=== PATIENT | male | born 1960 | race Caucasian/White ===

== ENCOUNTER → 2022-03-18 12:18 | Outpatient (CLI) | payer OTHER, SELFPAY ==
--- NOTE | ~2022-03-18 | CT_ITS ---
EXAMINATION: CT lung screening DATE: 03/18/2022 12:48 INDICATION: Personal history nicotine dependence, current smoker TECHNIQUE: Computed tomography (CT) of the chest was performed without intravenous contrast. The dose -length product (DLP) was 139.40 mGy-cm. Automated exposure control and iterative reconstruction tech nique were employed. COMPARISON: None FINDINGS: There is mild emphysema. No suspicious pulmonary nodules are identified. No suspicious pulm onary nodules are identified. There is mild dependent atelectasis. There is mild thoracic spondylosis . No pathologically enlarged thoracic lymph nodes are identified. The heart size is normal. There is calcified coronary artery atherosclerosis. The gallbladder is surgically absent. IMPRESSION: 1. Lung-RADS category 1: Negative. Continue annual screening with noncontrast low-dose chest CT in 12 months. Reviewed, dictated and finalized at location F. BOTOMY INSTRUCTOR IMPRESSION: 1. Lung-RADS category 1: Negative. Continue annual screening with noncontrast l ow-dose chest CT in 12 months.
== END ==
PROVIDERS: PCP Family Medicine; Visit Provider Family Medicine
DX: Z12.2 Encounter for screening for malignant neoplasm of respiratory organs (principal); Z87.891 Personal history of nicotine dependence
CPT/HCPCS: 71271

== ENCOUNTER → 2022-04-06 07:45 | Outpatient (CLI) | payer OTHER, SELFPAY ==
--- NOTE | ~2022-04-06 | MR_ITS ---
EXAMINATION: MR lumbar spine wo con DATE: 04/06/2022 08:20 INDICATION: Left-sided sciatica. TECHNIQUE: Magnetic resonance imaging (MRI) of the lumbar spine was performed without intravenous con trast. Sequences included sagittal T2-weighted FSE, sagittal T2-weighted FS FSE, sagittal T1-weighted FSE, and axial T2-weighted FSE. COMPARISON: None FINDINGS: Bone alignment is normal. Vertebral body heights and intervertebral disc heights are normal . The distal spinal cord signal intensity is normal. The conus medullaris is at T12-L1. The following disc levels are specifically discussed: L1-L2: The disc does not extend beyond the endplate margin. There is mild bilateral facet joint osteo arthritis. There is no neural foraminal stenosis. There is no central canal stenosis. L2-L3: The disc does not extend beyond the endplate margin. There is mild bilateral facet joint osteo arthritis. There is no neural foraminal stenosis. There is no central canal stenosis. L3-L4: There is a right foraminal protrusion. There is mild bilateral facet joint osteoarthritis. The re is mild right neural foraminal stenosis. There is no central canal stenosis. L4-L5: The disc is bulging. There is moderate bilateral facet joint osteoarthritis. There is mild alexandra ateral neural foraminal stenosis. There is mild central canal stenosis. L5-S1: The disc is bulging and has an annular fissure. There is moderate right and mild left facet merline int osteoarthritis. There is mild right neural foraminal stenosis. There is mild central canal stenos is. IMPRESSION: 1. Mild lumbar spondylosis. Reviewed, dictated and finalized at location E. GN PRINTING MACHINE SETTER IMPRESSION: 1. Mild lumbar spondylosis.
== END ==
PROVIDERS: PCP Family Medicine; Visit Provider Family Medicine
DX: M54.30 Sciatica, unspecified side (principal); M47.816 Spondylosis without myelopathy or radiculopathy, lumbar region
CPT/HCPCS: 72148

== ENCOUNTER 2023-07-21 12:50 | Outpatient (CLI) | payer OTHER, SELFPAY ==
--- NOTE | ~2023-07-21 | XR_ITS ---
XR_CERV2-3V_CR DATE: 07/21/2023 13:08 INDICATION: Cervical radiculopathy TECHNIQUE: Flexion and extension lateral views. AP view. COMPARISON: None FINDINGS: C1 and C2 are normally aligned and the odontoid process is intact. No fracture or dislocati on or locked facet or prevertebral soft tissue swelling. Moderately prominent degenerative disc disease at C6-7. The remaining cervical interspaces are well p reserved. No instability on flexion or extension is noted. IMPRESSION: Moderately prominent degenerative disc disease at C6-7 Reviewed, dictated and finalized at Location A. Reviewed, dictated and finalized at location B.
== END 2023-07-21 12:51 | disposition home or self-care (01) ==
LOC: ANHIMG 12:54
PROVIDERS: PCP Family Medicine; Visit Provider Neurological Surgery
DX: M47.812 Spondylosis without myelopathy or radiculopathy, cervical region (principal); M50.20 Other cervical disc displacement, unspecified cervical region; M54.12 Radiculopathy, cervical region; M50.323 Other cervical disc degeneration at C6-C7 level
CPT/HCPCS: 72040

== ENCOUNTER 2023-08-15 08:44 | Outpatient (CLI) | payer OTHER, SELFPAY ==
--- NOTE | 2023-08-15 08:53 | ECG_ITS ---
SEE SCANNED COPY FOR CONFIRMED REPORT MTDD
[2023-08-15 09:18] LABS: Hematocrit 47.5 % (42.0-52.0); Hemoglobin 16.3 g/dL (14.0-18.0); Mean Corpuscular HGB Conc 34.3 g/dl (32-36); Mean Corpuscular Hemoglobin 30.4 pg (26-34); Mean Corpuscular Volume 88.6 fl (80-100); Mean Platelet Volume 9.6 fl (7.4-10.4); Platelet Count Result 244 k/mm3 (150-375); Red Blood Count 5.36 M/mm3 (4.6-6.20); Red Cell Distribution Width 12.3 % (11.5-14.5); White Blood Count 8.8 K/mm3 (4.5-10.0)
[2023-08-15 09:30] LABS: Anion Gap 6 mmol/L (4-12); Blood Urea Nitrogen 9 mg/dL (9-20); Calcium 9.9 mg/dL (8.4-10.2); Carbon Dioxide 30 mmol/L (22-30); Chloride 101 mmol/L (98-107); Estimated Glomerular Filt Rate > 60; Glucose 230 mg/dL (65-110); Potassium 3.5 mmol/L (3.4-5.0); Sodium 137 mmol/L (137-145)
[2023-08-15 09:32] LABS: Prothrombin Time 13.1 Seconds (11.1-14.7)
[2023-08-15 09:33] LABS: Hemoglobin A1C 7.2 % (<5.7)
[2023-08-15 09:33] LABS: Partial Thromboplastin Time 38.7 Seconds (22.3-36.8)
[2023-08-15 09:55] LABS: Appearance Urine Clear (Clear); Bacteria Urine None Seen /hpf; Bilirubin Urine 1+ (Negative); Blood Urine Negative (Negative); Color Urine Dark Yellow (Yellow); Glucose Urine UA Trace mg/dL (Negative); Hyaline Casts Urine Present /lpf; Ketones Urine Trace mg/dL (Negative); Leukocyte Esterase Ur Negative LEU/UL (Negative); Need Manual Microscopic Reviewed; Nitrate Urine Negative (Negative); Non Pathogenic Casts >20; Protein Urine 2+ mg/dL (Negative); RBC Urine 0-2 /hpf (0-2); Squamous Epithelial Cell Urine Occasional /hpf (Few); WBC Urine 0-5 /hpf (0-3)
[2023-08-15 09:56] LABS: Add Urine Microscopic? YES
== END 2023-08-15 08:45 | disposition home or self-care (01) ==
LOC: ANHSURGERY 08:47
PROVIDERS: PCP Family Medicine; Visit Provider Neurological Surgery
DX: E11.9 Type 2 diabetes mellitus without complications (principal); I10 Essential (primary) hypertension; M54.12 Radiculopathy, cervical region; Z01.818 Encounter for other preprocedural examination
CPT/HCPCS: 36415; 80048; 81001; 83036; 85027; 85610; 85730; 86850; 86900; 86901; 93005

== ENCOUNTER 2023-08-21 09:04 | Emergency (ER) | payer OTHER, SELFPAY ==
--- NOTE | ~2023-08-21 | CT_ITS ---
EXAMINATION: CT lumbar spine wo con DATE: 08/21/2023 10:09 INDICATION: Lumbar pain. Left hip and leg pain. TECHNIQUE: Computed tomography (CT) of the lumbar spine was performed without intravenous contrast. A utomated exposure control and iterative reconstruction technique were employed. The dose-length produ ct was 400.31 mGy-cm. COMPARISON: Lumbar spine MRI 04/06/2022 FINDINGS: Bone alignment is normal. Vertebral body heights are normal. Intervertebral disc heights ar e normal. The following disc levels are specifically discussed: L1-L2: The disc does not extend beyond the endplate margin. There is mild bilateral facet joint osteo arthritis. There is no neural foraminal stenosis. There is no central canal stenosis. L2-L3: The disc is mildly bulging. There is moderate bilateral facet joint osteoarthritis. There is m ild bilateral neural foraminal stenosis. There is mild central canal stenosis. L3-L4: The disc is bulging. There is mild bilateral facet joint osteoarthritis. There is mild bilater al neural foraminal stenosis. There is mild central canal stenosis. L4-L5: The disc is bulging. There is moderate right and severe left facet joint osteoarthritis. There is mild bilateral neural foraminal stenosis. There is mild central canal stenosis. L5-S1: The disc is bulging. There is moderate bilateral facet joint osteoarthritis. There is mild alexandra ateral neural foraminal stenosis. There is mild central canal stenosis. IMPRESSION: 1. Stable mild lumbar spondylosis. Reviewed, dictated and finalized at location E.
[2023-08-21 09:18] VITALS: BP 147/87; PULSE 79; RESP 20; TEMP 36.7; O2SAT 100
[2023-08-21] MEDS: diazePAM (*CRX) 5 MG TABLET PO (10:32)
[2023-08-21] MEDS: LIDOCAINE 5% PATCH 1 PATCH TRANSDERM (10:32)
[2023-08-21] MEDS: fentaNYL CITRATE INJ (*CRX) 100 MCG/2 ML VIAL 25 MCG IV PUSH (10:33)
[2023-08-21] MEDS: KETOROLAC 30 MG/ML VIAL (*BKC) IV PUSH (10:33)
[2023-08-21 10:34] LABS: Basophils Absolute Auto 0.1 K/mm3 (0.0-0.1); Basophils Percent Auto 1.3 % (0.2-1.2); Eosinophils Absolute Auto 0.3 K/mm3 (0-0.3); Hematocrit 48.2 % (42.0-52.0); Hemoglobin 16.5 g/dL (14.0-18.0); Immature Granulocyte Absolute 0.06 K/mm3 (0.00-0.031); Immature Granulocyte Percent A 0.7 % (0-0.5); Lymphocytes Percent Auto 24.2 % (18.3-44.2); Mean Corpuscular HGB Conc 34.2 g/dl (32-36); Mean Corpuscular Hemoglobin 30.7 pg (26-34); Mean Corpuscular Volume 89.8 fl (80-100); Mean Platelet Volume 9.4 fl (7.4-10.4); Monocytes Absolute Auto 0.7 K/mm3 (0.1-0.6); Monocytes Percent Auto 7.3 % (2.6-8.5); Neutrophils Absolute Auto 5.8 K/mm3 (1.3-6.7); Neutrophils Percent Auto 63.5 % (45.5-73.1); Platelet Count Result 234 k/mm3 (150-375); Red Blood Count 5.37 M/mm3 (4.6-6.20); Red Cell Distribution Width 12.4 % (11.5-14.5); White Blood Count 9.1 K/mm3 (4.5-10.0)
--- NOTE | 2023-08-21 10:35 | ED.GENADULT ---
HPI - General Adult General Chief complaint: Extremity Problem,Nontraumatic Stated complaint: L leg pain denies injury or trauma Time Seen by Provider: 08/21/23 09:19 History of Present Illness HPI narrative: Iain Nguyen is a 62 y/o male who presents with reports of chronic low back pain, he states he is scheduled for surgery with Dr. Silva in 2 days for his cervical spine. He states that he is seeing a new pain management doc but could not get his usual steroid injection due to insurance issues and he is having increased pain to his lower lumbar. He states the increased pain started about 3 weeks ago pain to mid lumbar down left hip/ left thigh and decreased sensation from the knee down to his foot. He states the new paraesthesia started about 2 weeks ago. He denies any new injury / trauma No loss of bowel or bladder Related Data Home Medications Medication Instructions Recorded Confirmed acetaminophen 300 mg-codeine 60 mg 1 tablet PO Q8H PRN Pain 04/12/23 08/14/23 tablet amlodipine 10 mg tablet 10 mg PO DAILY 04/12/23 08/14/23 losartan 50 mg tablet 50 mg PO DAILY 04/12/23 08/14/23 omeprazole 20 mg capsule,delayed 20 mg PO DAILY 04/12/23 08/14/23 release pregabalin 100 mg capsule 100 mg PO BID 04/12/23 08/14/23 evolocumab 140 mg/mL subcutaneous 140 mg subcut MONTHLY 07/13/23 08/14/23 pen injector (Sophia Marroquin) cyanocobalamin (vitamin B-12) 1,000 mcg subcut ONCE 08/14/23 08/14/23 1,000 mcg/mL injection kit ergocalciferol (vitamin D2) 1,250 1,250 mcg PO WEEKLY 08/14/23 08/14/23 mcg (50,000 unit) capsule (Vitamin D2) semaglutide 0.25 mg or 0.5 mg (2 0.5 mg subcut WEEKLY 08/14/23 08/14/23 mg/3 mL) subcutaneous pen injector (Ozempic) Allergies Allergy/AdvReac Type Severity Reaction Status Date / Time acetaminophen [From Vicodin] AdvReac Severe Jittery Verified 08/21/23 09:05 hydrocodone [From Vicodin] AdvReac Severe Jittery Verified 04/22/24 09:05 Review of Systems Review of Systems: CONSTITUTIONAL: Denies fever, chills, or sweats. EYES: Denies visual changes, redness, or discharge. ENT: Denies rhinorrhea, congestion, sore throat, or otalgia. CARDIOVASCULAR: Denies chest pain, palpitations, or edema. RESPIRATORY: Denies cough or dyspnea. GASTROINTESTINAL: Denies abdominal pain, nausea, vomiting, or diarrhea. GENITOURINARY: Denies dysuria or hematuria. SKIN: Denies rash or itching. MUSCULOSKELETAL: mid lower back pain that moves down left leg. NEUROLOGIC: Denies headache, numbness, dizziness, or weakness. PSYCHIATRIC: Denies anxiety or depression. [facility] Family History Family History Father Diabetes mellitus Mother Cerebrovascular accident Social History Social History Smoking packs per day: 1 Smoking cigarettes per day: 20.0 Years smoked: 20 Smoking pack-years: 20.00 Smoking status: Former smoker Tobacco type: cigarettes Smoking end date: 06/30/23 Alcohol intake: never Substance use: current Substance use type: marijuana Do You Feel Safe in your Home?: Yes Lack of Transportation: No Lack of Food: Never True Current Housing: I Have Housing Concerned About Future Housing: No Difficulty Paying Gas/Electric Bills: Decline to Answer Difficulty Paying for Meds: No Currently Unemployed: No Education: High School Diploma/GED Difficulty w/ Childcare or Family Care: No Living arrangements: with family Spiritual care concerns: No Exam Narrative: GENERAL: Well-appearing, well-nourished, and in no acute distress. HEAD: Normocephalic, atraumatic. EYES: PERRLA and EOMI. ENT: Nares clear, no rhinorrhea or epistaxis. Mucous membranes moist. Oropharynx without tonsillar hypertrophy exudate or other lesions. NECK: Supple. No adenopathy or masses. No carotid bruits or JVD CHEST: Clear to auscultation. No respiratory distress. No wheezes
[2023-08-21 10:46] LABS: Anion Gap 3 mmol/L (4-12); Blood Urea Nitrogen 12 mg/dL (9-20); Calcium 9.6 mg/dL (8.4-10.2); Carbon Dioxide 32 mmol/L (22-30); Chloride 101 mmol/L (98-107); Estimated CRCL calculation 95 ml/min; Estimated Glomerular Filt Rate > 60; Glucose 214 mg/dL (65-110); Potassium 4.3 mmol/L (3.4-5.0); Sodium 136 mmol/L (137-145)
[2023-08-21 10:49] VITALS: BP 152/74; PULSE 67; RESP 17; O2SAT 98
== END 2023-08-21 12:40 | disposition home or self-care (01) ==
PROVIDERS: Emergency Provider Nurse Practitioner Family; PCP Family Medicine
DX: M54.50 Low back pain, unspecified (principal); G89.29 Other chronic pain; M47.816 Spondylosis without myelopathy or radiculopathy, lumbar region; Z87.891 Personal history of nicotine dependence
CPT/HCPCS: 36415; 72131; 80048; 85025; 96374; 96375; 99284; A9270; J1885; J3010

== ENCOUNTER 2023-08-21 15:16 | Emergency (ER) | payer OTHER, SELFPAY ==
[2023-08-21 15:21] VITALS: BP 130/72; PULSE 88; TEMP 36.1; O2SAT 98
--- NOTE | 2023-08-21 16:13 | ED.GENADULT ---
HPI - General Adult General Chief complaint: Fall Stated complaint: syncopal, toe injury, right leg pain Time Seen by Provider: 08/21/23 16:14 Focused HPI: Iain Nguyen is a 62 y/o male who presents with reports of tripping on the curb hit his left toe on the curb and fell on to his right knee. He denies hitting his head denies LOC Abrasion to his right knee/ and left great toe abrasion. He was seen earlier for his chronic back pain and states that his back pain still feels better then when he came in earlier today Denies any new numbness/tingling/ loss of bowel or bladder Discussed checking a head CT due to the fall but he states he doesn't need that as he and his witnessed that he did not hit his head GENERAL: Well-appearing, well-nourished, and in no acute distress. HEAD: Normocephalic, atraumatic. CHEST: Clear to auscultation. ?No respiratory distress. HEART: Regular rate and rhythm.? NEURO: ?Alert and oriented x3. Patient screened in triage and initial orders placed.? ?Additional care and disposition to be based upon?diagnostic testing and treatment. Related Data Home Medications Medication Instructions Recorded Confirmed acetaminophen 300 mg-codeine 60 mg 1 tablet PO Q8H PRN Pain 04/12/23 08/14/23 tablet amlodipine 10 mg tablet 10 mg PO DAILY 04/12/23 08/14/23 losartan 50 mg tablet 50 mg PO DAILY 04/12/23 08/14/23 omeprazole 20 mg capsule,delayed 20 mg PO DAILY 04/12/23 08/14/23 release pregabalin 100 mg capsule 100 mg PO BID 04/12/23 08/14/23 evolocumab 140 mg/mL subcutaneous 140 mg subcut MONTHLY 07/13/23 08/14/23 pen injector (Sophia Marroquin) cyanocobalamin (vitamin B-12) 1,000 mcg subcut ONCE 08/14/23 08/14/23 1,000 mcg/mL injection kit ergocalciferol (vitamin D2) 1,250 1,250 mcg PO WEEKLY 08/14/23 08/14/23 mcg (50,000 unit) capsule (Vitamin D2) semaglutide 0.25 mg or 0.5 mg (2 0.5 mg subcut WEEKLY 08/14/23 08/14/23 mg/3 mL) subcutaneous pen injector (Ozempic) Allergies Allergy/AdvReac Type Severity Reaction Status Date / Time acetaminophen [From Vicodin] AdvReac Severe Jittery Verified 08/21/23 09:05 hydrocodone [From Vicodin] AdvReac Severe Jittery Verified 08/21/23 09:05 PMF Family History Family History Father Diabetes mellitus Mother Cerebrovascular accident Social History Social History Smoking packs per day: 1 Smoking cigarettes per day: 20.0 Years smoked: 20 Smoking pack-years: 20.00 Smoking status: Former smoker Tobacco type: cigarettes Smoking end date: 06/30/23 Alcohol intake: never Substance use: current Substance use type: marijuana Do You Feel Safe in your Home?: Yes Lack of Transportation: No Lack of Food: Never True Current Housing: I Have Housing Concerned About Future Housing: No Difficulty Paying Gas/Electric Bills: Decline to Answer Difficulty Paying for Meds: No Currently Unemployed: No Education: High School Diploma/GED Difficulty w/ Childcare or Family Care: No Living arrangements: with family Spiritual care concerns: No Course Vital Signs Vital signs: Vital Signs Temperature 36.1 C L 08/21/23 15:21 Pulse Rate 88 08/21/23 15:21 Blood Pressure 130/72 08/21/23 15:21 Pulse Oximetry 98 08/21/23 15:21 Temperature 36.1 C L 08/21/23 15:21 Pulse Rate 88 08/21/23 15:21 Blood Pressure 130/72 08/21/23 15:21 Pulse Oximetry 98 08/21/23 15:21 Medical Decision Making Vital Signs Vital Signs: Vital Signs Temperature 36.1 C L 08/21/23 15:21 Pulse Rate 88 08/21/23 15:21 Blood Pressure 130/72 08/21/23 15:21 Pulse Oximetry 98 08/21/23 15:21 Temperature 36.1 C L 08/21/23 15:21 Pulse Rate 88 08/21/23 15:21 Blood Pressure 130/72 08/21/23 15:21 Pulse Oximetry 98 04/22/24 15:21 Discharge Plan Discharge Clinical Impression: Fal
--- NOTE | 2023-08-21 16:23 | PC.NURSE ---
Pt told MSE provider he decided he did not want to be seen. Pt triaged. Pt ambulated out in NAD.
== END 2023-08-21 17:17 | disposition left against medical advice (07) ==
LOC: ANHED 16:27
PROVIDERS: Emergency Provider Nurse Practitioner Family; PCP Family Medicine
DX: S89.91XA Unspecified injury of right lower leg, initial encounter (principal)
CPT/HCPCS: 99199

== ENCOUNTER 2023-08-23 00:54 | Day surgery (SDC) | payer OTHER, SELFPAY ==
[2023-08-14 14:15] VITALS: BMI 25.4
--- NOTE | 2023-08-14 14:26 | PC.NURSE ---
Report to the Outpatient Waiting Room, entrance under the green pavilion located off [facility], at time 6:00 on date 08/23/23. Planned Procedure Time: 7:30. Time changes happen often and if your time is changed the preop area will call you the afternoon before. - You and your visitor will be asked to self-screen and do not enter if you have any COVID symptoms. - A mask is optional within the hospital at this time. Patients may have clear liquids (water, carbonated beverages, clear teas, apple juice) until 3 hours prior to surgery (4:30) with a maximum of 20 ounces. - No food from midnight until time of surgery Take the following medications with a SIP of water the morning of surgery: AMLODIPINE, PREGABALIN, PAIN PILL IF NEEDED DO NOT STOP ANY OF YOUR OTHER PRESCRIPTION MEDICATIONS PRIOR TO SURGERY ?EXCEPT THE FOLLOWING Medications to discontinue per physician: VITAMINS/SUPPLEMENTS Date to take last dose: 08/19/23 Please no make-up, nail fijian, hairspray, perfume, deodorant, or body powder the day of surgery. No jewelry (including any body piercings) or valuables the day of surgery, leave them at home. Please take a shower or bath the night before, or the morning of, surgery with an antibacterial soap. Wear comfortable, loose fitting clothing. - Jewelry must be removed prior to entering the operating room. Rings and piercings that are not removed may be cut off. - The hospital will not accept responsibility for valuables. - Please leave all valuables, including medications, at home the day of surgery. If you are going home after surgery, a licensed dump truck driver off highway must drive you home. - NO public transportation without another adult if you receive anesthesia. - We recommend that an adult stay with you for 24 hours following discharge. - We also recommend that you do not drive, make important decision, drink alcoholic beverages, or take any drugs that were not prescribed by your health care provider for at least 24 hours after your discharge time. Follow any additional instructions given to you from your surgeon. If you or anyone in your household have experienced Covid symptoms in the past week, please notify your surgeon or the nurse liaison at the phone number below for possible testing. Telephone instructions given to PT Penny PUGH and asked if any additional questions and then verbalized understanding. Patient advised to call surgeon office or pre surgery nurse liaison [phone] if any additional questions.
[2023-08-23] VITALS (12 sets, daily range): BP systolic 137–188; BP diastolic 77–98; PULSE 73–105; RESP 12–20; TEMP 36.3–37.1; O2SAT 95–100
--- NOTE | ~2023-08-23 | XR_ITS ---
XR fluoroscopy no charge Indication: C5-6, C6-7 discectomy and fusion TECHNIQUE: Fluoroscopy used during C5-6, C6-7 discectomy and fusion performed by [Liset ramos MD] on 08/23/2023. 7 seconds of fluoroscopy with 3 fluoroscopic images captured. FINDINGS: Correlate with procedure note. IMPRESSION: Fluoroscopy used during C5-6, C6-7 discectomy and fusion. Reviewed, dictated and finalized at location B.
[2023-08-23] MEDS: LACTATED RINGERS 1,000 ML 30 ML IV CONT ×2 (06:39→10:38)
[2023-08-23 06:51] LABS: Glucose Point of Care 257 mg/dl (65-105)
[2023-08-23 06:53] LABS: Partial Thromboplastin Time 33.8 Seconds (22.3-36.8)
[2023-08-23] MEDS: INSULIN HUMAN REGULAR (*BKC) 100 UNITS/ML SUB-Q (06:54)
--- NOTE | 2023-08-23 07:16 | WPDHPUPDATE1 ---
History and Physical Update Update Date/Time: 08/23/23 07:16 History and Physical has been reviewed, including an updated exam of the patient. There are NO changes in the patient's condition. Risks, benefits, and alternatives have been discussed and questions answered. Patient agrees to proceed with procedure.
--- NOTE | 2023-08-23 07:16 | WPDANESEPPF ---
Anes - Initial Pre Proc Eval Procedure: Operation Date: 08/23/23 07:30 Proposed Procedures p Anterior Cervical Discectomy and Fusion C5-6, C6-7 - Liset Lopez MD Date/Time: 08/23/23 07:16 Surgeon: Liset Lopez MD Pre Op Diagnosis: Cerv Radiculopathy Patient Data Age: 62 Gender: M Height: 1.75 m Weight: 77.8 kg Last Vital Signs Temp 97.3 F L 08/23/23 06:14 Pulse 90 08/23/23 06:14 Resp 20 08/23/23 06:14 BP 142/77 H 08/23/23 06:14 Pulse Ox 100 08/23/23 06:14 O2 Del Method Room Air 08/23/23 06:14 Allergies Allergy/AdvReac Type Severity Reaction Status Date / Time hydrocodone [From Vicodin] AdvReac Severe Jittery Verified 08/23/23 06:08 Home Medications Medication Instructions Recorded Confirmed Type acetaminophen 300 mg-codeine 60 mg 1 tablet PO Q8H PRN Pain 04/12/23 08/23/23 History tablet amlodipine 10 mg tablet 10 mg PO DAILY 04/12/23 08/23/23 History losartan 50 mg tablet 50 mg PO DAILY 04/12/23 08/23/23 History omeprazole 20 mg capsule,delayed 20 mg PO DAILY 04/12/23 08/23/23 History release pregabalin 100 mg capsule 100 mg PO BID 04/12/23 08/23/23 History evolocumab 140 mg/mL subcutaneous 140 mg subcut MONTHLY 07/13/23 08/23/23 History pen injector (Sophia Marroquin) cyanocobalamin (vitamin B-12) 1,000 mcg subcut ONCE 08/14/23 08/23/23 History 1,000 mcg/mL injection kit ergocalciferol (vitamin D2) 1,250 1,250 mcg PO WEEKLY 08/14/23 08/23/23 History mcg (50,000 unit) capsule (Vitamin D2) semaglutide 0.25 mg or 0.5 mg (2 0.5 mg subcut WEEKLY 08/14/23 08/23/23 History mg/3 mL) subcutaneous pen injector (Stephanie) cyclobenzaprine 10 mg tablet 10 mg PO TID PRN muscle spasm #30 08/21/23 08/23/23 Rx tabs Laboratory Tests 08/23/23 08/23/23 06:36 06:43 APTT 33.8 Seconds (22.3-36.8) POC Capillary Glucose 257 H mg/dl (65-105) Patient hx anesthesia problems: none Family hx anesthesia problems: none Results Review: All pre-operative results and documents have been reviewed as part of the pre-operative evaluation. PMF Family History Family History Father Diabetes mellitus Mother Cerebrovascular accident Social History Social History Smoking packs per day: 1 Smoking cigarettes per day: 20.0 Years smoked: 20 Smoking pack-years: 20.00 Smoking status: Former smoker Tobacco type: cigarettes Smoking end date: 06/30/23 Alcohol intake: never Substance use: current Substance use type: marijuana Do You Feel Safe in your Home?: Yes Lack of Transportation: No Lack of Food: Never True Current Housing: I Have Housing Concerned About Future Housing: No Difficulty Paying Gas/Electric Bills: Decline to Answer Difficulty Paying for Meds: No Currently Unemployed: No Education: High School Diploma/GED Difficulty w/ Childcare or Family Care: No Living arrangements: with family Spiritual care concerns: No Anes - Eval Final PreProcedure Day of Procedure 08/23/23 07:16 Patient weight: normal Heart: regular rate and rhythm Lungs: clear to auscultation Airway: Mallampati scale class II and special considerations (Edentulous. ) Neurological: alert and oriented Last oral intake: >/= 8 hours ASA classification: III Emergent: no Anesthetic plan: proceed Anesthesia type and monitoring: general ETT and standard monitoring Results Review: All pre-operative results and documents have been reviewed as part of the pre-operative evaluation. Pt w FBSB 257 this am, treated w insulin sc. Pt smoked marijuana at 4 am, otherwise typically smokes 1 ppd. Discussed case w surgeon in preop area. Informed Consent: The patient's anesthetic plan and its attendant risks and benefits were discussed with the patient/family/POA. Questions were solicited and answers provided
--- NOTE | 2023-08-23 07:16 | PM.IMHP ---
H&P: HPI History of Present Illness Date/Time: 08/23/23 07:16 Chief Complaint: neck, left arm pain Narrative: From 04/19: Mr. Nguyen is a 62-year-old male with history of diabetes who returns for follow-up neck and left arm pain.? He reports a long history of axial neck pain for which he has had some physical therapy in the past.? Over the last few months, he has developed intermittent pain in the left arm radiating into the 4th and 5th fingers on the left hand.? This occurs a couple times per week but is quite bothersome for him when it occurs.? He has paresthesias in a similar distribution as well as into his middle finger.? 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 He currently takes Tylenol No. 4 for his pain.? He had 1 cervical epidural steroid injection on the left side at C7-T1 with Dr. Shay which was helpful for a couple days.? He has not had any recent physical therapy for his neck.? 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 He denies issues with dropping things.? He reports some longstanding issues with balance and tripping.? He denies any bowel or bladder changes. ? Of note, he is a long-time 2 pack per day smoker but quit a few weeks ago in case he would need any surgical intervention. He follows with driller portable Dr. Pichardo but denies history of heart attack or other cardiac issues. From 07/12: ? Since his last visit, he completed physical therapy which he found helpful for back spasms but not significantly help his neck or arm symptoms.? He had a left C6-7 transforaminal epidural steroid injection at the end of May with Dr. Braun which helped his symptoms for several weeks, but unfortunately he ended up in the emergency room with blood sugars over 500 from the steroid.? He currently is complaining of pain in the left shoulder blade that feels like someone is stabbing him with a knife.? He has paresthesias a continued to radiate down the left arm into the 4th and 5th fingers.? His symptoms have become progressively more bothersome for him and can be quite activity limiting for him.? He currently is taking naproxen.? He unfortunately did start smoking again after our last visit and is currently smoking 1 pack per day. Review of Systems Review of Systems: All systems reviewed & are unremarkable except as noted in HPI and below PMFSH Family History Family History Father Diabetes mellitus Mother Cerebrovascular accident Social History Social History Smoking packs per day: 1 Smoking cigarettes per day: 20.0 Years smoked: 20 Smoking pack-years: 20.00 Smoking status: Former smoker Tobacco type: cigarettes Smoking end date: 06/30/23 Alcohol intake: never Substance use: current Substance use type: marijuana Do You Feel Safe in your Home?: Yes Lack of Transportation: No Lack of Food: Never True Current Housing: I Have Housing Concerned About Future Housing: No Difficulty Paying Gas/Electric Bills: Decline to Answer Difficulty Paying for Meds: No Currently Unemployed: No Education: High School Diploma/GED Difficulty w/ Childcare or Family Care: No Living arrangements: with family Spiritual care concerns: No Meds Home Medications and Allergies Home Medications Medication Instructions Recorded Confirmed Type acetaminophen 300 mg-codeine 60 mg 1 tablet PO Q8H PRN Pain 04/12/23 08/23/23 History tablet amlodipine 10 mg tablet 10 mg PO DAILY 04/12/23 08/23/23 History losartan 50 mg tablet 50 mg PO DAILY 04/12/23 08/23/23 History omeprazole 20 mg capsule,delayed 20 mg PO DAILY 04/12/23 08/23/23 History release pregabalin 100 mg capsule 100 mg PO BID 04/12/23 08/23/23 History evolocumab 140 mg/mL subcutaneous 140 mg subcut MONTHLY 07/13/23 08/23/23 History pen injector (Sophia Marroquin) cyanocobalamin (vitamin B-12) 1,000 mcg subcut
[2023-08-23] MEDS: ceFAZolin 2 GM/D5W 50 ML 2 GM/50 ML BAG IVPB (07:37)
[2023-08-23] MEDS: BUPIVACAINE/EPINEPHRINE 0.5% 50 ML VIAL 20 ML INFILTRATE (08:18)
--- NOTE | 2023-08-23 10:17 | SUR.OPER ---
blood glucose 236 at 10:16 taken on left 2nd toe left big toe with scab below nailbed.
[2023-08-23 10:19] LABS: Glucose Point of Care 236 mg/dl (65-105)
--- NOTE | 2023-08-23 10:37 | P.OPB_ITS ---
Procedure Note - Brief Procedure Note - Brief Date of procedure: 08/23/23 Cerv Radiculopathy Post-op diagnosis: Same Procedure performed: ACDF C5-6, C6-7 Surgeon: Liset Lopez MD Lathe Machine Operator: Lizzette Anesthesia: GETA Findings: Successful ACDF without complication Estimated blood loss (mL): 25 Drains: No Packing: No Pathology: None sent Complications: None Condition: Stable Disposition: PACU
[2023-08-23 10:41] LABS: Glucose Point of Care 220 mg/dl (65-105)
[2023-08-23] MEDS: fentaNYL CITRATE INJ (*CRX) 100 MCG/2 ML VIAL 25 MCG IV PUSH ×4 (11:25→12:16)
--- NOTE | 2023-08-23 12:10 | W.PM.PROC2 ---
Procedure Note - Detailed Date of Procedure 08/23/23 Pre-op Diagnosis Cerv Radiculopathy Post-op Diagnosis Same Procedure Performed 1. Anterior cervical diskectomy C5-6, C6-7 2. Anterior cervical arthrodesis C5-6, C6-7 with i-Factor 3. Anterior cervical interbody placement at C5-6, C6-7 4. Use of microscope for microsurgical dissection 5. Use of C-arm for fluoroscopy Surgeon Liset Lopez MD Flaker Operator Lizzette Anesthesia General Indications Mr. Morgan is a 62-year-old male with history of neck and radicular left arm pain which was unresponsive to physical therapy and STACEY. MRI showed severe central stenosis at C5-6 and C6-7. I recommended surgery in the form of ACDF C5-6, C6-7. Risks including bleeding, pain, infection, weakness, paralysis, stroke, vocal cord damage, coma, and anesthetic risks were discussed. The patient provided written informed consent to proceed. Description of Procedure The patient was taken to the operating room and was transferred to the operating table in the supine position. General anesthesia was induced. Pressure points were appropriately padded, and compression devices were placed on the patient's calves. A shoulder roll was placed. The appropriate level was confirmed with the C-arm XR imaging. The patient was prepped and draped in usual sterile fashion. Perioperative antibiotics were given. Time out was performed. Local anesthesia was injected into the planned incision site. Incision was made with a 10-blade scalpel on the right side of the neck. The subcutaneous tissue was undermined above the platysma with the Metzenbaum scissors. The platysma was sharply opened horizontally. Bleeding was controlled with the bipolar. The avascular plane to the spine was dissected sharply. The anterior border of the spine was located and exposed with sharp and blunt dissection. A spinal needle was used to localize the C6-7 disc space; this was confirmed on fluoroscopy. The longus coli muscles were elevated bilaterally with a bovie. Once the C5, C6, and C7 vertebral bodies and adjacent intervertebral discs were adequately exposed, self-retaining retractors were placed. Saranac pins were placed in the C5 and C6 vertebral bodies and were distracted. An 11-blade scalpel was used to incise the C5-6 disc. A combination of Kerrisons, currettes, and pituitary instruments were used to remove each disc. The microscope was draped and brought into the surgical field. The removal of disc and osteophytes were completed using a high-speed drill, multiple Kerrison punches, and currettes. The posterior longitudinal ligament was opened with a nerve hook and kerrison rongeurs until the neuroforamen bilaterally were adequately decompressed. Interbody trial instruments were used to determine the appropriate size for the prosthetic vertebral interbody cage. Hemostasis was achieved in the disc space with surgiflo and cottonoid patties. A 6mm interbody was filled with i-Factor and placed at C5-6. The caspar pin was removed from C5 and replaced in C7. Wax was placed in the caspar pin site. This process was repeated at the C6-7 disc. The disc was removed as described above, and the posterior longitudinal ligament was opened until the neuroforamen bilaterally were adequately decompressed. Interbody trial instruments were used to determine the appropriate size for the prosthetic vertebral interbody cage. Hemostasis was achieved in the disc space. A 6mm interbody was filled with i-Factor and placed at C6-7. The Saranac pins were removed, and bone wax was used for hemostasis. Osteophytes over the vertebral bodies were removed with a Leksell and high-speed drill. A 32mm plate was placed over the vertebral bodies and secured with 14mm screws. Accurate hardware placement was confirmed with fluoroscopy. The surgical cavity was copiously irrigated; appropriate hemostasis was verified; and there was no evidence of dural tear/CSF leak. The platysma was closed with interrupted 3-0 Vicryl,
--- NOTE | 2023-08-23 12:50 | ADMGEN ---
This patient, Iain Nguyen, was admitted to 3 [facility] Surg Room 300-01. Patient/family oriented to hospital policies and general routines including ID bracelet, bed and alarms, visiting hours, pain management, procedures, bathroom and other care routines, personal items, smoking policy, room service/diet, and visiting hours. Information on how to activate the Rapid Response Team has been discussed. Patient/Family are encouraged to report perceived risks to care and to ask questions if they do not understand what they are told or what they should do.
[2023-08-23] MEDS: SODIUM CHLORIDE 0.9% IV 1,000 ML 100 ML IV CONT (13:01)
[2023-08-23] MEDS: ACETAMINOPHEN 500 MG TABLET 1000 MG PO ×3 (13:01→23:52)
[2023-08-23] MEDS: PROPARACAINE HCL 0.5% 15 ML OPHTH SOLN 1 DROP EACH EYE (13:07)
--- NOTE | 2023-08-23 13:50 | PCPTNOTE ---
Attempted PT evaluation, pt refused due to R eye pain. RN aware.
[2023-08-23] MEDS: DICLOFENAC SODIUM 0.1% OPHTH SOLN 2.5 ML BOTTLE 1 DROP EACH EYE ×2 (15:14→21:26)
[2023-08-23] MEDS: oxyCODONE HCL (*CRX) 5 MG TAB IR PO ×2 (15:14→18:48)
[2023-08-23] MEDS: ceFAZolin 1 GM/NS 50 ML 1 GM/50 ML BAG IVPB ×2 (15:15→23:52)
[2023-08-23] MEDS: ARTIFICIAL TEARS OPHTH SOLN 15 ML BOTTLE 1 DROP EACH EYE (16:06)
[2023-08-23] MEDS: PREGABALIN (*CRX) 50 MG CAPSULE 100 MG PO (17:32)
[2023-08-23] MEDS: DOCUSATE SODIUM 100 MG CAPSULE PO (21:26)
[2023-08-24 00:37] VITALS: BP 143/76; PULSE 78; RESP 16; TEMP 36.6; O2SAT 99
[2023-08-24 04:48] VITALS: BP 146/76; PULSE 76; RESP 18; TEMP 36.3; O2SAT 99
[2023-08-24] MEDS: ACETAMINOPHEN 500 MG TABLET 1000 MG PO (06:11)
[2023-08-24] MEDS: ceFAZolin 1 GM/NS 50 ML 1 GM/50 ML BAG IVPB (06:11)
[2023-08-24] MEDS: DICLOFENAC SODIUM 0.1% OPHTH SOLN 2.5 ML BOTTLE 1 DROP EACH EYE (06:12)
[2023-08-24 08:00] VITALS: BP 142/66; PULSE 68; RESP 18; TEMP 36.7; O2SAT 98
[2023-08-24] MEDS: oxyCODONE HCL (*CRX) 5 MG TAB IR PO (08:08)
[2023-08-24] MEDS: PANTOPRAZOLE 40 MG TABLET PO (08:09)
[2023-08-24] MEDS: LOSARTAN POTASSIUM 50 MG TABLET PO (08:09)
[2023-08-24] MEDS: PREGABALIN (*CRX) 50 MG CAPSULE 100 MG PO (08:09)
[2023-08-24] MEDS: DOCUSATE SODIUM 100 MG CAPSULE PO (08:09)
[2023-08-24] MEDS: amLODIPine BESYLATE 5 MG TABLET 10 MG PO (08:09)
--- NOTE | 2023-08-24 09:14 | WPDNEUROSGPN ---
Progress Note: A&P Assessment and Plan (1) Status post cervical arthrodesis: Code(s): Z98.1 - Arthrodesis status Status: Acute Plan -Discharge home this morning -Wound care and activity precautions discussed at bedside -Follow up in clinic in 2 weeks Subjective Date/time seen: 08/24/23 09:14 Interval history: Doing very well with limited pain in neck. He denies pain or paresthesias in arms. Swallowing without difficulty. He has ambulated in the halls multiple times. Voiding without difficulty Review of Systems Review of Systems: All systems reviewed & are unremarkable except as noted in HPI and below Exam Narrative: AOx4 Full strength in upper extremities Sensation intact to light touch Incision c/d/i Objective Data Vital Signs Vital Signs: Vital Signs - 24 hr 08/23/23 10:38 08/23/23 10:55 08/23/23 11:09 Temperature 97.3 F L Pulse Rate 73 80 78 Respiratory Rate 17 14 12 Blood Pressure 137/79 178/91 H 179/97 H Pulse Oximetry 100 100 100 Oxygen Delivery Simple Face Mask Simple Face Mask Simple Face Mask Oxygen Flow Rate 8 8 8 08/23/23 11:25 08/23/23 11:40 08/23/23 11:55 Temperature Pulse Rate 80 82 84 Respiratory Rate 15 15 15 Blood Pressure 174/98 H 174/98 H 170/86 H Pulse Oximetry 95 95 95 Oxygen Delivery Room Air Room Air Room Air Oxygen Flow Rate 08/23/23 13:00 08/23/23 12:09 08/23/23 12:39 Temperature 98 F 97.4 F L Pulse Rate 92 93 Respiratory Rate 16 16 Blood Pressure 180/80 H 188/80 H Pulse Oximetry 96 96 Oxygen Delivery Room Air Oxygen Flow Rate 08/23/23 13:39 08/23/23 17:39 08/23/23 21:26 Temperature 97.8 F 97.9 F 98.7 F Pulse Rate 92 93 105 H Respiratory Rate 16 16 18 Blood Pressure 181/83 H 178/81 H 149/77 H Pulse Oximetry 96 97 97 Oxygen Delivery Oxygen Flow Rate 08/24/23 00:37 08/24/23 04:48 08/24/23 08:00 Temperature 97.8 F 97.3 F L 98.0 F Pulse Rate 78 76 68 Respiratory Rate 16 18 18 Blood Pressure 143/76 H 146/76 H 142/66 H Pulse Oximetry 99 99 98 Oxygen Delivery Oxygen Flow Rate Intake/Output Intake/Output: Intake & Output 08/21/23 08/22/23 08/23/23 08/24/23 23:59 23:59 23:59 23:59 Intake Total 1180 650 Output Total 300 Balance 880 650 Meds/Results Medications: Active Medications Generic Name Dose Route Start Last Admin Trade Name Freq PRN Reason Stop Dose Admin Acetaminophen 1,000 mg 08/23/23 12:00 08/24/23 06:11 Acetaminophen 500 Mg Tablet PO 1,000 mg Q6H MARILYN Administration Al Hydrox/Mg Hydrox/Simethicone 20 ml 08/23/23 10:39 Mag Hydrox/Al Hydrox/Simeth 30 Ml Udc PO Q4H PRN Indigestion/Heartburn Amlodipine Besylate 10 mg 08/24/23 09:00 08/24/23 08:09 Amlodipine Besylate 5 Mg Tablet PO 10 mg DAILY MARILYN Administration Artificial Tears 1 drop 08/23/23 12:56 08/23/23 16:06 Artificial Tears Ophth Soln 15 Ml Bottle EACH EYE 1 drop Q2H PRN Administration Dry Eye(s) Bisacodyl 10 mg 08/23/23 10:39 Bisacodyl 10 Mg Suppository RECTAL DAILY PRN Constipation Cyclobenzaprine HCl 10 mg 08/23/23 10:41 Cyclobenzaprine Hcl 10 Mg Tablet PO TID PRN Muscle Spasms Diclofenac Sodium 1 drop 08/23/23 14:00 08/24/23 06:12 Diclofenac Sodium 0.1% Ophth Soln 2.5 Ml Bottle EACH EYE 08/27/23 13:59 1 drop Q8HR MARILYN Administration Docusate Sodium 100 mg 08/23/23 21:00 08/24/23 08:09 Docusate Sodium 100 Mg Capsule PO 100 mg Q12HR MARILYN Administration Cefazolin Sodium 1 gm in 50 mls @ 100 mls/hr 08/23/23 15:00 08/24/23 06:41 Ancef 1 Gm/Ns 50 Ml IVPB 08/24/23 14:59 Infused Q8H MARILYN Infusion Losartan Potassium 50 mg 08/24/23 09:00 08/24/23 08:09 Losartan Potassium 50 Mg Tablet PO 50 mg DAILY MARILYN Administration Ondansetron HCl 4 mg 08/23/23 10:39 Ondansetron Inj 4 Mg/2 Ml Vial IV PUSH Q8H PRN Nausea And Vomiting Oxycodone HCl 5 mg 08/23/23 10:41 08/24/23 08:08
--- NOTE | 2023-08-24 13:19 | WPDANESPN ---
Anes - Prog Note Post-Op Date/Time: 08/24/23 13:19 Vital Signs: Last Vital Signs Temp 36.7 C 08/24/23 08:00 Pulse 68 08/24/23 08:00 Resp 18 08/24/23 08:00 BP 142/66 H 08/24/23 08:00 Pulse Ox 98 08/24/23 08:00 O2 Del Method Room Air 08/24/23 09:00 O2 Flow Rate 8 08/23/23 11:09 Pain Score (VAS): 1 I/O: Intake & Output 08/23/23 08/24/23 08/24/23 23:59 07:59 15:59 Intake Total 480 100 790 Balance 480 100 790 Patient Feedback: Patient satisfied with anesthetic care.
== END 2023-08-24 10:24 | disposition home or self-care (01) ==
LOC: ANHSURGERY 09:57 → ANH3MEDSUR 12:32
PROVIDERS: PCP Family Medicine; Visit Provider Neurological Surgery
PROC: (CPT 63030; principal; 2023-08-23 07:30)
DX: M48.02 Spinal stenosis, cervical region (principal); M54.12 Radiculopathy, cervical region; E11.9 Type 2 diabetes mellitus without complications; Z87.891 Personal history of nicotine dependence; Z79.85 Long-term (current) use of injectable non-insulin antidiabetic drugs
CPT/HCPCS: 22551; 22552; 22853 ×2; 36415; 80048; 81001; 82948; 83036; 85027; 85610; 85730; 86850; 86900; 86901; 93005; 97161; 97165; 99199; A9270; C1713; J0690; J1100; J1815; J2250; J2405; J2704; J3010; J7030; J7120

== ENCOUNTER 2023-09-14 13:08 | Outpatient (CLI) | payer OTHER, SELFPAY ==
--- NOTE | ~2023-09-14 | XR_ITS ---
EXAMINATION: XR_[id number]_CR DATE: 09/14/2023 13:23 INDICATION: Arthrodesis status. TECHNIQUE: 4 views of cervical spine were obtained. COMPARISON: Cervical spine radiographs 07/21/2023 FINDINGS: There is 5 degrees levocurvature of the cervicothoracic spine. There are changes of anterio r fusion procedure from C5 to C7 with interbody devices and anterior plate and screws. Vertebral body heights are normal. Intervertebral disc heights are normal. There is multilevel mild facet joint ost eoarthritis. IMPRESSION: 1. Anterior fusion procedure from C5 to C7. Reviewed, dictated and finalized at location E.
== END 2023-09-14 13:09 | disposition home or self-care (01) ==
LOC: ANHIMG 13:09
PROVIDERS: PCP Family Medicine; Visit Provider Neurological Surgery
DX: Z98.1 Arthrodesis status (principal)
CPT/HCPCS: 72040

== ENCOUNTER 2023-09-21 10:42 | Outpatient (CLI) | payer OTHER, SELFPAY ==
--- NOTE | ~2023-09-21 | CT_ITS ---
EXAMINATION: CT lung screening DATE: 09/21/2023 10:58 INDICATION: Personal history of nicotine dependence TECHNIQUE: Computed tomography (CT) of the chest was performed without intravenous contrast. Automate d exposure control and iterative reconstruction technique were employed. Exam dose: 108.87 mGy-cm to flavio exam DLP. COMPARISON: 03/18/2022 CT lung screening FINDINGS: Mild emphysematous changes of the lungs. Scattered occasional discoid atelectasis and/or scarring. Normal heart size. Aortic, great vessel and coronary artery calcifications. No pericardial or pleural effusion. No hilar or mediastinal mass lesion or lymphadenopathy. Status post cholecystectomy. Status post anterior cervical spine surgical fusion. No suspicious osteolytic or osteoblastic lesions . IMPRESSION: [id number] 1: Negative. No lung nodules. Reviewed, dictated and finalized at Location A. Reviewed, dictated and finalized at location B. IMPRESSION: [id number] 1: Negative. No lung nodules.
== END 2023-09-21 10:43 ==
DX: Z12.2 Encounter for screening for malignant neoplasm of respiratory organs (principal); Z87.891 Personal history of nicotine dependence
CPT/HCPCS: 71271

== ENCOUNTER 2023-10-17 08:17 | Outpatient (CLI) | payer OTHER, SELFPAY ==
--- NOTE | ~2023-10-17 | MR_ITS ---
EXAMINATION: MR lumbar spine wo con DATE: 10/17/2023 08:44 INDICATION: Lumbago. Left-sided sciatica. TECHNIQUE: Magnetic resonance imaging (MRI) of the lumbar spine was performed without intravenous con trast. Sequences included sagittal T2-weighted FSE, sagittal T2-weighted FS FSE, sagittal T1-weighted FSE, and axial T2-weighted FSE. COMPARISON: Lumbar spine MRI 04/06/2022 FINDINGS: Bone alignment is normal. Vertebral body heights are normal. Intervertebral disc heights ar e normal. The distal spinal cord signal intensity is normal. The conus medullaris is at L1. There is a 9 mm cyst in left kidney. The following disc levels are specifically discussed: L1-L2: The disc does not extend beyond the endplate margin. There is mild bilateral facet joint osteo arthritis. There is no neural foraminal stenosis. There is no central canal stenosis. L2-L3: The disc does not extend beyond the endplate margin. There is mild bilateral facet joint osteo arthritis. There is no neural foraminal stenosis. There is no central canal stenosis. L3-L4: The disc does not extend beyond the endplate margin. There is moderate right and mild left fac et joint osteoarthritis. There is no neural foraminal stenosis. There is no central canal stenosis. L4-L5: The disc is mildly bulging. There is moderate bilateral facet joint osteoarthritis. There is m ild right neural foraminal stenosis. There is no central canal stenosis. L5-S1: The disc is bulging and has an annular fissure. There is mild bilateral facet joint osteoarthr itis. There is mild bilateral neural foraminal stenosis. There is mild central canal stenosis. IMPRESSION: 1. Mild lumbar spondylosis, stable from 04/06/2022. Reviewed, dictated and finalized at location E.
== END 2023-10-17 08:18 ==
PROVIDERS: PCP Family Medicine; Visit Provider Family Medicine
DX: M54.42 Lumbago with sciatica, left side (principal); M43.06 Spondylolysis, lumbar region
CPT/HCPCS: 72148

== ENCOUNTER 2024-01-04 07:08 | Outpatient (CLI) | payer OTHER, SELFPAY ==
--- NOTE | ~2024-01-04 | XR_ITS ---
Cervical Spine: AP, lateral, open-mouth views Clinical History: Arthrodesis status COMPARISON: 09/14/2023 Findings: Stable anterior and interbody fusion from C5 to C7. Osseous and orthopedic hardware alignme nt is unchanged. Stable mild facet joint degenerative changes.. Pre-vertebral soft tissues are unrema rkable. Impression: Stable anterior and interbody fusion from C5 to C7. Reviewed, dictated and finalized at [facility]. Impression: Stable anterior and interbody fusion from C5 to C7.
== END 2024-01-04 07:09 | disposition home or self-care (01) ==
PROVIDERS: PCP Family Medicine; Visit Provider Neurological Surgery
DX: Z98.1 Arthrodesis status (principal)
CPT/HCPCS: 72040

== ENCOUNTER 2024-01-22 13:34 | Outpatient (CLI) | payer OTHER, SELFPAY ==
--- NOTE | ~2024-01-22 | CT_ITS ---
EXAMINATION: CT cervical spine wo con DATE: 01/22/2024 14:07 INDICATION: Fracture of the neck, unspecified, initial contour. TECHNIQUE: Computed tomography (CT) of the cervical spine was performed without intravenous contrast. Automated exposure control and iterative reconstruction technique were employed. The dose-length pro duct was 300.53 mGy-cm. COMPARISON: Radiographs dated 09/14/2023 and 01/04/2024 FINDINGS: Alignment is normal. Attempted C5-C7 anterior spinal fusion with interbody fusion devices. There appe ars to be some residual lucency between the inferior aspect of C5 and the bone graft material which a ppears to incorporate with C6. There appears be a developing minimal amount of early osseous bridging at the posterior aspect of the C6-C7 disc space. There is also an associated attempted anterior plat e-screw fixation, unchanged since the more recent prior radiographs with backing out of the screws at C6 and C7. There is minimal residual purchase of the C7 screws. The inferior aspect of the plate is elevated 9 mm from the anterior margin of the C7 vertebral body. This is likely subacute as the trac ks from the background screws appear to be healed with no residual lucency. Vertebral body heights ar e normal. No acute fracture. Mild disc height loss at C7-T1 and T1-T2. There are some curvilinear dys trophic calcification both lung the anterior margin of the thickened prevertebral soft tissues at the caudal margin of the elevated plate as well as extending superficially towards the skin surface betw een the right thyroid lobe and the more lateral right common carotid artery and internal jugular vein likely along the prior surgical bed. Mild paraseptal emphysema at the bilateral apices of lungs. Sma ll calcified left apical nodule consistent with old granulomatous disease. The following disc levels are specifically discussed: C2-C3: There is mild bilateral uncovertebral joint osteoarthritis. There is mild bilateral facet join t osteoarthritis. There is no neural foraminal stenosis. There is no central canal stenosis. C3-C4: There is mild bilateral uncovertebral joint osteoarthritis. There is mild right and moderate l eft facet joint osteoarthritis. There is no neural foraminal stenosis. There is no central canal sten osis. C4-C5: There is mild bilateral uncovertebral joint osteoarthritis. There is minimal bilateral facet j oint osteoarthritis. There is no neural foraminal stenosis. There is no central canal stenosis. C5-C6: There is mild left and moderate right uncovertebral joint osteoarthritis. There is mild bilate ral facet joint osteoarthritis. There is no neural foraminal stenosis. There is no central canal sten osis. C6-C7: Small posterior endplate osteophytes. There is moderate bilateral uncovertebral joint osteoar thritis. There is mild bilateral facet joint osteoarthritis. There is moderate right and mild to mode rate left neural foraminal stenosis. There is mild central canal stenosis. C7-T1: here is no uncovertebral joint osteoarthritis. There is mild bilateral facet joint osteoarthr itis. There is no neural foraminal stenosis. There is no central canal stenosis. IMPRESSION: 1. Mild cervical spondylosis with instrumented C5-C7 anterior spinal fusion with backing out of the f ixation screws at C6 and C7 and elevation of the caudal aspect of the anterior plate. Reviewed, dictated and finalized at location A. IMPRESSION: 1. Mild cervical spondylosis with instrumented C5-C7 anterior spinal fusion wit h backing out of the fixation screws at C6 and C7 and elevation of the caudal a spect of the anterior plate.
== END 2024-01-22 13:35 | disposition home or self-care (01) ==
LOC: ANHIMG 13:35
PROVIDERS: PCP Family Medicine; Visit Provider Neurological Surgery
DX: S12.9XXA Fracture of neck, unspecified, initial encounter (principal); T84.216A Breakdown (mechanical) of internal fixation device of vertebrae, initial encounter; X58.XXXA Exposure to other specified factors, initial encounter; M47.892 Other spondylosis, cervical region; Z98.1 Arthrodesis status
CPT/HCPCS: 72125

== ENCOUNTER 2024-02-08 09:49 | Outpatient (CLI) | payer OTHER, SELFPAY ==
--- NOTE | 2024-02-08 12:45 | NEURO_ITS ---
Clinical note: The patient has complaints of paresthesias in both lower limbs greater on left than right side. The patient also complains of weakness in the legs. On a brief neurological examination no focal muscle wasting or fasciculations or weakness was noted. Please refer to a detailed electrodiagnostic evaluation. Summary of findings: 1. Right peroneal motor was absent over extensor digitorum brevis however a motor response over tibialis anterior shows mild slowing across the fibular head. No significant conduction block was noted. Left peroneal motor distal latency and amplitudes were within normal limits however conduction velocity from fibular head to ankle was mildly decreased. No slowing across the fibular head. 2. Bilateral tibial motor. Conduction velocities were mildly decreased. 3. Bilateral medial plantar sensory distal latencies were moderately prolonged the amplitudes significant decreased. Conduction velocity is also decreased. 4. Bilateral sural sensory distal latencies are prolonged on the left and normal on the right side and which is more decreased on the left and normal on the right side. 5. H reflexes were mildly prolonged on the left than right side however amplitudes were decreased on the right than left side. 6. EMG nerve study was performed with greater attention to the muscles in the thigh on the left side which did not show any denervation changes. Moderate chronic denervation changes seen in the right peroneus longus and moderate loss of recruitment was noted in the right tibialis anterior and right peroneus longus. Remainder of the examination including that of the paraspinal muscles did not show any denervation changes. Impression: 1. 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 Although a focal slowing was not demonstrated across the fibular head while recording over tibialis anterior this may still be a possibility specially habitual leg Crosser. Motor neuropathy of this nerve can also occur in patients diabetes due to an axonal lesion. A follow-up study in future may be helpful. 3. No evidence for lumbosacral radiculopathy or diabetic amyotrophy at this time Odell Lemus MD, FAAN, FAANEM Neurology / electrodiagnostic Medicine Nerve Conduction Studies Motor Nerve Results Latency Amplitude Segment Distance CV Comment Site (ms) (mV) (cm) (m/s) Right Dp Branch Fibular (TA) Motor Fib Head 3.5 2.4 Pop Fossa 5.9 1.77 Pop Fossa-Fib Head 90 38 Left Fibular (EDB) Motor Ankle 5.6 3.6 Bel Fib Head 14.1 2.4 Bel Fib Head-Ankle 310 36 Pop Fossa 15.9 3.0 Pop Fossa-Bel Fib Head 80 44 Right Fibular (EDB) Motor Ankle NR NR Bel Fib Head NR NR Bel Fib Head-Ankle 320 NR Pop Fossa NR NR Pop Fossa-Bel Fib Head 80 NR Left Tibial (AHB) Motor Ankle 5.0 6.1 Knee 17.3 4.5 Knee-Ankle 440 36 Right Tibial (AHB) Motor Ankle 4.8 4.7 Knee 16.3 2.9 Knee-Ankle 430 37 Sensory Nerve Results Latency (Peak) Amplitude (P-P) Segment Distance CV Comment Site (ms) (?V) (cm) (m/s) Left Medial Plantar (Ortho) Sensory Great Toe-Med Mall 5.9 3 Great Toe-Med Mall 100 17 Right Medial Plantar (Ortho) Sensory Great Toe-Med Mall 4.5 5 Great Toe-Med Mall 110 24 Left Sural Sensory Calf-Lat Mall 4.5 5 Calf-Lat Mall 120 27 Right Sural Sensory Calf-Lat Mall 3.8 10 Calf-Lat Mall 120 32 H-Reflex Results M-Lat H Lat H-
== END 2024-02-08 09:50 | disposition home or self-care (01) ==
LOC: ANHNEURO 09:50
PROVIDERS: PCP Family Medicine; Visit Provider Neurological Surgery
DX: M50.20 Other cervical disc displacement, unspecified cervical region (principal); G62.9 Polyneuropathy, unspecified
CPT/HCPCS: 95886; 95911

== ENCOUNTER 2024-02-16 08:44 | Outpatient (CLI) | payer OTHER, SELFPAY ==
--- NOTE | ~2024-02-16 | MR_ITS ---
MRI of the cervical spine Clinical History: Fracture Technique: Axial T2-weighted and gradient images, and sagittal T1-weighted, T2-weighted, and STIR fernando ges were acquired. Findings: Anterior fusion from C5 to C7 is present. No acute fracture or subluxation seen. No suspici ous bone marrow signal abnormality seen. At C2-C3, there is no disc bulge or herniation. No spinal canal stenosis, cord compression, or neural foraminal narrowing. At C3-C4, there is no disc bulge or herniation. No spinal canal stenosis, cord compression, or neural foraminal narrowing. At C5-C6, there is small central disc bulge. No spinal canal stenosis, cord compression, or neural fo raminal narrowing. At C5-6, there is no definite disc bulge or herniation. No spinal canal stenosis, cord compression, o r neural foraminal narrowing. At C6-C7, there is no disc bulge or herniation. No spinal canal stenosis or cord compression. There i s probable bilateral neural foraminal narrowing. No abnormal signal seen in the spinal cord. Paravertebral soft tissues are unremarkable. Impression: Anterior fusion from C5 to C7. Probable bilateral neural foraminal narrowing at C6-C7. Reviewed, dictated and finalized at location . Impression: Anterior fusion from C5 to C7. Probable bilateral neural foraminal narrowing at C6-C7.
== END 2024-02-16 08:45 | disposition home or self-care (01) ==
PROVIDERS: PCP Family Medicine; Visit Provider Neurological Surgery
DX: S12.9XXA Fracture of neck, unspecified, initial encounter (principal); T84.216A Breakdown (mechanical) of internal fixation device of vertebrae, initial encounter; X58.XXXA Exposure to other specified factors, initial encounter; Z98.1 Arthrodesis status
CPT/HCPCS: 72141

== ENCOUNTER 2024-03-26 12:20 | Outpatient (CLI) | payer OTHER, SELFPAY ==
[2024-03-26 12:44] LABS: Hematocrit 50.1 % (42.0-52.0); Hemoglobin 17.2 g/dL (14.0-18.0); Mean Corpuscular HGB Conc 34.3 g/dl (32-36); Mean Corpuscular Hemoglobin 29.9 pg (26-34); Mean Corpuscular Volume 87.1 fl (80-100); Mean Platelet Volume 9.5 fl (7.4-10.4); Platelet Count Result 204 k/mm3 (150-375); Red Blood Count 5.75 M/mm3 (4.6-6.20); Red Cell Distribution Width 12.7 % (11.5-14.5); White Blood Count 7.8 K/mm3 (4.5-10.0)
[2024-03-26 12:46] LABS: Add Urine Microscopic? NO; Appearance Urine Clear (Clear); Bilirubin Urine Negative (Negative); Blood Urine Negative (Negative); Color Urine Yellow (Yellow); Glucose Urine UA 3+ mg/dL (Negative); Ketones Urine Negative (Negative); Leukocyte Esterase Ur Negative LEU/UL (Negative); Nitrate Urine Negative (Negative); Protein Urine Negative (Negative); Specific Grav Ur 1.036 (1.001-1.035); Urobilinogen Urine 0.2 mg/dL (<2.0); pH Urine 5.5 (5.0-9.0)
[2024-03-26 12:55] LABS: Anion Gap 4 mmol/L (4-12); Blood Urea Nitrogen 9 mg/dL (9-20); Calcium 9.1 mg/dL (8.4-10.2); Carbon Dioxide 30 mmol/L (22-30); Chloride 103 mmol/L (98-107); Estimated Glomerular Filt Rate > 60; Glucose 169 mg/dL (65-110); Potassium 3.1 mmol/L (3.4-5.0); Sodium 137 mmol/L (137-145)
[2024-03-26 12:56] LABS: Hemoglobin A1C 9.5 % (<5.7)
[2024-03-26 12:59] LABS: Prothrombin Time 13.3 Seconds (11.1-14.7)
== END 2024-03-26 12:21 | disposition home or self-care (01) ==
LOC: ANHSURGERY 12:26
PROVIDERS: PCP Family Medicine; Visit Provider Neurological Surgery
DX: T84.216A Breakdown (mechanical) of internal fixation device of vertebrae, initial encounter (principal)
CPT/HCPCS: 36415; 80048; 81003; 83036; 85027; 85610; 85730; 86850; 86900; 86901

== ENCOUNTER 2024-04-03 12:49 | Inpatient (IN) | payer SELFPAY ==
[2024-03-22 13:10] VITALS: BMI 25.1
--- NOTE | 2024-03-22 13:11 | PC.NURSE ---
Report to the Outpatient Waiting Room, entrance under the green pavilion located off [facility], at time _0600_ on date _[phone]_. Planned Procedure Time: _0730_.? Time changes happen often and if your time is changed the preop area will call you the afternoon before. - You and your visitor will be asked to self-screen and do not enter if you have any COVID symptoms. Please call surgeon if you need to reschedule. - A mask is optional within the hospital at this time. Patients may have clear liquids (water, carbonated beverages, clear teas, apple juice) until 3 hours prior to surgery with a maximum of 20 ounces. - No food from midnight until time of surgery and no smoking. This includes no chewing gum, candy or mints. Take only the following medications with a SIP of water on the morning of surgery: __Amlodipine and Pregabalin No diabetic medications morning of surgery. DO NOT STOP ANY OF YOUR OTHER PRESCRIPTION MEDICATIONS PRIOR TO SURGERY EXCEPT THE FOLLOWING Medications to discontinue per physician ___Vitamins____ Date to take last strv____[phone]___ Please no make-up, nail bulgarian, hairspray, perfume, deodorant, or body powder the day of surgery.? No jewelry (including any body piercings) or valuables the day of surgery, leave them at home.? Please take a shower or bath the night before, or the morning of, surgery with an antibacterial soap.? Wear comfortable, loose fitting clothing.? - Jewelry must be removed prior to entering the operating room.? Rings and piercings that are not removed may be cut off. - The hospital will not accept responsibility for valuables.? - Please leave all valuables, including medications, at home the day of surgery. If you are going home after surgery, a licensed student truck driver must drive you home.? - NO public transportation without another adult if you receive anesthesia. - We recommend that an adult stay with you for 24 hours following discharge. - We also recommend that you do not drive, make important decision, drink alcoholic beverages, or take any drugs that were not prescribed by your health care provider for at least 24 hours after your discharge time. Follow any additional instructions given to you from your surgeon. Telephone instructions given to _Glen__and asked if any additional questions and then verbalized understanding. Patient advised to call surgeon office or pre surgery nurse liaison [phone] if any additional questions.
[2024-04-03] VITALS (17 sets, daily range): BP systolic 151–187; BP diastolic 71–96; PULSE 84–104; RESP 12–20; TEMP 36.3–37; O2SAT 94–100; BMI 24.7; BMI 26.1
--- NOTE | ~2024-04-03 | XR_ITS ---
EXAMINATION: XR fluoroscopy no charge DATE: 04/03/2024 12:31 INDICATION: Posterior arthrodesis of C5-C7 and revision of C5 C7 anterior spinal fusion. TECHNIQUE: 8 fluoroscopic images and one lateral radiograph of the cervical spine were obtained tad barnes procedure performed by Dr. Lopez. Radiologist was not present for the imaging or procedure. The a mount of fluoroscopy time used during this procedure was 0.5 minutes. Total DAP was 1.50 Gycm^2 COMPARISON: CT dated 01/22/2024 and radiographs dated 01/04/2024 FINDINGS: Images demonstrate placement of a new C5-C7 instrumented posterior spinal fusion with bilateral verti awa edenilson and lateral mass screw fixation. Again seen are C5-C6 and C6-C7 discectomies with instrumente d anterior spinal fusion with bilateral interbody fusion devices and anterior plate and screw fixatio n. On the initial fluoroscopic image of this appears unchanged from the prior radiographs with backin g out of the caudal-most screws and elevation of the plate from the underlying anterior margin of the vertebral body. The anterior plate fixation screws at C6 and C7 appear to have been advanced into th e respective vertebral bodies on subsequent imaging. Anterior-superior tube advanced into the upper t horacic trachea and beyond the caudal margin of the field of imaging. IMPRESSION: 1. Fluoroscopy utilized during placement of and instrumented C5-C7 posterior spinal fusion and likely revision of an earlier instrumented C5-C7 anterior spinal fusion. See procedure note for further det ail. Reviewed, dictated and finalized at location A. TROTYPE SERVICER IMPRESSION: 1. Fluoroscopy utilized during placement of and instrumented C5-C7 posterior sp inal fusion and likely revision of an earlier instrumented C5-C7 anterior spina l fusion. See procedure note for further detail.
[2024-04-03 06:58] LABS: Glucose Point of Care 251 mg/dl (65-105)
--- NOTE | 2024-04-03 07:09 | P.PNAN_ITS ---
Anes - Initial Pre Proc Eval Procedure: Operation Date: 04/03/24 07:30 Proposed Procedures p Posterior Cervical Arthrodesis C5-7, - Liset Lopez MD s Revision Anterior Cervical Decompression and Fusion C5-7 - Liset Lopez MD Date/Time: 04/03/24 07:09 Surgeon: Liset Lopez MD Pre Op Diagnosis: pseudoarthrosis of cervical spine Patient Data Age: 63 Gender: M Height: 1.75 m Weight: 77.3 kg Allergies Allergy/AdvReac Type Severity Reaction Status Date / Time liraglutide [From Victoza] Allergy stomach Verified 03/22/24 13:02 cramps hydrocodone [From Vicodin] AdvReac Severe Jittery Verified 03/22/24 13:02 Home Medications Medication Instructions Recorded Confirmed Type amlodipine 10 mg tablet 10 mg PO DAILY 04/12/23 03/22/24 History losartan 50 mg tablet 50 mg PO DAILY 04/12/23 03/22/24 History omeprazole 20 mg capsule,delayed 20 mg PO DAILY 04/12/23 03/22/24 History release pregabalin 100 mg capsule 100 mg PO BID 04/12/23 03/22/24 History cyanocobalamin (vitamin B-12) 1,000 mcg subcut ONCE 08/14/23 03/22/24 History 1,000 mcg/mL injection kit ergocalciferol (vitamin D2) 1,250 1,250 mcg PO WEEKLY 08/14/23 03/22/24 History mcg (50,000 unit) capsule (Vitamin D2) cyclobenzaprine 10 mg tablet 10 mg PO TID PRN muscle spasm #30 08/21/23 03/22/24 Rx tabs evolocumab 140 mg/mL subcutaneous 140 mg subcut .biweekly 09/13/23 03/22/24 History pen injector (Repatha SureClick) empagliflozin 25 mg tablet 25 mg PO DAILY 03/22/24 03/22/24 History (Jardiance) semaglutide 3 mg tablet (Rybelsus) 3 mg PO DAILY 03/22/24 03/22/24 History Laboratory Tests 04/03/24 06:56 POC Capillary Glucose 251 H mg/dl (65-105) Patient hx anesthesia problems: none Family hx anesthesia problems: none Results Review: All pre-operative results and documents have been reviewed as part of the pre- operative evaluation. [facility] Family History Family History Father Diabetes mellitus Mother Cerebrovascular accident Social History Social History Smoking packs per day: 1 Smoking cigarettes per day: 20.0 Years smoked: 30 Smoking pack-years: 30.00 Smoking status: Former smoker Tobacco type: cigarettes Smoking end date: 12/31/23 Alcohol intake: never Substance use: current Substance use type: marijuana Other substance usage details: Once or twice a week for pain. Last use: 08/23/2023 Do You Feel Safe in your Home?: Yes Lack of Transportation: No Lack of Food: Never True Current Housing: Decline to Answer Concerned About Future Housing: No Difficulty Paying Gas/Electric Bills: Decline to Answer Difficulty Paying for Meds: No Currently Unemployed: Decline to Answer Education: High School Diploma/GED Difficulty w/ Childcare or Family Care: No Living arrangements: with family Spiritual care concerns: No Anes - Eval Final PreProcedure Day of Procedure 04/03/24 07:09 Patient weight: overweight Heart: regular rate and rhythm Lungs: clear to auscultation Airway: Mallampati scale class II and special considerations (Edentulous. ) poor extension Neurological: alert and oriented Last oral intake: >/= 8 hours ASA classification: III Emergent: no Anesthetic plan: proceed Anesthesia type and monitoring: general ETT and standard monitoring Results Review: All pre-operative results and documents have been reviewed as part of the pre- operative evaluation. HTN, pt now quit smoking 3 months ago. FSBS 251 this am. Informed Consent: The patient's anesthetic plan and its attendant risks and benefits were discussed with the patient/family/POA. Questions were solicited and answers provided to the satisfaction of the patient/family/POA.
--- NOTE | 2024-04-03 07:25 | WPDHPUPDATE1 ---
History and Physical Update Update Date/Time: 04/03/24 07:25 History and Physical has been reviewed, including an updated exam of the patient. There are NO changes in the patient's condition. Risks, benefits, and alternatives have been discussed and questions answered. Patient agrees to proceed with procedure.
--- NOTE | 2024-04-03 07:26 | P.HP_ITS ---
H&P: HPI History of Present Illness Date/Time: 04/03/24 07:26 Chief Complaint: neck pain Narrative: Mr. Nguyen is a 63-year-old male with history of ACDF C5-7 in July for cervical radiculopathy who did well until a few weeks ago when he started having recurrent neck pain and paresthesias in the 4th/5th fingers. He denies any fall or other inciting event. He sometimes notices a lump in his throat when swal lowing. He states he is not smoking. He has been wearing the [place] cervical collar which he finds helpful for his pain. Unfortunately, as part of his pre-op lab workup, we discovered his A1c returned at 9.5%. His PCP is having him restart Ozempic after surgery. Review of Systems Review of Systems: All systems reviewed & are unremarkable except as noted in HPI and below PMFSH Family History Family History Father Diabetes mellitus Mother Cerebrovascular accident Social History Social History Smoking packs per day: 1 Smoking cigarettes per day: 20.0 Years smoked: 30 Smoking pack-years: 30.00 Smoking status: Former smoker Tobacco type: cigarettes Smoking end date: 12/31/23 Alcohol intake: never Substance use: current Substance use type: marijuana Other substance usage details: Once or twice a week for pain. Last use: 08/23/2023 Do You Feel Safe in your Home?: Yes Lack of Transportation: No Lack of Food: Never True Current Housing: Decline to Answer Concerned About Future Housing: No Difficulty Paying Gas/Electric Bills: Decline to Answer Difficulty Paying for Meds: No Currently Unemployed: Decline to Answer Education: High School Diploma/GED Difficulty w/ Childcare or Family Care: No Living arrangements: with family Spiritual care concerns: No Meds Home Medications and Allergies Home Medications Medication Instructions Recorded Confirmed Type amlodipine 10 mg tablet 10 mg PO DAILY 04/12/23 03/22/24 History losartan 50 mg tablet 50 mg PO DAILY 04/12/23 03/22/24 History omeprazole 20 mg capsule,delayed 20 mg PO DAILY 04/12/23 03/22/24 History release pregabalin 100 mg capsule 100 mg PO BID 04/12/23 03/22/24 History cyanocobalamin (vitamin B-12) 1,000 mcg subcut ONCE 08/14/23 03/22/24 History 1,000 mcg/mL injection kit ergocalciferol (vitamin D2) 1,250 1,250 mcg PO WEEKLY 08/14/23 03/22/24 History mcg (50,000 unit) capsule (Vitamin D2) cyclobenzaprine 10 mg tablet 10 mg PO TID PRN muscle spasm #30 08/21/23 03/22/24 Rx tabs evolocumab 140 mg/mL subcutaneous 140 mg subcut .biweekly 09/13/23 03/22/24 History pen injector (Repatha SureClick) empagliflozin 25 mg tablet 25 mg PO DAILY 03/22/24 03/22/24 History (Jardiance) semaglutide 3 mg tablet (Rybelsus) 3 mg PO DAILY 03/22/24 03/22/24 History Allergies Allergy/AdvReac Type Severity Reaction Status Date / Time liraglutide [From Victoza] Allergy stomach Verified 03/22/24 13:02 cramps hydrocodone [From Vicodin] AdvReac Severe Jittery Verified 03/22/24 13:02 Assessment and Plan Assessment and plan (1) Pseudoarthrosis of cervical spine: Code(s): S12.9XXA - Fracture of neck, unspecified, initial encounter Status: Acute (2) Hardware failure of anterior column of spine: Code(s): T84.216A - Breakdown (mechanical) of internal fixation device of vertebrae, initial encounter Status: Acute Plan Mr. Nguyen is a 63-year-old male with history of ACDF C5-7 in July who has postoperative x-rays showing that the plate has backed out. He unfortunately started smoking again shortly after surgery. He also has had some recurrent paresthesias in the left 4th/5th fingers. He now has quit smoking. We are planning for PCDF C5-7 followed by revision ACDF C5-7
[2024-04-03] MEDS: INSULIN HUMAN REGULAR (*BKC) 100 UNITS/ML SUB-Q (07:27)
[2024-04-03] MEDS: LACTATED RINGERS 1,000 ML 30 ML IV CONT ×2 (07:30→12:43)
[2024-04-03] MEDS: ceFAZolin 2 GM/D5W 50 ML 2 GM/50 ML BAG IVPB ×2 (08:15→17:14)
[2024-04-03] MEDS: BUPIVACAINE/EPINEPHRINE 0.5% 50 ML VIAL 20 ML INFILTRATE (09:12)
[2024-04-03 10:57] LABS: Glucose Point of Care 243 mg/dl (65-105)
[2024-04-03] MEDS: ceFAZolin SODIUM 1 GM VIAL 2 GM (11:52)
[2024-04-03] MEDS: LACTATED RINGERS 1,000 ML 125 ML IV CONT (12:43)
[2024-04-03] MEDS: fentaNYL CITRATE INJ (*CRX) 100 MCG/2 ML VIAL 25 MCG IV PUSH ×8 (12:52→13:34)
[2024-04-03 13:00] LABS: Glucose Point of Care 310 mg/dl (65-105)
[2024-04-03 13:00] LABS: Glucose Point of Care 314 mg/dl (65-105)
[2024-04-03] MEDS: INSULIN HUMAN REGULAR (*BKC) 100 UNITS/ML 10 UNITS SUB-Q (13:03)
--- NOTE | 2024-04-03 13:04 | PM.OP ---
Procedure Note - Brief Procedure Note - Brief Date of procedure: 04/03/24 pseudoarthrosis of cervical spine Post-op diagnosis: Same Procedure performed: 1. Posterior cervical arthrodesis C5-6, C6-7 2. Revision of anterior cervical fusion C5-6, C6-7 3. Use of c-arm Surgeon: Liset Lopez MD Anesthesia: GETA Description of procedure: First portion included posterior cervical fusion C5-7. Second portion involved revising anterior cervical plate. Estimated blood loss (mL): 100 Drains: Yes Packing: No Pathology: None sent Complications: None Condition: Stable Disposition: PACU
[2024-04-03] MEDS: HYDROmorphone HCL INJ (*CRX) 1 MG/ML SYR 0.25 MG IV PUSH ×4 (13:39→15:10)
--- NOTE | 2024-04-03 13:53 | W.PM.PROC2 ---
Procedure Note - Detailed Date of Procedure 04/03/24 Pre-op Diagnosis pseudoarthrosis of cervical spine Post-op Diagnosis Same Procedure Performed 1. C5, C6, and C7 lateral mass instrumentation 2. C5-7 posterior cervical arthrodesis 3. Revision of anterior cervical plate and screws 4. Use of fluoroscopy Surgeon Liset Lopez MD Family And Divorce Legal Assistant Emmanuel Clemons Anesthesia General Description of Procedure The patient was taken to the operating room. General anesthesia was induced, and gomez catheter was placed. Ramirez pins were placed, and the patient was turned prone onto the OR table. The shoulders were taped down to better expose the neck. Hair on the base of the skull was clipped. The incision was planned with the assistance of fluoroscopy. Perioperative antibiotics were given. The surgical site was prepped and draped in usual sterile fashion. Time out was performed. Local anesthetic was injected into the planned incision. A midline posterior cervical incision was made with a 10-blade scalpel. The soft tissue was dissected to the spinous processes with the bovie. The laminae were exposed with the bovie as well. A self-retaining retractor was placed, and the C-arm was used to verify the correct level. Software Technical Lead holes were created in the C5, C6, and C7 lateral masses on the right side. The hand drill was drilled to a depth of 12mm. The holes were palpated and then deepened to 14mm. The 3.0 tap was passed to a depth of 14mm as well. The holes were again palpated to confirm lack of breech of the bone. 14mm screws were placed at each level. The bone was decorticated with the drill. A 40mm edenilson was placed on the right side and secured with set screws. This process was repeated on the left side. Software Technical Lead holes were created in the C5, C6, and C7 lateral masses on the left side. The hand drill was drilled to a depth of 12mm. The holes were palpated and then deepened to 14mm. The 3.0 tap was passed to a depth of 14mm as well. The holes were again palpated to confirm lack of breech of the bone. At C5 on the left, a 12mm screw was placed. 14mm screws were placed at C6 and C7. The bone was decorticated with the drill. A 50mm edenilson was placed on the left side and secured with set screws. The laminae and facets were decorticated, and Magnetos allograft was placed around the screws. Hemostasis was achieved with the bipolar. A hemovac drain was placed in the epidural space and tunneled inferiorly. The surgical site was copiously irrigated. The muscles were approximated with 0 vicryl. The fascia was closed with 0 vicryl as well. The deep dermis was closed with 2-0 vicryl, and the superficial dermis was closed with 3-0 vicryl. The skin was closed with running 3-0 nylon. Sterile dressings were placed. ? ? The patient was then returned to the supine position on the stretcher. The Ramirez was removed, and the patient was transferred back to the OR table in the supine position. A gel donut was placed under the head, and a shoulder roll was placed under the shoulders. The shoulders were taped down. Pressure points were appropriately padded, and compression devices were placed on the patient's calves. The appropriate level was confirmed with the C-arm XR imaging. The patient was prepped and draped in usual sterile fashion. Local anesthesia was injected into the previously-used incision site. Incision was made with a 10-blade scalpel. The subcutaneous tissue was undermined above the platysma with the Metzenbaum scissors. The platysma was sharply opened horizontally. Bleeding was controlled with the bipolar. The avascular plane to the spine was dissected sharply. I-Factor was noted along the tract to the spine under the platysma. Great care was taken in working through scar tissue and elevating the soft tissue from the anterior plate. The plate was visualized and exposed with the bovie. The superior portion of the plate was not fully exposed to limit the amount of scar tissue that had to be elevated. The locking mechanism in the plate was released, and the screws bilaterally in C6 and C7 were removed. I gradually removed soft tissue that was filling the space between the plate and the anterior border of the spine, using the bovie, currettes, and a micropituitary. Eventually, we were able to sink the plate back along the border of the spine. 16mm rescue screws were placed bilaterally at C7. One 16mm rescue screw and one 14mm rescue screw were placed at C6. We took many xrays to be able to visualize the hardware which was difficult due to the location at C7 in particular. After multiple xrays with fluoroscopy as well as with a flat plate, we concluded that the positioning of the anterior plate was significantly improved. The screws were locked into place. Palpation around the plate revealed minimal space between the plate and the anterior border of the spine. The surgical cavity was copiously irrigated; appropriate hemostasis was verified; and there was no evidence of dural tear/CSF leak. The platysma was closed with interrupted 3-0 Vicryl, followed by interrupted 3-0 Vicryl for the dermis, and 4-0 running subcuticular monocryl for the skin. Dermabond was placed. The patient was extubated, transferred to the bed, and taken to the PACU without incident. Billing codes: 96000, 19994, 00505, 17231 Estimated Blood Loss 100 Urine Output 800 Drains Yes Packing No Pathology None sent Complications None Condition Stable Disposition PACU [facility] Billing Surgery - Charge Forward: Surgery Billing
[2024-04-03 13:59] LABS: Glucose Point of Care 310 mg/dl (65-105)
--- NOTE | 2024-04-03 15:37 | ADMGEN ---
This patient, Iain Nguyen, was admitted to Medical Room 343-01. Patient/family oriented to hospital policies and general routines including ID bracelet, bed and alarms, visiting hours, pain management, procedures, bathroom and other care routines, personal items, smoking policy, room service/diet, and visiting hours. Information on how to activate the Rapid Response Team has been discussed. Patient/Family are encouraged to report perceived risks to care and to ask questions if they do not understand what they are told or what they should do.
[2024-04-03 16:47] LABS: Glucose Point of Care 261 mg/dl (65-105)
[2024-04-03] MEDS: ACETAMINOPHEN 500 MG TABLET 1000 MG PO ×2 (17:04→20:50)
[2024-04-03] MEDS: oxyCODONE HCL (*CRX) 5 MG TAB IR PO (17:04)
[2024-04-03] MEDS: INSULIN ASPART (*BKC) 100 UNITS/ML SUB-Q (17:05)
[2024-04-03] MEDS: SODIUM CHLORIDE 0.9% IV 1,000 ML 100 ML IV CONT (17:06)
[2024-04-03] MEDS: PREGABALIN (*CRX) 50 MG CAPSULE 100 MG PO (17:14)
[2024-04-03 19:53] LABS: Glucose Point of Care 282 mg/dl (65-105)
[2024-04-03] MEDS: DOCUSATE SODIUM 100 MG CAPSULE PO (20:50)
[2024-04-03] MEDS: CYCLOBENZAPRINE HCL 10 MG TABLET PO (20:50)
[2024-04-03] MEDS: INSULIN ASPART (*BKC) 100 UNITS/ML 6 UNITS SUB-Q (20:51)
[2024-04-04] MEDS: ceFAZolin 2 GM/D5W 50 ML 2 GM/50 ML BAG IVPB ×2 (01:48→08:53)
--- NOTE | 2024-04-04 03:33 | P.CONIM_ITS ---
Assessment and Plan Assessment and plan (1) Pseudoarthrosis of cervical spine: Code(s): S12.9XXA - Fracture of neck, unspecified, initial encounter Status: Acute Assessment and Plan: Posterior hardware placement and anterior revision of failed hardware on 04/02/[address] Lopez (2) Hardware failure of anterior column of spine: Code(s): T84.216A - Breakdown (mechanical) of internal fixation device of vertebrae, initial encounter Status: Acute Assessment and Plan: See above (3) Type 2 diabetes mellitus with hyperglycemia: Code(s): E11.65 - Type 2 diabetes mellitus with hyperglycemia Status: Acute Assessment and Plan: -Hemoglobin A1c 9.5 on pre-op labs -Hospitalist consulted for help managing sugars -ACHS fingerstick glucose with high dose SSI -Continue Jardiance and Rybelsus as well -Consider scheduled mealtime and/or Lantus if additional control is needed (4) HTN (hypertension): Code(s): I10 - Essential (primary) hypertension Status: Acute Assessment and Plan: -Blood pressures reviewed, mildly elevated -Continue home medications -Adequate pain control HPI Date of Consult Consult date: 04/04/24 Requesting Physician: Liset Lopez MD Primary Care Provider: MARYA VENEGAS, Consult Narrative Reason for consult: hyperglycemia Narrative: Iain Nguyen is a 63 year old male admitted for revision of cervical hardware due to failed hardware on prior surgery. On preop labs, patient noted to have elevated A1c of 9.5. Patient currently on Jardiance and Rybelsus. Blood sugar noted to be quite elevated after surgery so he received a few doses of insulin in recovery room prior to admission to the floor. Dr. Lopez with Neurosurgery restarted home medications and placed patient on high dose sliding scale with diabetic diet. Hospitalist service was asked to consult to help get blood sugar under better control. Patient also has a history of hypertension on losartan and amlodipine. Patient reports he anticipates going home today and following with primary care provider to restart Ozempic for his diabetes. Review of Systems Review of Systems: All systems reviewed & are unremarkable except as noted in HPI and below PMFSH Past Medical History Medical History HTN (hypertension) Type 2 diabetes mellitus with hyperglycemia Family History Family History Father Diabetes mellitus Mother Cerebrovascular accident Social History Social History Smoking packs per day: 1 Smoking cigarettes per day: 20.0 Years smoked: 30 Smoking pack-years: 30.00 Smoking status: Former smoker Alcohol intake: never Substance use: current Substance use type: marijuana Other substance usage details: Once or twice a week for pain. Last use: 08/23/2023 Do You Feel Safe in your Home?: Yes Lack of Transportation: No Lack of Food: Never True Current Housing: Decline to Answer Concerned About Future Housing: No Difficulty Paying Gas/Electric Bills: Decline to Answer Difficulty Paying for Meds: No Currently Unemployed: Decline to Answer Education: High School Diploma/GED Difficulty w/ Childcare or Family Care: No Living arrangements: with family Spiritual care concerns: No Meds Home Medications and Allergies Home Medications Medication Instructions Recorded Confirmed Type amlodipine 10 mg tablet 10 mg PO DAILY 04/12/23 03/22/24 History losartan 50 mg tablet 50 mg PO DAILY 04/12/23 03/22/24 History omeprazole 20 mg capsule,delayed 20 mg PO DAILY 04/12/23 03/22/24 History release pregabalin 100 mg capsule 100 mg PO BID 04/12/23 03/22/24 History cyanocobalamin (vitamin B-12) 1,000 mcg subcut ONCE 08/14/23 03/22/24 History 1,000 mcg/mL injection kit ergocalciferol (vitamin D2) 1,250 1,250 mcg PO WEEKLY 08/14/23 03/22/24 History mcg (50,000 unit) capsule (Vitamin D2) cyclobenzaprine 10 mg tablet 10 mg PO TID PRN muscle spasm #30 08/21/23 03/22/24 Rx tabs evolocumab 140 mg/mL subcutaneous 140 mg subcut .biweekly 09/13/23 03/22/24 History pen injector (Sophia Marroquin) empagliflozin 25 mg tablet 25 mg PO DAILY 03/22/24 03/22/24 History (Jardiance) semaglutide 3 mg tablet (Rybelsus) 3 mg PO DAILY 03/22/24 03/22/24 History Allergies Allergy/AdvReac Type Severity Reaction Status Date / Time liraglutide [From Victoza] Allergy stomach Verified 03/22/24 13:02 cramps hydrocodone [From Vicodin] AdvReac Severe Jittery Verified 03/22/24 13:02 semaglutide [From Wegovy] AdvReac Stomach Verified 04/03/24 07:44 Cramps Vital Signs Vital Signs - 24 hr 04/03/24 06:36 04/03/24 12:43 04/03/24 13:00 Temperature 36.6 C 36.4 C L Pulse Rate 84 88 94 Respiratory Rate 16 20 12 Blood Pressure 160/87 H 161/80 H 176/88 H Pulse Oximetry 99 100 100 Oxygen Delivery Room Air Simple Face Mask Simple Face Mask Oxygen Flow Rate 8 8 04/03/24 13:15 04/03/24 13:24 04/03/24 13:30 Temperature Pulse Rate 94 98 Respiratory Rate 14 14 Blood Pressure 176/88 H 187/91 H Pulse Oximetry 100 94 99 Oxygen Delivery Room Air Nasal Cannula Nasal Cannula Oxygen Flow Rate 2 2 04/03/24 13:45 04/03/24 14:00 04/03/24 14:15 Temperature Pulse Rate 104 H 96 99 Respiratory Rate 14 15 12 Blood Pressure 177/87 H 165/75 H 162/71 H Pulse Oximetry 99 99 99 Oxygen Delivery Nasal Cannula Nasal Cannula Nasal Cannula Oxygen Flow Rate 2 2 2 04/03/24 14:30 04/03/24 14:45 04/03/24 15:00 Temperature 36.6 C Pulse Rate 97 104 H 101 H Respiratory Rate 13 12 16 Blood Pressure 151/88 H 153/78 H 158/77 H Pulse Oximetry 98 99 98 Oxygen Delivery Nasal Cannula Nasal Cannula Nasal Cannula Oxygen Flow Rate 2 2 2 04/03/24 15:30 04/03/24 15:45 04/03/24 17:25 Temperature 36.3 C L 36.6 C Pulse Rate 101 H 99 Respiratory Rate 16 16 Blood Pressure 178/88 H 176/85 H Pulse Oximetry 99 98 Oxygen Delivery Room Air Oxygen Flow Rate 04/03/24 17:15 04/03/24 22:00 04/03/24 22:16 Temperature 36.6 C 37.0 C 36.6 C Pulse Rate 100 94 91 Respiratory Rate 16 20 20 Blood Pressure 180/82 H 177/96 H 168/92 H Pulse Oximetry 99 96 98 Oxygen Delivery Oxygen Flow Rate 04/03/24 20:00 Temperature Pulse Rate Respiratory Rate Blood Pressure Pulse Oximetry Oxygen Delivery Room Air Oxygen Flow Rate Exam Narrative: GENERAL: Well-appearing, well-nourished, and in no acute distress. HEAD: Normocephalic, atraumatic. ENT:? Mucous membranes moist. Wound vac on posterior neck, no significant bleeding from surgical sites CHEST: Clear to auscultation.? No respiratory distress. HEART: Regular rate and rhythm. ? Normal peripheral pulses. ABDOMEN: Soft, nontender, nondistended. EXTREMITIES: Normal range of motion. No peripheral edema. SKIN: Warm dry normal color NEURO: Alert and oriented x3. PSYCH: Normal mood and affect Results Labs Labs: Ordered for AM labs Pulse Oximetry SpO2 results: 96-99% on room air Attestation: I personally reviewed and interpreted this pulse oximetry as follows: Interpretation: No need for supplemental oxygenation at this time Imaging Radiologist's impression: EXAMINATION: XR fluoroscopy no charge DATE: 04/03/2024 12:31 INDICATION: Posterior arthrodesis of C5-C7 and revision of C5 C7 anterior spinal fusion. TECHNIQUE: 8 fluoroscopic images and one lateral radiograph of the cervical spine were obtained during procedure performed by Dr. Lopez. Radiologist was not present for the imaging or procedure. The amount of fluoroscopy time used during this procedure was 0.5 minutes. Total DAP was 1.50 Gycm^2 COMPARISON: CT dated 01/22/2024 and radiographs dated 01/04/2024 FINDINGS: Images demonstrate placement of a new C5-C7 instrumented posterior spinal fusion with bilateral vertical edenilson and lateral mass screw fixation. Again seen are C5- C6 and C6-C7 discectomies with instrumented anterior spinal fusion with bilateral interbody fusion devices and anterior plate and screw fixation. On the initial fluoroscopic image of this appears unchanged from the prior radiographs with backing out of the caudal-most screws and elevation of the plate from the underlying anterior margin of the vertebral body. The anterior plate fixation screws at C6 and C7 appear to have been advanced into the respective vertebral bodies on subsequent imaging. Anterior-superior tube advanced into the upper thoracic trachea and beyond the caudal margin of the field of imaging. IMPRESSION: 1. Fluoroscopy utilized during placement of and instrumented C5-C7 posterior spinal fusion and likely revision of an earlier instrumented C5-C7 anterior spinal fusion. See procedure note for further detail. Reviewed, dictated and finalized at location A. [employer] Quality VTE Prophylaxis VTE prophylaxis: mechanical ordered If No VTE Prophylaxis Answer both mechanical and pharmacologic: Reason no pharmacologic proph: medical contraindication (Spinal surgery on 04/02/24--leave to Neurosurgery to decide if/when to use pharm proph) Hospitalist MIPS Advance Care Plan I have confirmed that the patient's Advanced Care Plan is present, code status is documented, or surrogate decision maker is listed in patient medical record.: Yes Medication Reconciliation I have utilized all available resources to obtain, update and review the patients current medications (includes all prescriptions, OTC, herbals, cannabis, and nutritional supplements).: Yes
[2024-04-04] MEDS: SODIUM CHLORIDE 0.9% IV 1,000 ML 30 ML IV CONT (04:12)
[2024-04-04] MEDS: ACETAMINOPHEN 500 MG TABLET 1000 MG PO ×2 (04:14→10:04)
[2024-04-04] MEDS: oxyCODONE HCL (*CRX) 5 MG TAB IR PO (05:26)
[2024-04-04 06:00] VITALS: BP 153/84; PULSE 102; RESP 18; TEMP 36.9; O2SAT 99
[2024-04-04 07:03] LABS: Basophils Absolute Auto 0.1 K/mm3 (0.0-0.1); Basophils Percent Auto 0.6 % (0.2-1.2); Eosinophils Absolute Auto 0.1 K/mm3 (0-0.3); Eosinophils Percent Auto 0.5 % (0-4.4); Hematocrit 47.3 % (42.0-52.0); Immature Granulocyte Absolute 0.05 K/mm3 (0.00-0.031); Immature Granulocyte Percent A 0.4 % (0-0.5); Lymphocytes Absolute Auto 1.97 K/mm3 (0.9-3.2); Lymphocytes Percent Auto 14.9 % (18.3-44.2); Mean Corpuscular HGB Conc 33.8 g/dl (32-36); Mean Corpuscular Hemoglobin 29.2 pg (26-34); Mean Corpuscular Volume 86.3 fl (80-100); Mean Platelet Volume 9.6 fl (7.4-10.4); Monocytes Absolute Auto 1.1 K/mm3 (0.1-0.6); Monocytes Percent Auto 8.5 % (2.6-8.5); Neutrophils Percent Auto 75.1 % (45.5-73.1); Platelet Count Result 241 k/mm3 (150-375); Red Blood Count 5.48 M/mm3 (4.6-6.20); Red Cell Distribution Width 12.9 % (11.5-14.5); White Blood Count 13.3 K/mm3 (4.5-10.0)
[2024-04-04 07:10] LABS: Alanine Aminotransferase 20 U/L (6-50); Albumin Level 3.9 g/dL (3.5-5.1); Alkaline Phosphatase 107 U/L (38-126); Anion Gap 4 mmol/L (4-12); Aspartate Amino Transferase 30 U/L (17-59); Bilirubin,Total 0.7 mg/dL (0.2-1.3); Blood Urea Nitrogen 6 mg/dL (9-20); Calcium 8.7 mg/dL (8.4-10.2); Carbon Dioxide 29 mmol/L (22-30); Chloride 101 mmol/L (98-107); Estimated CRCL calculation 128 ml/min; Estimated Glomerular Filt Rate > 60; Glucose 199 mg/dL (65-110); Magnesium 1.8 mg/dL (1.6-2.3); Potassium 3.2 mmol/L (3.4-5.0); Sodium 134 mmol/L (137-145)
[2024-04-04] MEDS: oxyCODONE HCL (*CRX) 5 MG TAB IR 10 MG PO ×2 (08:51→12:59)
[2024-04-04 08:52] LABS: Glucose Point of Care 221 mg/dl (65-105)
[2024-04-04] MEDS: amLODIPine BESYLATE 10 MG TABLET PO (08:52)
[2024-04-04] MEDS: EMPAGLIFLOZIN 25 MG TABLET PO (08:52)
[2024-04-04] MEDS: PANTOPRAZOLE 40 MG TABLET PO (08:52)
[2024-04-04] MEDS: PREGABALIN (*CRX) 50 MG CAPSULE 100 MG PO (08:52)
[2024-04-04] MEDS: LOSARTAN POTASSIUM 50 MG TABLET PO (08:52)
[2024-04-04] MEDS: POTASSIUM CHLORIDE 20 MEQ ER TABLET 40 MEQ PO (08:53)
[2024-04-04] MEDS: DOCUSATE SODIUM 100 MG CAPSULE PO (08:53)
[2024-04-04] MEDS: INSULIN ASPART (*BKC) 100 UNITS/ML SUB-Q (10:04)
--- NOTE | 2024-04-04 11:12 | P.PNIM_ITS ---
Progress Note: A&P Assessment and Plan (1) Status post cervical arthrodesis: Code(s): Z98.1 - Arthrodesis status Status: Acute Assessment and Plan: * Posterior hardware placement and anterior revision of failed hardware on 04/03/[address] Lopez (2) Hardware failure of anterior column of spine: Code(s): T84.216A - Breakdown (mechanical) of internal fixation device of vertebrae, initial encounter Status: Acute Assessment and Plan: * See above (3) Type 2 diabetes mellitus with hyperglycemia: Code(s): E11.65 - Type 2 diabetes mellitus with hyperglycemia Status: Acute Assessment and Plan: * Hemoglobin A1c 9.5 on pre-op labs * Hospitalist consulted for help managing sugars * ACHS fingerstick glucose with high dose SSI * Continue Jardiance and Rybelsus as well * Consider scheduled mealtime and/or Lantus if additional control is needed (4) HTN (hypertension): Code(s): I10 - Essential (primary) hypertension Status: Acute Assessment and Plan: * Blood pressure 150/80 * Continue home medications. * Adequate pain control Subjective Date/time seen: 04/04/24 11:12 Interval history: Patient reports pain in his neck is a 7 , constant, and aching. Patient reports improved feeling in his left 4th and 5th digit of hand. Patient denies shortness of breath, headache, dizziness, nausea, or vomiting. Patient reports doing well with physical therapy. Review of Systems Review of Systems: All systems reviewed & are unremarkable except as noted in HPI and below Exam Const: General: no acute distress and uncomfortable Resp: Effort & Inspection: normal respiratory effort Auscultation: clear to auscultation bilaterally Cardio: Rate: regular rate Rhythm: regular rhythm GI: GI Palp: Yes Soft to palpation Auscultation: normal bowel sounds Skin: Other: Dressing to back of neck C/D/I. Glue to front of neck with no drainage. Neuro: Speech: normal speech Extrem: General: no pedal edema Psych: Mental Status: mental status grossly normal Affect: normal affect Objective Data Vital Signs Vital Signs: Vital Signs - 24 hr 04/03/24 12:43 04/03/24 13:00 04/03/24 13:15 Temperature 97.5 F L Pulse Rate 88 94 94 Respiratory Rate 20 12 14 Blood Pressure 161/80 H 176/88 H 176/88 H Pulse Oximetry 100 100 100 Oxygen Delivery Simple Face Mask Simple Face Mask Room Air Oxygen Flow Rate 8 8 04/03/24 13:24 04/03/24 13:30 04/03/24 13:45 Temperature Pulse Rate 98 104 H Respiratory Rate 14 14 Blood Pressure 187/91 H 177/87 H Pulse Oximetry 94 99 99 Oxygen Delivery Nasal Cannula Nasal Cannula Nasal Cannula Oxygen Flow Rate 2 2 2 04/03/24 14:00 04/03/24 14:15 04/03/24 14:30 Temperature Pulse Rate 96 99 97 Respiratory Rate 15 12 13 Blood Pressure 165/75 H 162/71 H 151/88 H Pulse Oximetry 99 99 98 Oxygen Delivery Nasal Cannula Nasal Cannula Nasal Cannula Oxygen Flow Rate 2 2 2 04/03/24 14:45 04/03/24 15:00 04/03/24 15:30 Temperature 97.9 F 97.4 F L Pulse Rate 104 H 101 H 101 H Respiratory Rate 12 16 16 Blood Pressure 153/78 H 158/77 H 178/88 H Pulse Oximetry 99 98 99 Oxygen Delivery Nasal Cannula Nasal Cannula Oxygen Flow Rate 2 2 04/03/24 15:45 04/03/24 17:25 04/03/24 17:15 Temperature 97.9 F 97.8 F Pulse Rate 99 100 Respiratory Rate 16 16 Blood Pressure 176/85 H 180/82 H Pulse Oximetry 98 99 Oxygen Delivery Room Air Oxygen Flow Rate 04/03/24 22:00 04/03/24 22:16 04/03/24 20:00 Temperature 98.6 F 98 F Pulse Rate 94 91 Respiratory Rate 20 20 Blood Pressure 177/96 H 168/92 H Pulse Oximetry 96 98 Oxygen Delivery Room Air Oxygen Flow Rate 04/04/24 06:00 04/04/24 08:00 04/04/24 08:59 Temperature 98.4 F Pulse Rate 102 H Respiratory Rate 18 Blood Pressure 153/84 H Pulse Oximetry 99 Oxygen Delivery Room Air Room Air Oxygen Flow Rate Intake/Output Intake/Output: Intake & Output 04/01/24 04/02/24 04/03/24 04/04/24 23:59 23:59 23:59 23:59 Intake Total 774 2570 Output Total 2465 Balance -6721 2570 Meds/Results Medications: Active Medications Generic Name Dose Route Start Last Admin Trade Name Freq PRN Reason Stop Dose Admin Acetaminophen 1,000 mg 04/03/24 16:00 04/04/24 10:04 Acetaminophen 500 Mg Tablet PO 1,000 mg Q6H MARILYN Administration Al Hydrox/Mg Hydrox/Simethicone 20 ml 04/03/24 12:49 Mag Hydrox/Al Hydrox/Simeth 30 Ml Udc PO Q4H PRN Indigestion/Heartburn Amlodipine Besylate 10 mg 04/04/24 09:00 04/04/24 08:52 Amlodipine Besylate 10 Mg Tablet PO 10 mg DAILY MARILYN Administration Bisacodyl 10 mg 04/03/24 12:49 Bisacodyl 10 Mg Suppository RECTAL DAILY PRN Constipation Cyclobenzaprine HCl 10 mg 04/03/24 12:49 04/03/24 20:50 Cyclobenzaprine Hcl 10 Mg Tablet PO 10 mg TID PRN Administration Muscle Spasms Dextrose 12.5 gm 04/03/24 12:59 Dextrose 50% 25 Gm/50 Ml Syringe IV PUSH PRN PRN Hypoglycemia Protocol Docusate Sodium 100 mg 04/03/24 21:00 04/04/24 08:53 Docusate Sodium 100 Mg Capsule PO 100 mg Q12HR MARILYN Administration Empagliflozin 25 mg 04/04/24 09:00 04/04/24 08:52 Empagliflozin 25 Mg Tablet PO 25 mg DAILY MARILYN Administration Glucagon 1 mg 04/03/24 12:59 Glucagon For Inj 1 Mg Vial IM PRN PRN Hypoglycemia Protocol Glucose 15 gm 04/03/24 12:59 Glucose Oral Gel 15 Gm Of Glucse In 37.5 Gm Tube PO PRN PRN Hypoglycemia Protocol Sodium Chloride 1,000 mls @ 100 mls/hr 04/03/24 12:50 04/04/24 04:12 Normal Saline Iv IV CONT 30 mls/hr .Q10H MARILYN Administration Dextrose 1,000 mls @ 100 mls/hr 04/03/24 12:59 Dextrose 5% 1,000 Ml IVPB PRN PRN Hypoglycemia Protocol Cefazolin Sodium 2 gm in 50 mls @ 100 mls/hr 04/03/24 17:00 04/04/24 08:53 Ancef 2 Gm/D5w 50 Ml IVPB 100 mls/hr Q8H MARILYN Administration Insulin Aspart 4 - 8 units 04/03/24 17:00 04/04/24 10:04 Insulin Aspart (*Bkc) 100 Units/Ml SUB-Q 4 units TIDWM MARILYN Administration Protocol Losartan Potassium 50 mg 04/04/24 09:00 04/04/24 08:52 Losartan Potassium 50 Mg Tablet PO 50 mg DAILY MARILYN Administration Miscellaneous Information 1 each 04/04/24 00:01 04/04/24 08:55 Med Rec Order Clarification XX 05/04/24 00:00 Not Given [facility] Morphine Sulfate 2 mg 04/03/24 12:49 Morphine Sulfate (*Crx) 2 Mg/Ml Inj IV PUSH Q2H PRN Breakthrough Pain Non-Formulary Medication 3 mg 04/04/24 09:00 Semaglutide [Rybelsus] PO 05/04/24 08:59 DAILY MARILYN Ondansetron HCl 4 mg 04/03/24 12:49 Ondansetron Inj 4 Mg/2 Ml Vial IV PUSH Q8H PRN Nausea And Vomiting Oxycodone HCl 10 mg 04/03/24 12:49 04/04/24 08:51 Oxycodone Hcl (*Crx) 5 Mg Tab Ir PO 10 mg Q4H PRN Administration Pain Rated 7-10 Oxycodone HCl 5 mg 04/03/24 12:49 04/04/24 05:26 Oxycodone Hcl (*Crx) 5 Mg Tab Ir PO 5 mg Q4H PRN Administration Pain Rated 4-6 Pantoprazole Sodium 40 mg 04/04/24 09:00 04/04/24 08:52 Pantoprazole 40 Mg Tablet PO 40 mg QAM MARILYN Administration Pregabalin 100 mg 04/03/24 17:00 04/04/24 08:52 Pregabalin (*Crx) 50 Mg Capsule PO 100 mg BID MARILYN Administration Senna/Docusate Sodium 1 tab 04/03/24 12:49 Senna/Docusate Sodium Tablet PO HS PRN Constipation Radiology Results: ITS Impressions Fluoroscopy 04/03/24 13:07 IMPRESSION: 1. Fluoroscopy utilized during placement of and instrumented C5-C7 posterior spinal fusion and likely revision of an earlier instrumented C5-C7 anterior spinal fusion. See procedure note for further detail. Labs Labs: Laboratory Results - last 24 hr 04/03/24 04/03/24 04/03/24 12:56 12:58 13:57 WBC RBC Hgb Hct MCV MCH MCHC RDW Plt Count MPV Immature Gran % (Auto) Neut % (Auto) Lymph % (Auto) [place] % (Auto) Eos % (Auto) Baso % (Auto) Lymph # (Auto) [place] # (Auto) Eos # (Auto) Baso # (Auto) Abs Immat Gran (auto) Absolute Neuts (auto) Absolute Nucleated RBC Nucleated RBC % Sodium Potassium Chloride Carbon Dioxide Anion Gap BUN Creatinine Estim Creat Clear Calc Estimated GFR Glucose POC Capillary Glucose 314 H 310 H 310 H Calcium Magnesium Total Bilirubin AST ALT Alkaline Phosphatase Total Protein Albumin 04/03/24 04/03/24 04/04/24 16:07 19:49 06:25 WBC 13.3 H RBC 5.48 Hgb 16.0 Hct 47.3 MCV 86.3 MCH 29.2 MCHC 33.8 RDW 12.9 Plt Count 241 MPV 9.6 Immature Gran % (Auto) 0.4 Neut % (Auto) 75.1 H Lymph % (Auto) 14.9 L [place] % (Auto) 8.5 Eos % (Auto) 0.5 Baso % (Auto) 0.6 Lymph # (Auto) 1.97 [place] # (Auto) 1.1 H Eos # (Auto) 0.1 Baso # (Auto) 0.1 Abs Immat Gran (auto) 0.05 H Absolute Neuts (auto) 10.0 H Absolute Nucleated RBC 0.000 Nucleated RBC % 0.0 Sodium 134 L Potassium 3.2 L Chloride 101 Carbon Dioxide 29 Anion Gap 4 BUN 6 L Creatinine 0.50 L Estim Creat Clear Calc 128 Estimated GFR > 60 Glucose 199 H POC Capillary Glucose 261 H 282 H Calcium 8.7 Magnesium 1.8 Total Bilirubin 0.7 AST 30 ALT 20 Alkaline Phosphatase 107 Total Protein 7.0 Albumin 3.9 04/04/24 08:23 WBC RBC Hgb Hct MCV MCH MCHC RDW Plt Count MPV Immature Gran % (Auto) Neut % (Auto) Lymph % (Auto) [place] % (Auto) Eos % (Auto) Baso % (Auto) Lymph # (Auto) [place] # (Auto) Eos # (Auto) Baso # (Auto) Abs Immat Gran (auto) Absolute Neuts (auto) Absolute Nucleated RBC Nucleated RBC % Sodium Potassium Chloride Carbon Dioxide Anion Gap BUN Creatinine Estim Creat Clear Calc Estimated GFR Glucose POC Capillary Glucose 221 H Calcium Magnesium Total Bilirubin AST ALT Alkaline Phosphatase Total Protein Albumin
[2024-04-04 11:34] LABS: Glucose Point of Care 158 mg/dl (65-105)
[2024-04-04 11:49] VITALS: BP 150/80; PULSE 101; RESP 16; TEMP 36.6; O2SAT 97
[2024-04-04] MEDS: CYCLOBENZAPRINE HCL 10 MG TABLET PO (13:02)
--- NOTE | 2024-04-04 13:14 | WPDNEUROSGPN ---
Progress Note: A&P Assessment and Plan (1) Pseudoarthrosis of cervical spine: Code(s): S12.9XXA - Fracture of neck, unspecified, initial encounter Status: Acute (2) Status post cervical arthrodesis: Code(s): Z98.1 - Arthrodesis status Status: Acute Plan -Remove hemovac drain -Discharge home today -He should wear the cervical collar at all times for the next 6 weeks -We again discussed the extreme importance of not smoking and of obtaining good blood sugar control -Follow up with me in clinic in 2 weeks for suture removal Subjective Date/time seen: 04/04/24 13:14 Interval history: Doing well today with tolerable pain. He has ambulated in halls and done stairs. He is swallowing without difficulty. The numbness in his left hand is going away. He has no other concerns today. Review of Systems Review of Systems: All systems reviewed & are unremarkable except as noted in HPI and below Exam Narrative: AOx4 full strength in upper extremities Sensation intact to light touch Anterior cervical incision c/d/i Dressing over posterior incision dry Objective Data Vital Signs Vital Signs: Vital Signs - 24 hr 04/03/24 13:15 04/03/24 13:24 04/03/24 13:30 Temperature Pulse Rate 94 98 Respiratory Rate 14 14 Blood Pressure 176/88 H 187/91 H Pulse Oximetry 100 94 99 Oxygen Delivery Room Air Nasal Cannula Nasal Cannula Oxygen Flow Rate 2 2 04/03/24 13:45 04/03/24 14:00 04/03/24 14:15 Temperature Pulse Rate 104 H 96 99 Respiratory Rate 14 15 12 Blood Pressure 177/87 H 165/75 H 162/71 H Pulse Oximetry 99 99 99 Oxygen Delivery Nasal Cannula Nasal Cannula Nasal Cannula Oxygen Flow Rate 2 2 2 04/03/24 14:30 04/03/24 14:45 04/03/24 15:00 Temperature 97.9 F Pulse Rate 97 104 H 101 H Respiratory Rate 13 12 16 Blood Pressure 151/88 H 153/78 H 158/77 H Pulse Oximetry 98 99 98 Oxygen Delivery Nasal Cannula Nasal Cannula Nasal Cannula Oxygen Flow Rate 2 2 2 04/03/24 15:30 04/03/24 15:45 04/03/24 17:25 Temperature 97.4 F L 97.9 F Pulse Rate 101 H 99 Respiratory Rate 16 16 Blood Pressure 178/88 H 176/85 H Pulse Oximetry 99 98 Oxygen Delivery Room Air Oxygen Flow Rate 04/03/24 17:15 04/03/24 22:00 04/03/24 22:16 Temperature 97.8 F 98.6 F 98 F Pulse Rate 100 94 91 Respiratory Rate 16 20 20 Blood Pressure 180/82 H 177/96 H 168/92 H Pulse Oximetry 99 96 98 Oxygen Delivery Oxygen Flow Rate 04/03/24 20:00 04/04/24 06:00 04/04/24 08:00 Temperature 98.4 F Pulse Rate 102 H Respiratory Rate 18 Blood Pressure 153/84 H Pulse Oximetry 99 Oxygen Delivery Room Air Room Air Oxygen Flow Rate 04/04/24 08:59 04/04/24 11:49 Temperature 97.8 F Pulse Rate 101 H Respiratory Rate 16 Blood Pressure 150/80 H Pulse Oximetry 97 Oxygen Delivery Room Air Oxygen Flow Rate Intake/Output Intake/Output: Intake & Output 04/01/24 04/02/24 04/03/24 04/04/24 23:59 23:59 23:59 23:59 Intake Total 774 2620 Output Total 2465 Balance -1691 2620 Meds/Results Medications: Active Medications Generic Name Dose Route Start Last Admin Trade Name Freq PRN Reason Stop Dose Admin Acetaminophen 1,000 mg 04/03/24 16:00 04/04/24 10:04 Acetaminophen 500 Mg Tablet PO 1,000 mg Q6H MARILYN Administration Al Hydrox/Mg Hydrox/Simethicone 20 ml 04/03/24 12:49 Mag Hydrox/Al Hydrox/Simeth 30 Ml Udc PO Q4H PRN Indigestion/Heartburn Amlodipine Besylate 10 mg 04/04/24 09:00 04/04/24 08:52 Amlodipine Besylate 10 Mg Tablet PO 10 mg DAILY MARILYN Administration Bisacodyl 10 mg 04/03/24 12:49 Bisacodyl 10 Mg Suppository RECTAL DAILY PRN Constipation Cyclobenzaprine HCl 10 mg 04/03/24 12:49 04/04/24 13:02 Cyclobenzaprine Hcl 10 Mg Tablet PO 10 mg TID PRN Administration Muscle Spasms Dextrose 12.5 gm 04/03/24 12:59 Dextrose 50% 25 Gm/50 Ml Syringe IV PUSH PRN PRN Hypoglycemia Protocol Docusate Sodium 100 mg 04/03/24 21:00 04/04/24 08:53 Docusate Sodium 100 Mg Capsule PO 100 mg Q12HR MARILYN Administration Empagliflozin 25 mg 04/04/24 09:00 04/04/24 08:52 Empagliflozin 25 Mg Tablet PO 25 mg DAILY MARILYN Administration Glucagon 1 mg 04/03/24 12:59 Glucagon For Inj 1 Mg Vial IM PRN PRN Hypoglycemia Protocol Glucose 15 gm 04/03/24 12:59 Glucose Oral Gel 15 Gm Of Glucse In 37.5 Gm Tube PO PRN PRN Hypoglycemia Protocol Sodium Chloride 1,000 mls @ 100 mls/hr 04/03/24 12:50 04/04/24 11:42 Normal Saline Iv IV CONT Not Given .Q10H MARILYN Dextrose 1,000 mls @ 100 mls/hr 04/03/24 12:59 Dextrose 5% 1,000 Ml IVPB PRN PRN Hypoglycemia Protocol Cefazolin Sodium 2 gm in 50 mls @ 100 mls/hr 04/03/24 17:00 04/04/24 09:23 Ancef 2 Gm/D5w 50 Ml IVPB Infused Q8H [facility] Infusion Insulin Aspart 4 - 8 units 04/03/24 17:00 04/04/24 13:01 Insulin Aspart (*Bkc) 100 Units/Ml SUB-Q Not Given TIDWM [facility] Protocol Losartan Potassium 50 mg 04/04/24 09:00 04/04/24 08:52 Losartan Potassium 50 Mg Tablet PO 50 mg DAILY MARILYN Administration Miscellaneous Information 1 each 04/04/24 00:01 04/04/24 08:55 Med Rec Order Clarification XX 05/04/24 00:00 Not Given CLARIFY [facility] Morphine Sulfate 2 mg 04/03/24 12:49 Morphine Sulfate (*Crx) 2 Mg/Ml Inj IV PUSH Q2H PRN Breakthrough Pain Non-Formulary Medication 3 mg 04/04/24 09:00 Semaglutide [Rybelsus] PO 05/04/24 08:59 DAILY [facility] Ondansetron HCl 4 mg 04/03/24 12:49 Ondansetron Inj 4 Mg/2 Ml Vial IV PUSH Q8H PRN Nausea And Vomiting Oxycodone HCl 10 mg 04/03/24 12:49 04/04/24 12:59 Oxycodone Hcl (*Crx) 5 Mg Tab Ir PO 10 mg Q4H PRN Administration Pain Rated 7-10 Oxycodone HCl 5 mg 04/03/24 12:49 04/04/24 05:26 Oxycodone Hcl (*Crx) 5 Mg Tab Ir PO 5 mg Q4H PRN Administration Pain Rated 4-6 Pantoprazole Sodium 40 mg 04/04/24 09:00 04/04/24 08:52 Pantoprazole 40 Mg Tablet PO 40 mg QAM MARILYN Administration Pregabalin 100 mg 04/03/24 17:00 04/04/24 08:52 Pregabalin (*Crx) 50 Mg Capsule PO 100 mg BID MARILYN Administration Senna/Docusate Sodium 1 tab 04/03/24 12:49 Senna/Docusate Sodium Tablet PO HS PRN Constipation Radiology Results: ITS Impressions Fluoroscopy 04/03/24 13:07 IMPRESSION: 1. Fluoroscopy utilized during placement of and instrumented C5-C7 posterior spinal fusion and likely revision of an earlier instrumented C5-C7 anterior spinal fusion. See procedure note for further detail. Labs Labs: Laboratory Results - last 24 hr 04/03/24 04/03/24 04/03/24 13:57 16:07 19:49 WBC RBC Hgb Hct MCV MCH MCHC RDW Plt Count MPV Immature Gran % (Auto) Neut % (Auto) Lymph % (Auto) [place] % (Auto) Eos % (Auto) Baso % (Auto) Lymph # (Auto) [place] # (Auto) Eos # (Auto) Baso # (Auto) Abs Immat Gran (auto) Absolute Neuts (auto) Absolute Nucleated RBC Nucleated RBC % Sodium Potassium Chloride Carbon Dioxide Anion Gap BUN Creatinine Estim Creat Clear Calc Estimated GFR Glucose POC Capillary Glucose 310 H 261 H 282 H Calcium Magnesium Total Bilirubin AST ALT Alkaline Phosphatase Total Protein Albumin 04/04/24 04/04/24 04/04/24 06:25 08:23 11:31 WBC 13.3 H RBC 5.48 Hgb 16.0 Hct 47.3 MCV 86.3 MCH 29.2 MCHC 33.8 RDW 12.9 Plt Count 241 MPV 9.6 Immature Gran % (Auto) 0.4 Neut % (Auto) 75.1 H Lymph % (Auto) 14.9 L [place] % (Auto) 8.5 Eos % (Auto) 0.5 Baso % (Auto) 0.6 Lymph # (Auto) 1.97 [place] # (Auto) 1.1 H Eos # (Auto) 0.1 Baso # (Auto) 0.1 Abs Immat Gran (auto) 0.05 H Absolute Neuts (auto) 10.0 H Absolute Nucleated RBC 0.000 Nucleated RBC % 0.0 Sodium 134 L Potassium 3.2 L Chloride 101 Carbon Dioxide 29 Anion Gap 4 BUN 6 L Creatinine 0.50 L Estim Creat Clear Calc 128 Estimated GFR > 60 Glucose 199 H POC Capillary Glucose 221 H 158 H Calcium 8.7 Magnesium 1.8 Total Bilirubin 0.7 AST 30 ALT 20 Alkaline Phosphatase 107 Total Protein 7.0 Albumin 3.9
--- NOTE | 2024-04-04 13:52 | WPDANESPN ---
Anes - Prog Note Post-Op Date/Time: 04/04/24 13:52 Cardiovascular status: normal Respiratory status: normal Airway patency: baseline Mental status: baseline Post-Op hydration status: normal Vital Signs: Last Vital Signs Temp 36.6 C 04/04/24 11:49 Pulse 101 H 04/04/24 11:49 Resp 16 04/04/24 11:49 BP 150/80 H 04/04/24 11:49 Pulse Ox 97 04/04/24 11:49 O2 Del Method Room Air 04/04/24 08:59 O2 Flow Rate 2 04/03/24 15:00 Pain Score (VAS): 0 I/O: Intake & Output 04/03/24 04/04/24 04/04/24 23:59 07:59 15:59 Intake Total 524 2330 290 Output Total 310 Balance 214 2330 290 Laboratory Tests 04/04/24 06:25 04/04/24 06:25 04/03/24 04/03/24 04/03/24 13:57 16:07 19:49 WBC RBC Hgb Hct MCV MCH MCHC RDW Plt Count MPV Immature Gran % (Auto) Neut % (Auto) Lymph % (Auto) [place] % (Auto) Eos % (Auto) Baso % (Auto) Lymph # (Auto) [place] # (Auto) Eos # (Auto) Baso # (Auto) Abs Immat Gran (auto) Absolute Neuts (auto) Absolute Nucleated RBC Nucleated RBC % Sodium Potassium Chloride Carbon Dioxide Anion Gap BUN Creatinine Estim Creat Clear Calc Estimated GFR Glucose POC Capillary Glucose 310 H 261 H 282 H Calcium Magnesium Total Bilirubin AST ALT Alkaline Phosphatase Total Protein Albumin 04/04/24 04/04/24 04/04/24 06:25 08:23 11:31 WBC 13.3 H RBC 5.48 Hgb 16.0 Hct 47.3 MCV 86.3 MCH 29.2 MCHC 33.8 RDW 12.9 Plt Count 241 MPV 9.6 Immature Gran % (Auto) 0.4 Neut % (Auto) 75.1 H Lymph % (Auto) 14.[address] [place] % (Auto) 8.5 Eos % (Auto) 0.5 Baso % (Auto) 0.6 Lymph # (Auto) 1.97 [place] # (Auto) 1.1 H Eos # (Auto) 0.1 Baso # (Auto) 0.1 Abs Immat Gran (auto) 0.05 H Absolute Neuts (auto) 10.0 H Absolute Nucleated RBC 0.000 Nucleated RBC % 0.0 Sodium 134 L Potassium 3.2 L Chloride 101 Carbon Dioxide 29 Anion Gap 4 BUN 6 L Creatinine 0.50 L Estim Creat Clear Calc 128 Estimated GFR > 60 Glucose 199 H POC Capillary Glucose 221 H 158 H Calcium 8.7 Magnesium 1.8 Total Bilirubin 0.7 AST 30 ALT 20 Alkaline Phosphatase 107 Total Protein 7.0 Albumin 3.9 Post-procedural complaints: none Patient Feedback: Patient satisfied with anesthetic care.
--- NOTE | 2024-04-10 15:52 | PM.DS ---
DS: Admitting Diagnosis Discharge Date 04/04/24 Admitting Diagnosis cervical pseudoarthrosis cervical radiculopathy DS: Discharge Diagnosis Discharge Diagnosis (1) Status post cervical arthrodesis: Code(s): Z98.1 - Arthrodesis status Status: Acute (2) Pseudoarthrosis of cervical spine: Code(s): S12.9XXA - Fracture of neck, unspecified, initial encounter Status: Acute DS: Summary Hospital Course Hospital Course: Mr. Nguyen is a 63-year-old male who underwent an ACDF in July who is clinically doing well for several months after surgery until he developed recurrent neck pain and paresthesias in the left hand. Imaging showed that his cervical plate and screws were partially backing out of his spine. He presented on April 03 for further surgery; please see the operative note for more details. He was transferred to the floor after surgery. He worked with Physical therapy who cleared him for discharge home. He was clinically doing well on postoperative day 1 with tolerable incisional pain and no significant swallowing difficulty. His Hemovac drain was removed on postoperative day 1. He was determined ready to go home on postoperative day 1. Time Spent with Patient Time attestation: Total time spent providing and/or coordinating discharge services: Discharge Plan Discharge Consulting providers: Agustín Siddiqi; Verónica Rodriguez; Chris Flowers; Royal Hancock; Kyleigh De Santiago Discharging Clinician: Liset Lopez Patient Disposition: Home, Self-Care Activity: other - see discharge instructions Diet: as tolerated Wound Care Instructions: follow printed instructions Discharge Instructions: Discharge Instructions Procedure: Posterior/anterior cervical decompression and fusion Your doctor placed hardware to stabilize the spine. Here are some instructions to follow upon discharge from the hospital to help in your recovery. Activity: Unless released by your doctor, you should not return to work. You should rest at home and let your body heal. Taking short walks is encouraged, but avoid strenuous exercise. Do not jog, run, lift weights, bicycle, or participate in other exercises unless specifically allowed by your doctor. Most importantly, avoid lifting objects heavier than a telephone book or a carton of milk as this places a strain on your neck. If possible, avoid household activities that involve lifting such as laundry, grocery shopping, or childcare. Try to arrange for help from friends and family for these activities while your neck heals. You may remove your dressing and shower starting on post-operative day 2 (Monday). After showering, lightly dab your wound dry. Do not take baths or sit in a hot tub or pool until approved by your doctor. You may get your incision wet with soap and water, but do not submerge the incision under water. You should wear your collar at all times for the next 6 weeks. DO NOT SMOKE TOBACCO OR USE NICOTINE PRODUCTS. Smoking has been proven to interfere with the normal healing of the bones in your neck. Smoking will dramatically reduce the success rate of your surgery. Diet: You can return to your usual diet, unless instructed otherwise by your doctor. Medications: You should resume taking all of your normal medications unless instructed otherwise by your doctor. You may take Tylenol 1000mg every 6 hours as needed for pain. If your pain is still uncontrolled after Tylenol, then take oxycodone. You may also take flexeril for neck pain and muscle spasms every 8 hours. However, you should not take anti-inflammatory medications (such as Motrin, Advil, ibuprofen, naproxen) unless specifically approved by your doctor. These medications can prevent your bones from healing properly after surgery. If you have questions about your normal medications (for example, those prescribed for high blood pressure), you should contact your primary care doctor. You will be given a prescription for pain medications and possibly a laxative, as pain medications can cause constipation. Take the pain medication as instructed. If your pain is not reasonably controlled by the medications, contact your doctor's office. Follow-up appointment: You should already have a follow-up appointment scheduled with Dr. Lopez for removing your stitches in 2 weeks. If you do not have an appointment, call to schedule one. When to call our office: Although your surgery and recovery will likely be uneventful, you may have some residual aches and pains in your neck and/or arms. This is normal and should improve in the next few weeks. However, should you experience any of the following, call our office immediately. For medical emergencies, call 911. For urgent calls after hours, please call our exchange at [phone]. 1. Fevers 2. Drainage from your incision, or surrounding redness or swelling 3. Pain that is progressively getting worse and is not relieved by your medications 4. New numbness or weakness 5. Difficulty controlling your bladder 6. Loss of control of your bowels Liset Lopez MD Neurosurgery [place] [address], [place] [address] Patient Instructions: Antibiotic Form, Oxycodone/Acetaminophen (By mouth), Cyclobenzaprine (By mouth) Patient Language: [place] Stand Alone Forms: General Discharge Information Follow-up/Referrals: Liset Lopez MD [Physician] - Discharge Medications: New cyclobenzaprine 10 mg Tablet 10 mg PO TID PRN (Reason: Muscle Spasms) 10 Days Qty: 30 0RF sennosides-docusate sodium [Senokot-S] 8.6-50 mg Tablet 1 tab PO BID 7 Days Qty: 14 0RF oxycodone 5 mg Tablet 5 mg PO Q6H PRN (Reason: Pain Rated 4-6) 7 Days Qty: 28 0RF Continued amlodipine 10 mg tablet 10 mg PO DAILY pregabalin 100 mg capsule 100 mg PO BID omeprazole 20 mg capsule,delayed release(DR/EC) 20 mg PO DAILY losartan 50 mg tablet 50 mg PO DAILY Repatha SureClick 140 mg/mL pen injector 140 mg subcut .biweekly Rx Instructions: Every 2 weeks. cyclobenzaprine 10 mg tablet 10 mg PO TID PRN (Reason: muscle spasm) Qty: 30 0RF ergocalciferol (vitamin D2) [Vitamin D2] 1,250 mcg (50,000 unit) Capsule 1,250 mcg PO WEEKLY Patient Comments: PT DOES NOT TAKE WEEKLY Rx Instructions: Monday cyanocobalamin (vitamin B-12) 1,000 mcg/mL Kit 1,000 mcg SUBCUT ONCE Rx Instructions: Monthly Jardiance 25 mg tablet 25 mg PO DAILY Rybelsus 3 mg tablet 3 mg PO DAILY Date of admission: 04/03/24 12:49 Primary Care Provider: RUBI,MARYA Admitting Provider: Liset Lopez Attending physician on admission: Liset Lopez Condition: Stable
== END 2024-04-04 14:08 | disposition home or self-care (01) | DRG 321 ==
LOC: ANH3MED 15:33
PROVIDERS: Nurse Practitioner; Admitting Provider Neurological Surgery; PCP Family Medicine; Visit Provider Neurological Surgery
PROC: 0RG10K1 Fusion of Cervical Vertebral Joint with Nonautologous Tissue Substitute, Posterior Approach, Posterior Column, Open Approach (ICD-10-PCS; principal; 2024-04-03 07:30)
PROC: 0RG10K1 Fusion of Cervical Vertebral Joint with Nonautologous Tissue Substitute, Posterior Approach, Posterior Column, Open Approach (ICD-10-PCS; CPT 63030; 2024-04-03 07:30)
DX: T84.216A Breakdown (mechanical) of internal fixation device of vertebrae, initial encounter (principal); M96.0 Pseudarthrosis after fusion or arthrodesis; I10 Essential (primary) hypertension; E11.65 Type 2 diabetes mellitus with hyperglycemia; Z87.891 Personal history of nicotine dependence
CPT/HCPCS: 36415; 80053; 82948; 83735; 85025; 97161; 97165; 97530; 97535; 99199; A9270; C1713; J0690; J1100; J1171; J1815; J2003; J2250; J2270; J2405; J2704; J3010; J7030; J7120

== ENCOUNTER 2024-05-15 09:21 | Outpatient (CLI) | payer MEDICAID, SELFPAY ==
--- NOTE | ~2024-05-15 | XR_ITS ---
[id number] Ordering provider: Liset Lopez MD History: . Z98.1 - Arthrodesis status SURGERY MAR 2024 . Comparison: January 04, 2024 FINDINGS: VERTEBRAL BODIES: Postoperative changes anteriorly and posteriorly at the level of C5, C6 and C7. Oth erwise, Normal height and alignment. No visible fracture or subluxation. The dens is intact. DISK SPACES: Well maintained. Disc spacer at the level of C5-C6 and C6-C7. PARASPINOUS SOFT TISSUES: No prevertebral soft tissue swelling. IMPRESSION: No acute osseous abnormality cervical spine. Postoperative changes. Reviewed, dictated and finalized at location A. [employer]
== END 2024-05-15 09:22 | disposition home or self-care (01) ==
PROVIDERS: PCP Family Medicine; Visit Provider Neurological Surgery
DX: Z98.1 Arthrodesis status (principal)
CPT/HCPCS: 72040

== ENCOUNTER 2024-07-18 08:42 | Outpatient (CLI) | payer MEDICAID, SELFPAY ==
--- NOTE | ~2024-07-18 | XR_ITS ---
[id number] Ordering provider: Liset Lopez MD History: . Z98.1 - Arthrodesis status, follow-up . Comparison: May 15, 2024 FINDINGS: VERTEBRAL BODIES: Postoperative changes seen anteriorly and posteriorly in the lower cervical area. O therwise, Normal height and alignment. No visible fracture or subluxation. The dens is intact. DISK SPACES: Well maintained. Disc spacers seen at the level of C5-C6 and C6-C7 PARASPINOUS SOFT TISSUES: No prevertebral soft tissue swelling. IMPRESSION: No acute osseous abnormality cervical spine. Postoperative changes. Reviewed, dictated and finalized at location A.
--- OUTSIDE RECORDS SUMMARY | 2024-07-18 08:55 | XMS_ITS | Clinical Summary ---
Author Organization [facility] Address [address] [place] [address] Care Team Providers Care Corporate Intern Name Role Phone Unavailable Primary Care Provider Unavailabl e Source Comments [facility],non-owned Affiliates and Associated Physician Practices is amultiple site organization consisting of ambulatory clinics and hospital sitesin [place], [place], [place] and [place]. This disclosure is being madepursuant to the Care Everywhere program and may not contain all information available regarding this patient. Last updated 18.[facility] Allergies No known active allergies Medications * Be aware that medications may not be up to date on this document. Alwaysverify current medications with the patient. Medication Sig Dispensed Refills Start Date End Date Status alprazolam (XANAX) 0.5 MG tablet Take 0.5 mg by mouth 3 times daily as needed for Anxiety. Active escitalopram (LEXAPRO) 10 MG tablet Take 10 mg by mouth daily. Active esomeprazole (NEXIUM) 40 MG capsule Take 1 Cap by mouth daily before breakfast. 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 Pulse 71 06/25/2009 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 Temperature 36.6 C (97.8 F) 06/25/2009 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 Respiratory Rate 16 06/25/2009 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 Oxygen Saturation 98% 06/25/2009 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 Inhaled Oxygen Concentration - - Weight 105 kg (231 lb 7.7 oz) 06/24/2009 8:58 PM 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 Height 175.3 cm (5' 9 ) 06/22/2009 9:58 PM 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 Body Mass Index 34.18 06/22/2009 9:58 PM 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 Plan of Treatment Health Maintenance Due Date Last Done Comments COLOGUARD (AGES 45-75) - COL ON CA SCREENING 1961 COLON MONITORING 1961 COLONOSCOPY - COLON CA SCREENING 1961 CT COLONOGRAPHY - COLON CA SCREENING 1961 Colorectal Cancer Screening 1961 FIT - COLON CA SCREENING 1961 FLEX SIG - COLON CA SCREENING 1961 LIPID TESTING 1961 HIV SCREENING 1976 HEPATITIS C SCREENING 09/06/1979 DTAP/TDAP/TD VACCINES (1 - Tdap) 1980 PNEUMOCOCCAL VACCINE 50+ (1 of 2 - PCV) 1980 PNEUMOCOCCAL VACCINE (1 of 2 - PCV) 1980 ZOSTER VACCINE (1 of 2) 09/11/2011 COVID-19 VACCINE ( - 2023-2 5 season) 2023 INFLUENZA VACCINE (#1) 2023 DEPRESSION SCREENING 05/01/2024 Respiratory Syncytial Virus (RSV) Vaccine Pt: or over 60 yrs (1 - 1-dose 75+ series) 2036 HEPATITIS B VACCINE Aged Out No longe r eligible based on patient's age to complete this topic HIB VACCINE Aged Out No longer eligi ble based on patient's age to complete this topic HPV VACCINE Aged Out No longer eligi ble based on patient's age to complete this topic MENINGOCOCCAL (Group B) VACC INE SHARED DECISION-MAKING Aged Out No longer eligibl e based on patient's age to complete this topic MENINGOCOCCAL GROUPS A/C/Y/W VACCINE Aged Out No longer eligible b ased on patient's age to complete this topic Advance Directives * Full Code (Latest Code Status on File) Date Activated Date Inactivated Comments 06/22/2009 9:32 PM 06/26/2009 2:45 AM
--- OUTSIDE RECORDS SUMMARY | 2024-07-18 08:55 | XMS_ITS | Clinical Summary ---
Author Organization [facility] Address [address] [place] [address] Phone Care Team Providers Care Front End Technician Name Role Phone Lisseth Hu MD Primary Care Provider [phone] Allergies Active Allergy Reactions Criticality Noted Date Comments Hydrocodone-Acetaminophen Other (see Comments) Low 12/28/2018 jittery Medications losartan (COZAAR) 50 MG Tablet TAKE 1 TABLET BY MOUTH ONCE DAILY 04/30/2020 Active rosuvastatin (CRESTOR) 10 MG Tablet 02/26/2021 Active amLODIPine (NORVASC) 10 MG Tablet Take 10 mg by mouth daily. Active Omeprazole 20 MG Tablet Delayed Response Take by mouth. Active pregabalin (LYRICA) 100 MG Capsule Take 100 mg by mouth daily. Active Dulaglutide (Trulicity) 0.75 MG/0.5ML Solution Pen-injector Active naproxen (NAPROSYN) 500 MG Tablet Take 1 Tablet by mouth 2 times daily as needed for Mild or more severe pain. 20 Tablet 08/02/2023 Active ondansetron (ZOFRAN-ODT) 4 MG TABLET DISPERSIBLE Take 1 Tablet by mouth every 8 hours as needed for Nausea - 1st line. 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 LELE (obstructive sleep apnea) 11/23/2016 Non morbid obesity due to excess calories 2016 Essential (primary) hypertension 11/23/2016 Encounters Date Type Department Care Team Description 05/17/2024 7:24 AM CABINET INSTALLER - 05/17/2024 10:18 AM CABINET INSTALLER Emergency [facility] [address] [place] [address] Thee Madera MD Opiate use Discharge Disposition: Discharged to home or Selfcare 05/17/2024 Travel from Last 3 Months Family History Medical History Relation Name Comments Heart Attack Father Diabetes Mother Kidney Cancer Mother Relation Name Status Comments Father Mother Social History Tobacco Use Types Packs/Day Years Used Date Smoking Tobacco: Every Day Cigarettes 2 30 Smokeless Tobacco: Never Tobacco Cessation:Ready to Q uit: No; Counseling Given: Yes Alcohol Use Standard Drinks/Week Comments No 0 (1 standard drink = 0.6 oz pur e alcohol) Sexually Active Control Partners Comments Yes None Female Sex and Gender Information Value Date Recorded Sex Assigned at Male 06/14/2023 10:18 PM CABINET INSTALLER Legal Sex Male 12:31 AM CDT Gender Identity Male 06/14/2023 10:18 PM CABINET INSTALLER Sexual Orientation Not on file 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 on file Not on file Not on file Last Filed Vital Signs Vital Sign Reading Time Taken Comments Blood Pressure 169/83 05/17/2024 7:26 AM CABINET INSTALLER Pulse 118 05/17/2024 7:26 AM CABINET INSTALLER Temperature 37.9 C (100.2 F) 05/17/2024 7:26 AM CABINET INSTALLER Respiratory Rate 20 05/17/2024 7:26 AM CABINET INSTALLER Oxygen Saturation 100% 05/17/2024 7:26 AM CABINET INSTALLER Inhaled Oxygen Concentration - - Weight 74.8 kg (165 lb) 05/17/2024 7:26 AM CABINET INSTALLER Height 175.3 cm (5' 9 ) 05/17/2024 7:26 AM CABINET INSTALLER Body Mass Index 24.37 05/17/2024 7:26 AM CABINET INSTALLER Plan of Treatment Health Maintenance Due Date Last Done Comments Hepatitis C Virus (HCV) Screening 1960 TdaP Immunization 1960 Colonoscopy 2006 Colorectal Cancer Screening 2006 Cologuard 09/11/2011 Immunochemical Fecal Occult Blood 09/11/2011 Lung Cancer Screening 09/11/2011 Pneumococcal Immunization (50+ years) (2 of 2 - PCV) 11/08/2018 11/08/2017 Influenza Immunization (#1) 2023 09/0 11/2022, 01/25/2022, 02/26/2021, Additional history exists SARS-COV-2 Immunization ( season) 2023 06/26/2022, 03/27/2021, 07/04/2020 Pneumococcal Immunization Combined Discontinued 11/08/2017 Zoster Immunization Completed 02/12/2018, 8 PSA Discussion Discontinued 09/26/2020, 05/0 07/2020, 10/16/2018 Respiratory Syncytial Virus (RSV) Immunization (Adult) Completed 01/06/2023 Hepatitis B Immunization Aged Out No longer eligible based on patient's age to complete this topic Meningococcal Immunization (ACWY) Aged Out No longer eligible based on patient's age to complete this topic Rotavirus Immunization Aged Out No lo nger eligible based on patient's age to complete this topic Procedures Procedure Name Priority Date/Time Associated Diagnosis Comments XR CHEST SINGLE VIEW PORTABLE STAT 05/17/2024 8:56 AM CABINET INSTALLER URINE DRUG SCREEN STAT 05/17/2024 8:2 0 AM CABINET INSTALLER URINALYSIS REFLEX IF INDICATED BY ABNORMAL RESULTS STAT 05/17/2024 8:20 AM CABINET INSTALLER RSV,SARS-COV-2,INFLUE NZA A&B BY PCR STAT 05/17/2024 8:15 AM CABINET INSTALLER CBC WITH AUTO DIFFERENTIAL STAT 05/17/2024 7:38 AM CABINET INSTALLER CMP (COMPREHENSIVE METABOLIC PANEL) STAT 05/17/2024 7:38 AM CABINET INSTALLER COMPLETE BLOOD COUNT (CBC) WITH DIFF STAT 05/17/2024 7:38 AM CABINET INSTALLER PSA DIAGNOSTIC,TOTAL STAT 09/26/2020 11:33 AM CDT from Last 3 Months or Most Recently Relevant to Health Maintenance Results * XR CHEST SINGLE VIEW PORTABLE (05/17/2024 8:56 AM CABINET INSTALLER) Anatomical Region Laterality Modality Chest N/A Digital Radiogra phy 05/17/2024 9:15 AM CABINET INSTALLER Impressions 05/17/2024 9:17 AM CABINET INSTALLER IMPRESSION: No acute cardiopulmonary abnormality. Narrative 05/17/2024 9:17 AM CABINET INSTALLER EXAM DESCRIPTION: XR CHEST SINGLE VIEW PORTABLE REASON FOR STUDY: Productive cough, shortness of breath, nausea, vomitting x 2 days- HX smoker, HTN TECHNIQUE: 1 radiographic view(s) of the chest. COMPARISON: 03/24/2022 FINDINGS: LUNGS: No focal opacity, pleural effusion, or pneumothorax. HEART/MEDIASTINUM: Cardiac silhouette normal in size. Mediastinal and hilar contours appear normal. LINES/TUBES: None. BONES: No acute osseous abnormality. THIS IS AN ELECTRONICALLY VERIFIED FINAL REPORT 05/17/2024 9:15 AM - Electronically signed by Raj Zepeda M.D. KR: ROGELIO Report ID: [id number] Reading Location: [id number] Procedure Note Raj Zepeda MD - 05/17/2024 EXAM DESCRIPTION: XR CHEST SINGLE VIEW PORTABLE REASON FOR STUDY: Productive cough, shortness of breath, nausea, vomitting x 2 days- HX smoker, HTN TECHNIQUE: 1 radiographic view(s) of the chest. COMPARISON: 03/24/2022 FINDINGS: LUNGS: No focal opacity, pleural effusion, or pneumothorax. HEART/MEDIASTINUM: Cardiac silhouette normal in size. Mediastinal and hilar contours appear normal. LINES/TUBES: None. BONES: No acute osseous abnormality. THIS IS AN ELECTRONICALLY VERIFIED FINAL REPORT 05/17/2024 9:15 AM - Electronically signed by Raj Zepeda M.D. KR: KR Report ID: [id number] Reading Location: [place] [address] IMPRESSION: No acute cardiopulmonary abnormality. Thee Madera MD IMG DIAGNOSTIC ORDERABLES Final Result * (ABNORMAL) Urinalysis w/ Reflex (05/17/2024 8:20 AM CABINET INSTALLER) SPECIFIC GRAVITY 1.010 1.003 - 1.030 05/17/2024 9:26 AM [facility] URINE PH 7.0 5.0 - 9.0 05/17/2024 9:26 AM [facility] WBC ESTERASE Negative Negative 05/17/2024 9:26 AM [facility] NITRITE Negative Negative 05/17/2024 9:26 AM [facility] PROTEIN, RANDOM URINE 30 mg/dL(A) Negative 05/17/2024 9:26 AM [facility] URINE GLUCOSE, QUAL 1000 mg/dL(A) Negative 05/17/2024 9:26 AM [facility] URINE KETONES 50 mg/dL(A) Negative 05/17/2024 9:26 AM [facility] UROBILINOGEN Normal Normal mg/dL 05/17/2024 9:26 AM [facility] URINE BLOOD 25 /uL(A) Negative ken/ul 05/17/2024 9:26 AM [facility] URINALYSIS COLOR Yellow 05/17/2024 9:26 AM [facility] URINALYSIS CLARITY Clear 05/17/2024 9:26 AM [facility] WBC (Urine) Negative Negative, 0-5 /hpf 05/17/2024 9:26 AM CABINET INSTALLER [facility] URINE RBC'S 6-10(A) Negative, 0-2 /hpf 05/17/2024 9:26 AM CABINET INSTALLER [facility] EPITHELIAL CELLS Occasional /lpf 05/17/2024 9:26 AM CABINET INSTALLER [facility] BACTERIA, URINE Negative Negative /hpf 05/17/2024 9:26 AM [facility] Urine URINE SPECIMEN / Unknown Non-Phlebotomy Collection / Unknown 05/17/2024 8:20 AM CABINET INSTALLER 05/17/2024 8:44 AM CABINET INSTALLER us Thee Madera MD URINE ORDERABLES Final Result [facility] [address] [place] [address] * (ABNORMAL) Urine Drug Screen (05/17/2024 8:20 AM CABINET INSTALLER) UR AMPHETAMINE NON DETECTED NON DETECTED 05/17/2024 9:02 AM CABINET INSTALLER [facility] Comment: FOR MEDICAL USE ONLY. CUTOFF CONCENTRATION FOR DETECTED RESULT: AMPHETAMINE: 500 NG/ML UR BENZODIAZEPINES NON DETECTED NON DETECTED 05/17/2024 9:02 AM [facility] Comment: FOR MEDICAL USE ONLY. CUTOFF CONCENTRATION FOR DETECTED RESULT: BENZODIAZAPINE: 200 NG/ML UR COCAINE METABOLITE NON DETECTED NON DETECTED 05/17/2024 9:02 AM CABINET INSTALLER [facility] Comment: FOR MEDICAL USE ONLY. CUTOFF CONCENTRATION FOR DETECTED RESULT: COCAINE: 150 NG/ML UR OPIATES DETECTED(A) NON DETECTED 05/17/2024 9:02 AM CABINET INSTALLER [facility] Comment: FOR MEDICAL USE ONLY. CUTOFF CONCENTRATION FOR DETECTED RESULT: OPIATES: 300 NG/ML UR PHENCYCLIDINE NON DETECTED NON DETECTED 05/17/2024 9:02 AM CABINET INSTALLER [facility] Comment: FOR MEDICAL USE ONLY. CUTOFF CONCENTRATION FOR DETECTED RESULT: PCP: 25 NG/ML UR CANNABINOID DETECTED(A) NON DETECTED 05/17/2024 9:02 AM [facility] Comment: FOR MEDICAL USE ONLY. CUTOFF CONCENTRATION FOR DETECTED RESULT: THC (MARIJUANA): 50 NG/ML UR BARBITURATE NON DETECTED NON DETECTED 05/17/2024 9:02 AM CABINET INSTALLER [facility] Comment: FOR MEDICAL USE ONLY. CUTOFF CONCENTRATION FOR DETECTED RESULT: BARBITUATES: 200 NG/ML UR FENTANYL NON DETECTED NON DETECTED 05/17/2024 9:02 AM CABINET INSTALLER [facility] Comment: FOR MEDICAL USE ONLY. CUTOFF CONCENTRATION FOR DETECTED RESULT: FENTANYL: 1.0 NG/ML Urine Non-Phlebotomy Collection / Unknown 05/17/2024 8:20 AM CABINET INSTALLER 05/17/2024 8:44 AM CABINET INSTALLER Thee Madera MD URINE ORDERABLES Final Result [facility] [address] [place] [address] * (ABNORMAL) RITA-COV-2 Flu RSV - (Quad PCR) (05/17/2024 8:15 AM CABINET INSTALLER) FLU A Positive(A) Negative, Error 05/17/2024 9:50 AM CABINET INSTALLER [facility] FLU B Negative Negative 05/17/2024 9:50 AM CABINET INSTALLER [facility] RESP SYNC VIRUS Negative Negative 9:50 AM CABINET INSTALLER [facility] SARSCOV2 NOT DETECTED (Reference Range for this test is Not Detected) 05/17/2024 9:50 AM CABINET INSTALLER [facility] Comment:This test was perfor med by a Reverse Fountain Server PCR Method. Swab NASOPHARYNGEAL SWAB / Unknown Non-Phlebotomy Collection / Unknown 05/17/2024 8:15 AM CABINET INSTALLER 05/17/2024 8:44 AM CABINET INSTALLER Narrative [facility] - 05/17/2024 9:50 AM CABINET INSTALLER This test has not been FDA cleared or approved; the test has been authorized by FDA under an Emergency Use Authorization (EUA) for use by laboratories certified under the CLIA that meet the requirements to perform moderate, high or waived complexity tests. Authorized Fact Sheets about this test for providers and patients are available at: https://www.fda.gov/medical-devices/uxcwcnvle-npftdpdhsp-pzxdtzz-devices/emergen -us e-authorizations us Thee Madera MD MICROBIOLOGY - GENERAL ORDERABLE S Final Result [facility] [address] [place] [address] * (ABNORMAL) CBC with Auto Differential (05/17/2024 7:38 AM CABINET INSTALLER) WBC 9.25 4.00 - 12.00 10(3)/mcL 05/17/2024 8:47 AM CABINET INSTALLER [facility] RBC 5.52 4.40 - 5.80 10(6)/mcL 05/17/2024 8:47 AM [facility] HEMOGLOBIN (HGB) 16.3 13.0 - 16.5 g/dL 05/17/2024 8:47 AM CABINET INSTALLER [facility] HEMATOCRIT (HCT) 46.4 38.0 - 50.0 % 05/17/2024 8:47 AM [facility] MCV 84.1 82.0 - 96.0 fL 05/17/2024 8:47 AM [facility] MCH 29.5 26.0 - 32.0 pg 05/17/2024 8:47 AM [facility] MCHC 35.1 31.0 - 36.0 g/dL 05/17/2024 8:47 AM CABINET INSTALLER [facility] PLATELET COUNT 208 140 - 440 10(3)/mcL 05/17/2024 8:47 AM CABINET INSTALLER [facility] RDW 12.9 11.8 - 15.5 % 05/17/2024 8:47 AM [facility] MPV 10.3 8.0 - 12.6 fL 05/17/2024 8:47 AM [facility] NEUTROPHILS 84.0(H) 40.0 - 68.0 % 05/17/2024 8:47 AM [facility] LYMPHOCYTES 5.6(L) 19.0 - 49.0 % 05/17/2024 8:47 AM [facility] MONOCYTES 8.3 3.0 - 13.0 % 05/17/2024 8:47 AM [facility] EOSINOPHILS 1.3 0.0 - 8.0 % 05/17/2024 8:47 AM [facility] BASOPHILS 0.8 0.0 - 1.0 % 05/17/2024 8:47 AM [facility] ABSOLUTE NEUTROPHILS 7.77(H) 1.40 - 5.30 10(3)/[facility] 05/17/2024 8:47 AM [facility] ABSOLUTE LYMPHOCYTES 0.52(L) 0.90 - 3.30 10(3)/[facility] 05/17/2024 8:47 AM [facility] ABSOLUTE MONOCYTES 0.77 0.10 - 0.90 10(3)/[facility] 05/17/2024 8:47 AM [facility] ABSOLUTE EOSINOPHIL 0.12 0.00 - 0.50 10(3)/[facility] 05/17/2024 8:47 AM [facility] ABSOLUTE BASOPHILS 0.07 0.00 - 0.10 10(3)/[facility] 05/17/2024 8:47 AM [facility] NRBC PER 100 WBC 0 05/17/19 25 8:47 AM [facility] Blood Venipuncture / Unknown 05/17/2024 7:38 AM [facility] 05/17/2024 8:44 AM [facility] us Thee Madera MD HEMATOLOGY ORDERABLES Final Resu lt [facility] [address] [place] [address] * (ABNORMAL) CMP (05/17/2024 7:38 AM [facility]) SODIUM 138 136 - 145 mmol/L 05/17/2024 9:05 AM [facility] POTASSIUM 3.1(L) 3.5 - 5.1 mmol/L 05/17/2024 9:05 AM [facility] CHLORIDE 101 98 - 107 mmol/L 05/17/2024 9:05 AM [facility] CO2, VENOUS 23 22 - 30 mmol/L 05/17/2024 9:05 AM [facility] ANION GAP 17.1 <18.0 mmol/L 05/17/2024 9:05 AM [facility] GLUCOSE 183(H) 70 - 99 mg/dL 05/17/2024 9:05 AM [facility] BUN 8 8 - 26 mg/dL 05/17/2024 9:05 AM [facility] CREATININE, BLOOD 0.74 0.70 - 1.30 mg/dL 05/17/2024 9:05 AM [facility] BUN/CREATININE RATIO 11(L) 12 - 20 ratio 05/17/2024 9:05 AM [facility] TOTAL PROTEIN 7.7 6.0 - 8.0 g/dL 05/17/2024 9:05 AM [facility] ALBUMIN 4.2 3.5 - 5.0 g/dL 05/17/2024 9:05 AM [facility] A/G RATIO 1.2 1.0 - 2.2 05/17/2024 9:05 AM [facility] CALCIUM 9.4 8.7 - 10.5 mg/dL 05/17/2024 9:05 AM [facility] T BILI 0.5 0.2 - 1.2 mg/dL 05/17/2024 9:05 AM [facility] SGOT (AST) 21 6 - 42 U/L 05/17/2024 9:05 AM [facility] SGPT (ALT) 13 6 - 55 U/L 05/17/2024 9:05 AM [facility] ALKALINE PHOSPHATASE 110 40 - 150 U/L 05/17/2024 9:05 AM CABINET INSTALLER [facility] GFR, ESTIMATED >60 >=60 05/17/2024 9:05 AM CABINET INSTALLER [facility] Comment: Creatinine Clearance is the preferred criteria for selecting drug dose adjustments in renally impaired patients. The GFR is provided as additional pertinent clinical information. GFR is reported in mL/min/1.73 sq m. Calculation based on the Chronic Kidney Disease Epidemiology Collaboration (CKD- EPI) equation refit without adjustment for race. GFR, EST. >60 >=60 025 9:05 AM CABINET INSTALLER [facility] GFR, EST. NONAFRICAN >60 >=60 05/17/2024 9:05 AM CABINET INSTALLER [facility] Blood Venipuncture / Unknown 05/17/2024 7:38 AM CABINET INSTALLER 05/17/2024 8:44 AM CABINET INSTALLER Thee Madera MD CHEMISTRY ORDERABLES Final Resul t [facility] [address] [place] [address] * PSA Diagnostic Total (09/26/2020 11:33 AM CDT) PSA, TOTAL (PROSTATIC SPECIFIC ANTIGEN) 1.47 <=4.00 ng/mL 09/26/2020 12:29 PM CDT [facility] Blood Venipuncture / Unknown 09/26/2020 11:33 AM CDT 09/26/2020 11:33 AM CDT Narrative [facility] - 09/26/2020 12:29 PM CDT PSA NOTE: The PSA value should be used in conjunction with information available from clinical evaluation and other diagnostic procedures. us Royal COOPER CHEMISTRY ORDERABLES Final Result [facility] [address] [place] [address] from Last 3 Months or Most Recently Relevant to Health Maintenance Insurance [place]ICAID [place] Care Teams Front End Technician Relationship Specialty Start Date End Date Lisseth Hu MD [address] [place] [id number] PCP - General 03/07/16
--- OUTSIDE RECORDS SUMMARY | 2024-07-18 08:55 | XMS_ITS | Clinical Summary ---
Author Organization [facility] Address [address] [place] [address] Phone Care Team Providers Care Rhia Name Role Phone STACY GREGORY, MARYA Unavailable [phone] LUCAS SALAS MD Unavailable [phone] HAYLEY FISCHER, MARCEL Walker Primary Care Provider [phone] KALEB SILVA MD Unavailable [phone] Reason for Visit and Chief Complaint * PHONE CALL Problems Includes: Problems addressed during this encounter and other active Problems All Visits Onset Date Resolved Date Provider Condition S tatus Sciatica Bilateral 02/25/2022 TAMICA Aragon Active Last Documented On 2 9:43AM ; [facility] Primary Insomnia 01/25/2022 MARYA KUMAR MD Active Last Documented On 2 2:57PM ; [facility] Arthralgia - Shoulder Region Bilateral 01/24/2018 MARYA KUMAR MD Active Last Documented On 01/24/2018 11:24AM ; [facility] Note: ---GIVE CORTISONE INJ ANTERIORLY Peripheral Neuropathy 10/18/2017 MARYA GALDAMEZ MD Active Last Documented On 8 9:12AM ; [facility] Personal history of colonic polyps 06/02/2017 Annie WEN DO Active Last Documented On 8 9:49AM ; [facility] Note: Unchanged Hypothyroidism 02/05/2016 MARYA KUMAR MD Active Last Documented On 6 4:34PM ; [facility] Depression 12/31/2009 MARYA KUMAR MD Act tamie Last Documented On 7 4:27PM ; [facility] Diabetes Mellitus Type 2 09/03/2008 MARYA DOLAN MD Active Last Documented On 0 11:25PM ; [facility] Hyperlipidemia 09/03/2008 MARYA KUMAR MD Active Last Documented On 1 11:12AM ; [facility] Essential Hypertension Benign 09/03/2008 MARYA KUMAR MD Active Last Documented On 0 11:25PM ; [facility] Plan of Treatment Pending Tests Order Diagnosis Results Due Ordering P rovider Lab TSH 04/19/23 MARYA GALDAMEZ MD Last Documented On 3 12:24PM ; [facility] Lab A1C HGB (GLYCO HEMOGLOBIN) 04/19/23 MARYA KUMAR MD Last Documented On 3 12:24PM ; [facility] Lab LIPID PANEL 04/19/23 MARYA LOPEZ MD Last Documented On 3 12:24PM ; [facility] Lab CMP 04/19/23 MARYA GALDAMEZ MD Last Documented On 3 12:24PM ; [facility] Lab PSA SCREEN 04/19/23 MARYA GALDAMEZ MD Last Documented On 3 12:24PM ; [facility] Lab Comp Metabolic Panel 07/30/23 CLIFFORD KUMAR MD Last Documented On 4 2:55PM ; [facility] Lab HgbA1C 07/30/23 MARYA GALDAMEZ MD Last Documented On 4 2:55PM ; [facility] Lab LIPID 07/30/23 MARYA GALDAMEZ MD Last Documented On 4 2:55PM ; [facility] Assessments Includes: Assessments from this encounter No Assessments Recorded Medical Equipment - Implanted Devices Includes: Current Devices No Medical Equipment Recorded Medications Includes: Medications discussed during this encounter and other current Medications New / Renewed during this visit MARYA KUMAR MD on 09/19/2023 Cyclobenzaprine HCl 10 MG Oral Tablet Provider: MARYA Rose 5 day supply: 15 tablet, 0 refills Diagnosis: One tablet three times a day prn muscle spasm may cause drowsiness Pharmacy: [facility] [address], [address] - Last Documented On 4 9:27AM By MARYA KUMAR MD ; [facility] Current Medications (continue as prescribed) Omeprazole 20 MG Oral Capsul e Delayed Release 10/14/2023 Provider: MARYA Rose Diagnosis: TAKE 1 CAPSULE BY MOUTH ONCE DAILY BEFORE NIGHT MEAL Last Documented On 4 12:09AM By MARYA KUMAR MD ; [facility] Jardiance 25 MG Oral Tablet 10/04/2023 Provider: MARYA Rose Diagnosis: Type 2 diabetes mellitus without complications 1 tablet every morning Last Documented On 4 9:18AM By MARYA KUMAR MD ; [facility] Cyclobenzaprine HCl 10 MG Oral Tablet 10/04/2023 Pro vider: MARYA KUMAR MD Diagnosis: One tablet at bed time Last Documented On 4 9:34AM By MARYA KUMAR MD ; [facility] Acetaminophen-Codeine 300-60 MG Oral Tablet 10/04/2023 Provider: MARYA Rose Diagnosis: Cervicalgia TAKE 1 TO 2 TABLETS BY MOUTH 4 TIMES DAILY NEEDED Last Documented On 4 1:09PM By RYAN ALY ; [facility] Ozempic (0.25 or 0.5 MG/DOSE) 2 MG/3ML Subcutaneous Solution Pen-injector 09/11/2023 Provider: MARYA Rose Diagnosis: Type 2 diabetes mellitus without complications 0.50 mg once weekly Last Documented On 4 1:26PM By MARYA KUMAR MD ; [facility] Losartan Potassium 50 MG Oral Tablet 08/01/2023 Prov ider: MARYA KUMAR MD Diagnosis: Take 1 tablet by mouth once daily Last Documented On 4 1:09PM By RYAN ALY ; [facility] Pregabalin 100 MG Oral Capsule 07/18/2023 Provider: MARYA KUMAR MD Diagnosis: Take 1 capsule by mouth twice daily Last Documented On 4 1:11PM By MARYA KUMAR MD ; [facility] Vitamin D (Ergocalciferol) 1 .25 MG (19049 UT) Oral Capsule 07/03/2023 Provider: MARYA Rose Diagnosis: TAKE 1 CAPSULE BY MOUTH EVERY OTHER WEEK Last Documented On 07/03/2023 12:52PM By Kizzy ALY ; [facility] Repatha SureClick 140 MG/ML Subcutaneous Solution Auto-injector 06/05/2023 Provider: MARYA Ruiz MD Diagnosis: as directed inject 140mg SQ every other week for cholesterol Last Documented On 4 11:58AM By MARYA KUMAR MD ; [facility] EQ Nicotine 14 MG/24HR Transdermal Patch 24 Hour 12/16/2022 Provider: MARYA GALDAMEZ MD Diagnosis: Nicotine depende nce, cigarettes, uncomplicated as directed on am and off pm Last Documented On 3 9:21AM By MARYA KUMAR MD ; [facility] Syringe 25G X 1 3 ML Miscellaneous 05/23/2022 Provi dean: MARYA KUMAR MD Diagnosis: USE WITH B12 SHOTS Last Documented On 05/23/2022 7:30AM By NADIR Franklin LPN ; [facility] Cyanocobalamin 1000 MCG/ML I njection Solution 05/20/2022 Provider: MARYA Rose Diagnosis: inject 1ml once a week for 6 weeks, then once a month Last Documented On 05/20/2022 5:17PM By Kizzy ALY ; [facility] Past Medications on file amLODIPine Besylate 10 MG Oral Tablet 08/29/2023 - 11/27/2023 Provider: MARYA ST MD Diagnosis: Take 1 tablet by mouth once daily Last Documented On 08/29/2023 5:14PM By Kizzy ALY ; [facility] Nortriptyline HCl 10 MG Oral Capsule 12/22/2022 - 01/21/2023 Provider: MARCEL HARYD PA-C Diagnosis: 1-2 cap po q HS PRN sleep. Last Documented On 3 4:10PM By MARCEL HARDY PA-C ; [facility] LORazepam 0.5 MG Oral Tablet 06/21/2021 - 06/28/2021 Ana barrientos: MARYA GALDAMEZ MD Diagnosis: 1 every 6 hours as needed PRN Last Documented On 2 2:34PM By MARYA KUMAR MD ; [facility] Medications Administered Includes: Administered Medications from this encounter No Administered Medications Recorded Results Includes: Results discussed during this encounter No Results Recorded For Specified Dates History of Present Illness Includes: History of Present Illness from this encounter No History of Present Illness Recorded Social History Description Last Updated 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 None 03/31/2023 Last Documented On 4 1:47PM ; [facility] Smoking packs of cigarettes per day Two packs a day 01/25/2023 Last Documented On 4 1:47PM ; [facility] Tobacco non-user 11/07/2022 Last Documented On 4 1:47PM ; [facility] Cigarette smoking: history 2 packs per d ay 02/15/2022 Last Documented On 4 1:47PM ; [facility] Current smoker for 38 years 02/15/2022 Last Documented On 4 1:47PM ; [facility] Smoking status : Current everyday smoker 2 ppd 08/13/2020 Last Documented On 4 1:47PM ; [facility] Smoker 12/26/2019 Last Documented On 4 1:47PM ; [facility] Procedures and Surgical History Surgical History Last Updated History of back surgery ...n lyly surgery 08/23/23 Dr. Liset Lopez @ [facility] : ~-Anterior cervical diskectomy C5-6 & C6-7 ~-Anterior cervical arthrodesis C5-6 & C6-7 w. i-factor ~-Anterior cervical interbody placement at C5-6 & C6-7 09/12/2023 Last Documented On 4 1:47PM ; [facility] History of cholecystectomy 2 005 - Re-operation shortly post operative for bleeding. ~LT KIDNEY STONE, STENT PLACED 12/[address] BROWN ~PROSTATE PARTIALLY REMOVED 08/202002/26/2021 Last Documented On 4 1:47PM ; [facility] History of tonsillectomy with adenoidect chiqui 199611/07/2011 Last Documented On 4 1:47PM ; [facility] Medical History Includes: Medical History addressed during this encounter Description Last Updated Has had a fall in the last 1 2 months. STEPPED IN HOLE AND FELL DOWN. ~ALSO A FALL STEPPING INTO TRUCK AND STEP WASN'T FASTENED 01/25/2023 Last Documented On 4 1:47PM ; [facility] Blood pressure was high 01/25/2023 Last Documented On 4 1:47PM ; [facility] Hypertension 01/25/2023 Last Documented On 4 1:47PM ; [facility] Taking medication for high blood pressur e 01/25/2023 Last Documented On 4 1:47PM ; [facility] Injection/Nerve blocks 01/25/2023 Last Documented On 4 1:47PM ; [facility] Moderate to severe pain 01/25/2023 Last Documented On 4 1:47PM ; [facility] Please list all illnesses/co nditions you have been diagnosed with: High blood pressure and diabetes 01/25/2023 Last Documented On 4 1:47PM ; [facility] Please list all surgeries: I have surgery. I had done [facility] in [place], [place] to remove part of my prostate. Can?t remember the date 01/25/2023 Last Documented On 4 1:47PM ; [facility] Last visit 12/16/2022 DR VENEGAS 3 Last Documented On 4 1:47PM ; [facility] Vaccine history June 29 2022 12/16/2022 Last Documented On 4 1:47PM ; [facility] History of colonoscopy fiberoptic was pe rformed 07/12/2021 repeat in 5 yrs 11/22/2022 Last Documented On 4 1:47PM ; [facility] Diabetes managed by insulin 09/29/2022 Last Documented On 4 1:47PM ; [facility] Insulin/carbohydrate ratio by home blood sugar check 09/29/2022 Last Documented On 4 1:47PM ; [facility] Long-term use of insulin 09/29/2022 Last Documented On 4 1:47PM ; [facility] History of nicotine dependence 2 Last Documented On 4 1:47PM ; [facility] History of diabetes mellitus 02/10/2020 Last Documented On 4 1:47PM ; [facility] History of hyperlipidemia 02/10/2020 Last Documented On 4 1:47PM ; [facility] History of hypertension 02/10/2020 Last Documented On 4 1:47PM ; [facility] History of thyroid disorder 02/10/2020 Last Documented On 4 1:47PM ; [facility] Taking OTC allergy medication decongesta nt 09/06/2016 Last Documented On 4 1:47PM ; [facility] History of esophageal reflux 11/07/2011 Last Documented On 4 1:47PM ; [facility] History of hiatal hernia 11/07/2011 Last Documented On 4 1:47PM ; [facility] History of irritable bowel syndrome 12/2011 Last Documented On 4 1:47PM ; [facility] carpal tunnel right hand 1997 11/07/2011 Last Documented On 4 1:47PM ; [facility] Exposure airborne chemical particulate 0 09/03/2008 Last Documented On 4 1:47PM ; [facility] Family History Includes: Family History addressed during this encounter Description Last Updated Fraternal history of family history of i schemic heart disease 01/25/2023 Last Documented On 4 1:47PM ; [facility] Fraternal history of stroke/paralysis Last Documented On 4 1:47PM ; [facility] Maternal history of Arthritis 01/25/2023 Last Documented On 4 1:47PM ; [facility] Maternal history of stroke/paralysis Last Documented On 4 1:47PM ; [facility] Paternal history of family history of is chemic heart disease 01/25/2023 Last Documented On 4 1:47PM ; [facility] Maternal history of systemic hypertension ~mom had many CVA ~sister age 70 CVA ~brother with CVA age 63 03/28/2022 Last Documented On 4 1:47PM ; [facility] Family history unchanged 01/13/2021 Last Documented On 4 1:47PM ; [facility] Maternal history of family history of ca ncer 12/07/2016 Last Documented On 4 1:47PM ; [facility] Paternal history of family history of he art disease 12/07/2016 Last Documented On 4 1:47PM ; [facility] Paternal history of diabetes mellitus FA THER, BROTHER 08/29/2014 Last Documented On 4 1:47PM ; [facility] Review of Systems Includes: Review of Systems from this encounter No Review of Systems Recorded Mental Status Includes: Mental Status from this encounter No Mental Status Recorded Functional Status Includes: Functional Status from this encounter No Functional Status Recorded Physical Exam Includes: Physical Exam from this encounter No Physical Exam Recorded Allergies Includes: Active Allergies Substance Type Reaction Onset Date Resolved Date Statu s Trulicity Intolerance pancreatitis 06/27/2019 Acti ve Last Documented On 4 1:08PM ; [facility] traMADol HCl Intolerance Sleeplessness / Insomnia 08/13/2020 Active Last Documented On 4 1:08PM ; [facility] Statins Allergy 03/28/2022 Active Last Documented On 09/11/2023 1:08PM ; [facility] Note: leg pains HYDROcodone-Acetaminophe n Intolerance Sleeplessness / Insomnia 12/28/2018 Act tamie Last Documented On 1:08PM ; [facility] Encounters Encounter Provider Location Date Check-In Time Check-Out Time Diagnosis * PHONE CALL MARYA KUMAR MD 09/19/2023 1:47PM 11:59PM Insurance Includes: Active Insurance Policies Plan Name Member ID Group # Subscriber Relationship Effect tamie Dates 1 - [facility] [id number] LEXY HOLLIS S elf 2 - MEDICAID [facility] [id number] LEXY HOLLIS Self Clinical Notes Includes: Clinical Notes from this encounter * Progress note Date Encounter Last Documented by 09/19/2023 * PHONE CALL Last documented on 09/19/2023; 5:20 PM, MARYA GALDAMEZ MD; [facility] Active Problems & Conditions - M25.519 - Arthralgia - Shoulder Region Bilateral - ---GIVE CORTISONE INJ ANTERIORLY - F32.9 - Depression - E11.9 - Diabetes Mellitus Type 2 - I10 - Essential Hypertension Benign - E78.5 - Hyperlipidemia - E03.9 - Hypothyroidism - G60.9 - Peripheral Neuropathy - Z86.010 - Personal history of colonic polyps - F51.01 - Primary Insomnia - M54.30 - Sciatica Bilateral Chief Complaint Phone Call - Chief Concern: Reason for call: pt left a msg asking if you can send in muscle relaxers for him and if his MRI was approved pt phone # for return call: Date/Initials: 09-19-23 . Current Medication - Acetaminophen-Codeine 300-60 MG Oral Tablet TAKE 1 TO 2 TABLETS BY MOUTH 4 TIMES DAILY NEEDED, 8 days, 0 refills - amLODIPine Besylate 10 MG Oral Tablet Take 1 tablet by mouth once daily, 90 days, 0 refills - Cyanocobalamin 1000 MCG/ML Injection Solution inject 1ml once a week for 6 weeks, then once a month, 84 days, 3 refills - EQ Nicotine 14 MG/24HR Transdermal Patch 24 Hour as directed on am and off pm, 30 days, 0 refills - Losartan Potassium 50 MG Oral Tablet Take 1 tablet by mouth once daily, 90 days, 0 refills - Omeprazole 20 MG Oral Capsule Delayed Release 1 capsule daily 30 days, 0 refills - Ozempic (0.25 or 0.5 MG/DOSE) 2 MG/3ML Subcutaneous Solution Pen-injector 0.50 mg once weekly, 30 days, 3 refills - Pregabalin 100 MG Oral Capsule Take 1 capsule by mouth twice daily, 90 days, 1 refills - Repatha SureClick 140 MG/ML Subcutaneous Solution Auto-injector as directed inject 140mg SQ every other week for cholesterol, 28 days, 5 refills - Syringe 25G X 1 3 ML Miscellaneous USE WITH B12 SHOTS, 90 days, 3 refills - Vitamin D (Ergocalciferol) 1.25 MG (08868 UT) Oral Capsule TAKE 1 CAPSULE BY MOUTH EVERY OTHER WEEK, 84 days, 1 refills Past Medical/Surgical History Reported: Injection/Nerve blocks, Please list all illnesses/conditions you have been diagnosed with: High blood pressure and diabetes, and Please list all surgeries: I have surgery. I had done [facility] in [place], [place] to remove part of my prostate. Can?t remember the date. Medical: Last visit 12/16/2022 DR VENEGAS, Vaccine history June 29 2022, orthopedic history Left Knee Score mild pain Moderate to severe pain, Diabetes Diabetes managed by insulin, and Hypertension. Medications: Taking medication for high blood pressure, medication for diabetes long-term use of insulin, and [id number] allergy medication decongestant. Tests: Blood pressure was high and home blood sugar check insulin/carbohydrate ratio. Environmental Exposure: Exposure airborne chemical particulate. Physical Trauma: Has had a fall in the last 12 months. STEPPED IN HOLE AND FELL DOWN. ALSO A FALL STEPPING INTO TRUCK AND STEP WASN'T FASTENED. Other: Diagnostic fiberoptic colonoscopy 07/12/2021 repeat in 5 yrs Diagnoses: Systemic hypertension. Esophageal reflux Hiatal hernia Irritable bowel syndrome. Hyperlipidemia. Thyroid disorder Diabetes mellitus. Nicotine dependence Carpal tunnel right hand 1996. Surgical: - Tonsillectomy with adenoidectomy 1996 - Cholecystectomy 2004 - Re-operation shortly post operative for bleeding. LT KIDNEY STONE, STENT PLACED 12/[address] BROWN PROSTATE PARTIALLY REMOVED 08/2020 - Back surgery ...neck surgery 08/23/23 Dr. Liset Lopez @ [facility] : -Anterior cervical diskectomy C5-6 & C6-7 -Anterior cervical arthrodesis C5-6 & C6-7 w. i-factor -Anterior cervical interbody placement at C5-6 & C6-7 Social History Tobacco use: Current smoker 1.5 PACKS, for 38 years, cigarette smoking smoking packs of cigarettes per day Two packs a day, 2 packs per day, tobacco non-user, smoker, and smoking status: Current everyday smoker 2 ppd. Alcohol: Consuming 5 or more drinks per day None. Drug Use: Using marijuana and Number of times used recreational drug/ prescription drug for nonmedical reason. None. 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 Allergies - HYDROcodone-Acetaminophen (Intolerance) Reaction: Sleeplessness / Insomnia - Statins - traMADol HCl (Intolerance) Reaction: Sleeplessness / Insomnia - Trulicity (Intolerance) Reaction: pancreatitis Family History Family history unchanged Paternal: Family history of Ischemic heart disease Diabetes mellitus FATHER, BROTHER Maternal: Arthritis Stroke/paralysis Cancer Systemic hypertension mom had many CVA sister age 70 CVA brother with CVA age 63 Fraternal: Stroke/paralysis Ischemic heart disease Plan StartCited - Other *Phone Call MRI approved he can call to set up [Note] Approved for [facility] site [id number] 09/11/23 to 10/23/23 [id number] fx [phone] also notify muscle relaxer called in Cyclobenzaprine HCl 10 MG tablet One tablet three times a day prn muscle spasm may cause drowsiness, 5 days, 0 refills EndCited Care Team - LUCAS SALAS MD - Cardiovascular Disease - KALEB SILVA MD - Pain Management Health Reminders - Assess Need for CT Lung Screen satisfied 09/19/2023. - Assess Tobacco Use satisfied 09/19/2023. - Colorectal Cancer Screening satisfied 07/12/2021.
--- OUTSIDE RECORDS SUMMARY | 2024-07-18 08:55 | XMS_ITS ---
Care Plan - [facility] Created on: July 18, 2024 LEXY HOLLIS : 1960 Sex: Male Author Organization [facility] Address [address] [place] [address] Phone Care Team Providers [employer] Executive Name Role Phone STACY GREGORY, MARYA Unavailable [phone] LUCAS SALAS MD Unavailable [phone] HAYLEY FISCHER, MARCEL Walker Primary Care Provider [phone] KALEB SILVA MD Unavailable [phone]
--- OUTSIDE RECORDS SUMMARY | 2024-07-18 08:55 | XMS_ITS | Clinical Summary ---
Author Organization [facility] Address [address] [place] [address] Phone Care Team Providers Care Paraeducator Name Role Phone STACY GREGORY, MARYA Unavailable [phone] LUCAS SALAS MD Unavailable [phone] MARCEL HARDY PA-C Primary Care Provider [phone] KALEB SILVA MD Unavailable [phone] Reason for Visit and Chief Complaint The Chief Complaint is: check up, states he has been dizzy, almost blacking out, he has black spots in his vision, he has been falling, he has had 4 falls in the last couple weeks, his left leg is worse and getting weaker, not sleeping at night due to the pain then is tired and wants to sleep all day. He's not eating more than a couple bites, nauseous. Not drinking enough water. His BP has been low so wonders about adjusting his meds. His pain meds are helping his back pain but not the leg pain Problems Includes: Problems addressed during this encounter and other active Problems Current Visit Onset Date Resolved Date Provider Parker salas Status Hypothyroidism 02/05/2016 MARYA KUMAR MD Active Last Documented On 6 4:34PM ; [facility] Depression 12/31/2009 MARYA KUMAR MD Act tamie Last Documented On 7 4:27PM ; [facility] Diabetes Mellitus Type 2 09/03/2008 MARYA DOLAN MD Active Last Documented On 0 11:25PM ; [facility] Hyperlipidemia 09/03/2008 MARYA KUMAR MD Active Last Documented On 1 11:12AM ; [facility] Essential Hypertension Benign 09/03/2008 MARYA KUMAR MD Active Last Documented On 0 11:25PM ; [facility] Past Visits Onset Date Resolved Date Provider Condition Status Sciatica Bilateral 02/25/2022 TAMICA Aragon Active Last Documented On 2 9:43AM ; [facility] Primary Insomnia 01/25/2022 MARYA KUMAR MD Active Last Documented On 2 2:57PM ; [facility] Arthralgia - Shoulder Region Bilateral 01/24/2018 MARYA KUMAR MD Active Last Documented On 01/24/2018 11:24AM ; [facility] Note: ---GIVE CORTISONE INJ ANTERIORLY Peripheral Neuropathy 10/18/2017 MARYA GALDAMEZ MD Active Last Documented On 8 9:12AM ; [facility] Personal history of colonic polyps 06/02/2017 Annie WEN DO Active Last Documented On 8 9:49AM ; [facility] Note: Unchanged Plan of Treatment Stop doing Ozempic. he has lots too much weight Start taking Jardiance 25 mg, one tablet in the morning. Made aware; it makes urine a little sticky. (This is the replacement for Ozempic). Stop taking amlodipine, it can lower your blood pressure. BP too low Refills on medication are provided to the patient. We discussed lifestyle recommendations, including the importance of a healthy diet and exercising as tolerated. Maintain a healthy diet. Encouraged to walk in the form of exercise. Stay well hydrated. Have more water. Follow up as scheduled. IJulieta, scribing the following service on behalf of Dr. Mayte Montanez on 10/04/2023. This note has been reviewed by the provider before submitting. - Last Documented On 10/12/2023 11:00PM ; [facility] Pending Tests Order Diagnosis Results Due Ordering P rovider Lab TSH 04/19/23 MARYA GALDAMEZ MD Last Documented On 3 12:24PM ; [facility] Lab A1C HGB (GLYCO HEMOGLOBIN) 04/19/23 MARYA KUMAR MD Last Documented On 3 12:24PM ; [facility] Lab LIPID PANEL 04/19/23 MARYA LOPEZ MD Last Documented On 3 12:24PM ; [facility] Lab CMP 04/19/23 MARYA GALDAMEZ MD Last Documented On 3 12:24PM ; [facility] Lab PSA SCREEN 04/19/23 MARYA GALDAMEZ MD Last Documented On 3 12:24PM ; [facility] Lab Comp Metabolic Panel 07/30/23 CLIFFORD KUMAR MD Last Documented On 4 2:55PM ; [facility] Lab HgbA1C 07/30/23 MARYA GALDAMEZ MD Last Documented On 4 2:55PM ; [facility] Lab LIPID 07/30/23 MARYA GALDAMEZ MD Last Documented On 4 2:55PM ; [facility] Instructions to patient Intervention and counseling on cessation of tobacco use Last Documented On 4 8:54AM ; [facility] Education and Decision Aids were provided during visit for: Patient education about home safety plans for prevention of falls : Patient completed a Fall risk assesment and was provided fall risk education materials Last Documented On 4 8:54AM ; [facility] Assessments Includes: Assessments from this encounter Findings - [R42 - Dizziness and giddiness] Dizziness - Last Documented On 10/12/2023 11:00PM ; [facility] - [I10 - Essential (primary) hypertension] Benign essential hypertension - Last Documented On 10/12/2023 11:00PM ; [facility] - [E78.5 - Hyperlipidemia, unspecified] Hyperlipidemia - Last Documented On 10/12/2023 11:00PM ; [facility] - [E03.9 - Hypothyroidism, unspecified] Hypothyroidism - Last Documented On 10/12/2023 11:00PM ; [facility] - [E11.9 - Type 2 diabetes mellitus without complications] Type 2 diabetes mellitus - Last Documented On 10/12/2023 11:00PM ; [facility] - [F32.9 - Major depressive disorder, single episode, unspecified] Depression - Last Documented On 10/12/2023 11:00PM ; [facility] Instructions Includes: Instructions from this encounter Instructions to patient Intervention and counseling on cessation of tobacco use Last Documented On 4 8:54AM ; [facility] Education and Decision Aids were provided during visit for: Patient education about home safety plans for prevention of falls : Patient completed a Fall risk assesment and was provided fall risk education materials Last Documented On 4 8:54AM ; [facility] Medical Equipment - Implanted Devices Includes: Current Devices No Medical Equipment Recorded Medications Includes: Medications discussed during this encounter and other current Medications New / Renewed during this visit MARYA KUMAR MD on 10/04/2023 Jardiance 25 MG Oral Tablet Provider: MARYA Rose 90 day supply: 90 tablet, 1 refills Diagnosis: Type 2 diabetes mellitus without complications 1 tablet every morning Pharmacy: [address], [id number] - Last Documented On 4 9:18AM By MARYA KUMAR MD ; [facility] Cyclobenzaprine HCl 10 MG Oral Tablet Provider: MARYA Rose 30 day supply: 30 tablet, 1 refills Diagnosis: One tablet at bed time Pharmacy: [address], [id number] - Last Documented On 4 9:34AM By MARYA KUMAR MD ; [facility] Acetaminophen-Codeine 300-60 MG Oral Tablet Provider: MARYA Rose 8 day supply: 60 tablet, 0 refills Diagnosis: Cervicalgia TAKE 1 TO 2 TABLETS BY MOUTH 4 TIMES DAILY NEEDED Pharmacy: [address], [id number] - Last Documented On 4 1:09PM By RYAN ALY ; [facility] Current Medications (continue as prescribed) Omeprazole 20 MG Oral Capsul e Delayed Release 10/14/2023 Provider: MARYA Rose Diagnosis: TAKE 1 CAPSULE BY MOUTH ONCE DAILY BEFORE NIGHT MEAL Last Documented On 4 12:09AM By MARYA KUMAR MD ; [facility] Ozempic (0.25 or 0.5 MG/DOSE) 2 MG/3ML Subcutaneous Solution Pen-injector 09/11/2023 Provider: MARYA Rose Diagnosis: Type 2 diabetes mellitus without complications 0.50 mg once weekly Last Documented On 4 1:26PM By MARYA KUMAR MD ; [facility] Losartan Potassium 50 MG Oral Tablet 08/01/2023 Prov ider: MARYA KUMAR MD Diagnosis: Take 1 tablet by mouth once daily Last Documented On 4 1:09PM By RYAN ALY ; [facility] Pregabalin 100 MG Oral Capsule 07/18/2023 Provider: MARYA KUMAR MD Diagnosis: Take 1 capsule by mouth twice daily Last Documented On 4 1:11PM By MARYA KUMAR MD ; [facility] Vitamin D (Ergocalciferol) 1 .25 MG (77987 UT) Oral Capsule 07/03/2023 Provider: MARYA Rose Diagnosis: TAKE 1 CAPSULE BY MOUTH EVERY OTHER WEEK Last Documented On 07/03/2023 12:52PM By Kizzy ALY ; [facility] Repatha SureClick 140 MG/ML Subcutaneous Solution Auto-injector 06/05/2023 Provider: MARYA Ruiz MD Diagnosis: as directed inject 140mg SQ every other week for cholesterol Last Documented On 4 11:58AM By MARYA KUMAR MD ; [facility] EQ Nicotine 14 MG/24HR Transdermal Patch 24 Hour 12/16/2022 Provider: MARYA GALDAMEZ MD Diagnosis: Nicotine depende nce, cigarettes, uncomplicated as directed on am and off pm Last Documented On 3 9:21AM By MARYA KUMAR MD ; [facility] Syringe 25G X 1 3 ML Miscellaneous 05/23/2022 Provi dean: MARYA KUMAR MD Diagnosis: USE WITH B12 SHOTS Last Documented On 05/23/2022 7:30AM By NADIR Franklin LPN ; [facility] Cyanocobalamin 1000 MCG/ML I njection Solution 05/20/2022 Provider: MARYA Rose Diagnosis: inject 1ml once a week for 6 weeks, then once a month Last Documented On 05/20/2022 5:17PM By Kizzy ALY ; [facility] Past Medications on file amLODIPine Besylate 10 MG Oral Tablet 08/29/2023 - 11/27/2023 Provider: MARYA ST MD Diagnosis: Take 1 tablet by mouth once daily Last Documented On 08/29/2023 5:14PM By Kizzy ALY ; [facility] Nortriptyline HCl 10 MG Oral Capsule 12/22/2022 - 01/21/2023 Provider: MARCEL HARDY PA-C Diagnosis: 1-2 cap po q HS PRN sleep. Last Documented On 3 4:10PM By MARCEL HARDY PA-C ; [facility] LORazepam 0.5 MG Oral Tablet 06/21/2021 - 06/28/2021 Ana caroder: MARYA GALDAEMZ MD Diagnosis: 1 every 6 hours as needed PRN Last Documented On 2 2:34PM By MARYA KUMAR MD ; [facility] Medications Administered Includes: Administered Medications from this encounter No Administered Medications Recorded Vital Signs Includes: Vital Signs from this encounter Vital Name 10/04/2023 08:52A Blood Pressure Sitting L 106/78 BP Cuff Size Regular Pulse Rate-Sitting (bpm) 96 Respiration Rate (breaths/min) 19 Height (in) 69.5 Weight (lb) 163 Body Mass Index 23.7 Body Surface Area 1.9 Oxygen Saturation (%) 98 Last Documented: On 10/04/2023 8:54AM ; [facility] Results Includes: Results discussed during this encounter No Results Recorded For Specified Dates History of Present Illness Includes: History of Present Illness from this encounter JIGNA HOLLIS is a 63 year old male. Source of patient information was patient. - Patient accompanied by the . - No chest pain or discomfort - No dyspnea - and No cough - No abdominal pain Lexy is a pleasant 63-year-old male who presents to our clinic for a check-up. He is accompanied by his today. The patient's reports that he has been experiencing dizziness, nearly blacking out at times, along with black spots in his vision. He has had several falls in the past couple of weeks, with his left leg notably weaker and deteriorating. Sleep disturbances have been prominent due to pain, resulting in daytime fatigue. Although his pain medications have been effective for his back pain, they have not provided relief for the pain in his leg. He is taking pregabalin 100 mg one tablet twice daily. He is taking Cyclobenzaprine 10 mg at bedtime, and it is helping. Additionally, he has had a diminished appetite, feeling nauseous and not consuming an adequate amount of water. His raised a concern regarding his blood pressure, which has been consistently low, prompting consideration for medication adjustment. Of note, he also has a history of hypertension for which he is taking amlodipine 10 mg once daily, and losartan 50 mg once daily. His blood pressure is low (systolic) in the clinic today at 106/78. He denies any chest pain, palpitations, or shortness of breath. His bowels are moving well. He has a history of diabetes. He is on Ozempic 0.50 mg once weekly with benefits. He has lost 9 lbs since his last visit which was in 07/2023, and he currently weighs 163 lbs. He does not monitor his blood sugar levels at home. He has a history of hyperlipidemia for which he is doing Repatha injections. 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 Not recovering from substance abuse 08/2023 Last Documented On 4 11:00PM ; [facility] Using marijuana 09/11/2023 Last Documented On 4 8:27AM ; [facility] Current smoker 1.5 PACKS 07/12/2023 Last Documented On 4 8:27AM ; [facility] Consuming 5 or more drinks per day None 03/31/2023 Last Documented On 4 8:27AM ; [facility] Number of times used recreat ional drug/ prescription drug for nonmedical reason. None 03/31/2023 Last Documented On 4 8:27AM ; [facility] Smoking packs of cigarettes per day Two packs a day 01/25/2023 Last Documented On 4 8:27AM ; [facility] Cigarette smoking: history 2 packs per d ay 02/15/2022 Last Documented On 4 8:27AM ; [facility] Current smoker for 38 years 02/15/2022 Last Documented On 4 8:27AM ; [facility] Smoking status : Current everyday smoker 2 ppd 08/13/2020 Last Documented On 4 8:27AM ; 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 Last Documented On 4 8:54AM ; [facility] explanation of plan : patien t/guardian states understanding of and agreement to treatment options and plan Last Documented On 4 8:32AM ; [facility] medication list reviewed Last Documented On 4 8:51AM ; [facility] use of tobacco assessment performed 1000F Last Documented On 4 8:54AM ; [facility] patient screened for future fall risk: documentation of any fall with injury in past year 1100F Last Documented On 4 8:54AM ; [facility] Reviewed & agreed to staff entries. Last Documented On 4 8:32AM ; [facility] Clinical summary provided to patient Last Documented On 4 8:32AM ; [facility] Surgical History Last Updated History of back surgery ...n lyly surgery 08/23/23 Dr. Liest Lopez @ [facility] : ~-Anterior cervical diskectomy C5-6 & C6-7 ~-Anterior cervical arthrodesis C5-6 & C6-7 w. i-factor ~-Anterior cervical interbody placement at C5-6 & C6-7 09/12/2023 Last Documented On 4 8:27AM ; [facility] History of cholecystectomy 2 005 - Re-operation shortly post operative for bleeding. ~LT KIDNEY STONE, STENT PLACED 12/[address] BROWN ~PROSTATE PARTIALLY REMOVED 08/202002/26/2021 Last Documented On 4 8:27AM ; [facility] History of tonsillectomy with adenoidect chiqui 1997 11/07/2011 Last Documented On 4 8:27AM ; [facility] Medical History Includes: Medical History addressed during this encounter Description Last Updated Has had a fall in the last 1 2 months. STEPPED IN HOLE AND FELL DOWN. ~ALSO A FALL STEPPING INTO TRUCK AND STEP WASN'T FASTENED 01/25/2023 Last Documented On 4 8:27AM ; [facility] Hypertension 01/25/2023 Last Documented On 4 8:27AM ; [facility] Taking medication for high blood pressur e 01/25/2023 Last Documented On 4 8:27AM ; [facility] Injection/Nerve blocks 01/25/2023 Last Documented On 4 8:27AM ; [facility] Moderate to severe pain 01/25/2023 Last Documented On 4 8:27AM ; [facility] Please list all illnesses/co nditions you have been diagnosed with: High blood pressure and diabetes 01/25/2023 Last Documented On 4 8:27AM ; [facility] Please list all surgeries: I have surgery. I had done [facility] in [place], [place] to remove part of my prostate. Can?t remember the date 01/25/2023 Last Documented On 4 8:27AM ; [facility] Last visit 12/16/2022 DR VENEGAS 3 Last Documented On 4 8:27AM ; [facility] Vaccine history June 29 2022 12/16/2022 Last Documented On 4 8:27AM ; [facility] History of colonoscopy fiberoptic was pe rformed 07/12/2021 repeat in 5 yrs 11/22/2022 Last Documented On 4 8:27AM ; [facility] Diabetes managed by insulin 09/29/2022 Last Documented On 4 8:27AM ; [facility] Long-term use of insulin 09/29/2022 Last Documented On 4 8:27AM ; [facility] History of nicotine dependence 2 Last Documented On 4 8:27AM ; [facility] History of diabetes mellitus 02/10/2020 Last Documented On 4 8:27AM ; [facility] History of hyperlipidemia 02/10/2020 Last Documented On 4 8:27AM ; [facility] History of hypertension 02/10/2020 Last Documented On 4 8:27AM ; [facility] History of thyroid disorder 02/10/2020 Last Documented On 4 8:27AM ; [facility] Taking OTC allergy medication decongesta nt 09/06/2016 Last Documented On 4 8:27AM ; [facility] History of esophageal reflux 11/07/2011 Last Documented On 4 8:27AM ; [facility] History of hiatal hernia 11/07/2011 Last Documented On 4 8:27AM ; [facility] History of irritable bowel syndrome 12/2011 Last Documented On 4 8:27AM ; [facility] carpal tunnel right hand 1997 11/07/2011 Last Documented On 4 8:27AM ; [facility] Exposure airborne chemical particulate 0 09/03/2008 Last Documented On 4 8:27AM ; [facility] Family History Includes: Family History addressed during this encounter Description Last Updated Fraternal history of family history of i schemic heart disease 01/25/2023 Last Documented On 4 8:27AM ; [facility] Fraternal history of stroke/paralysis Last Documented On 4 8:27AM ; [facility] Maternal history of Arthritis 01/25/2023 Last Documented On 4 8:27AM ; [facility] Maternal history of stroke/paralysis Last Documented On 4 8:27AM ; [facility] Paternal history of family history of is chemic heart disease 01/25/2023 Last Documented On 4 8:27AM ; [facility] Maternal history of systemic hypertension ~mom had many CVA ~sister age 70 CVA ~brother with CVA age 63 03/28/2022 Last Documented On 4 8:27AM ; [facility] Family history unchanged 01/13/2021 Last Documented On 4 8:27AM ; [facility] Maternal history of family history of ca ncer 12/07/2016 Last Documented On 4 8:27AM ; [facility] Paternal history of family history of he art disease 12/07/2016 Last Documented On 4 8:27AM ; [facility] Paternal history of diabetes mellitus FA THER, BROTHER 08/29/2014 Last Documented On 4 8:27AM ; [facility] Review of Systems Includes: Review of Systems from this encounter Systemic: No edema. Head: No headache. Cardiovascular: No chest pain or discomfort. Pulmonary: No shortness of breath. Neurological: Dizziness and ataxia. Psychological: Fear of falling. Past Medical: A fall in the past 6 months. A fall was four times in the past six (6) months. Mental Status Includes: Mental Status from this encounter Description The memory was unimpaired Judgement was not impaired Depression Functional Status Includes: Functional Status from this encounter No Functional Status Recorded Physical Exam Includes: Physical Exam from this encounter Allergies Includes: Active Allergies Substance Type Reaction Onset Date Resolved Date Statu s Trulicity Intolerance pancreatitis 06/27/2019 Acti ve Last Documented On 4 1:08PM ; [facility] traMADol HCl Intolerance Sleeplessness / Insomnia 08/13/2020 Active Last Documented On 4 1:08PM ; [facility] Statins Allergy 03/28/2022 Active Last Documented On 09/11/2023 1:08PM ; [facility] Note: leg pains HYDROcodone-Acetaminophe n Intolerance Sleeplessness / Insomnia 12/28/2018 Act tamie Last Documented On 4 1:08PM ; [facility] Encounters Encounter Provider Location Date Check-In Time Check-Out Time Diagnosis CHECK UP MARYA KUMAR MD [facility] 10/04/19 24 8:20AM 9:03AM Depression,Diab etes Mellitus Type 2,Essential Hypertension Benign,Hyperlip idemia,Hypothyr oidism,Dizzines s Insurance Includes: Active Insurance Policies Plan Name Member ID Group # Subscriber Relationship Effect tamie Dates 1 - [facility] [id number] LEXY HOLLIS S elf 2 - MEDICAID [facility] [id number] LEXY HOLLIS Self Clinical Notes Includes: Clinical Notes from this encounter * Progress note Date Encounter Last Documented by 10/04/2023 CHECK UP Last documented on 10/12/2023; 11:00 PM, MARYA KUMAR MD; [facility] Active Problems & Conditions - [...] - M54.30 - Sciatica Bilateral Chief Complaint The Chief Complaint is: Check up, states he has been dizzy, almost blacking out, he has black spots in his vision, he has been falling, he has had 4 falls in the last couple weeks, his left leg is worse and getting weaker, not sleeping at night due to the pain then is tired and wants to sleep all day. He's not eating more than a couple bites, nauseous. Not drinking enough water. His BP has been low so wonders about adjusting his meds. His pain meds are helping his back pain but not the leg pain. History of Present Illness LEXY HOLLIS is a 63 year old male. Source of patient information was patient. - Patient accompanied by the . - No chest pain or discomfort - No dyspnea - and No cough - No abdominal pain Lexy is a pleasant 63-year-old male who presents to our clinic for a check-up. He is accompanied by his today. The patient's reports that he has been experiencing dizziness, nearly blacking out at times, along with black spots in his vision. He has had several falls in the past couple of weeks, with his left leg notably weaker and deteriorating. Sleep disturbances have been prominent due to pain, resulting in daytime fatigue. Although his pain medications have been effective for his back pain, they have not provided relief for the pain in his leg. He is taking pregabalin 100 mg one tablet twice daily. He is taking Cyclobenzaprine 10 mg at bedtime, and it is helping. Additionally, he has had a diminished appetite, feeling nauseous and not consuming an adequate amount of water. His raised a concern regarding his blood pressure, which has been consistently low, prompting consideration for medication adjustment. Of note, he also has a history of hypertension for which he is taking amlodipine 10 mg once daily, and losartan 50 mg once daily. His blood pressure is low (systolic) in the clinic today at 106/78. He denies any chest pain, palpitations, or shortness of breath. His bowels are moving well. He has a history of diabetes. He is on Ozempic 0.50 mg once weekly with benefits. He has lost 9 lbs since his last visit which was in 07/2023, and he currently weighs 163 lbs. He does not monitor his blood sugar levels at home. He has a history of hyperlipidemia for which he is doing Repatha injections. Current Medication - amLODIPine Besylate 10 MG Oral Tablet [...] refills - Vitamin D (Ergocalciferol) 1.25 MG (99514 UT) Oral Capsule TAKE 1 CAPSULE BY MOUTH EVERY OTHER WEEK, 84 days, 1 refills Past Medical/Surgical History Reported: Injection/Nerve blocks, Please list all illnesses/conditions you have been diagnosed with: High blood pressure and diabetes, and Please list all surgeries: I have surgery. I had done [facility] in [place], [place] to remove part of my prostate. Can?t remember the date. Medical: Last visit 12/16/2022 DR VENEGAS, Vaccine history June 29 2022, orthopedic history Left Knee Score mild pain Moderate to severe pain, Diabetes Diabetes managed by insulin, and Hypertension. Medications: Taking medication for high blood pressure, medication for diabetes long-term use of insulin, and comw-gxu-gfaozgl allergy medication decongestant. Environmental Exposure: Exposure airborne chemical particulate. Physical [...] ...neck surgery 08/23/23 Dr. Liset Lopez @ [facility] : -Anterior cervical diskectomy C5-6 & C6-7 -Anterior cervical arthrodesis C5-6 & C6-7 w. i-factor -Anterior cervical interbody placement at C5-6 & C6-7 Social History Tobacco use: Current smoker 1.5 PACKS, for 38 years, cigarette smoking smoking packs of cigarettes per day Two packs a day, 2 packs per day, smoker, and smoking status: Current everyday smoker 2 ppd. Alcohol: Consuming 5 or more drinks per day None. Not recovering alcoholic. Drug Use: Using marijuana. Not recovering from substance abuse. Number of times used recreational drug/ prescription drug for nonmedical reason. None. 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 Allergies - HYDROcodone-Acetaminophen (Intolerance) Reaction: [...] age 64 Fraternal: Stroke/paralysis Ischemic heart disease Review Of Systems Systemic: No edema. Head: No headache. Cardiovascular: No chest pain or discomfort. Pulmonary: No shortness of breath. Neurological: Dizziness and ataxia. Psychological: Fear of falling. Past Medical: A fall in the past 6 months. A fall was four times in the past six (6) months. Physical Findings - Vitals taken 10/04/2023 08:52 am BP-Sitting L 106/78 mmHg 100 - 120/60 - 80 BP Cuff Size Regular Pulse Rate-Sitting 96 bpm 50 - 100 Respiration Rate 19 per min 18 - 26 Height 69.5 in 64 - 74 Weight 163 lbs 123 - 215 Body Mass Index 23.7 kg/m2 Body Surface Area 1.9 m2 Oxygen Saturation 98 % 93 - 100 General Appearance: - Alert. - Well developed. - Well nourished. - In no acute distress. Ears: Right Ear: Tympanic Membrane: - Normal. Left Ear: Tympanic Membrane: - Normal. Lymph Nodes: - Normal. Lungs: - Clear to auscultation. Cardiovascular: Heart Rate And Rhythm: - Normal. Murmurs: - No murmurs were heard. Edema: - Not present. Abdomen: Palpation: - No direct tenderness in the abdomen. Neurological: - Memory was unimpaired. - Judgement was not impaired. Psychiatric: - Mood was calm. Skin: - Normal. - Mucous membranes were not dry. Assessment - [R42 - Dizziness and giddiness] Dizziness - [I10 - Essential (primary) hypertension] Benign essential hypertension - [E78.5 - Hyperlipidemia, unspecified] Hyperlipidemia - [E03.9 - Hypothyroidism, unspecified] Hypothyroidism - [E11.9 - Type 2 diabetes mellitus without complications] Type 2 diabetes mellitus - [F32.9 - Major depressive disorder, single episode, unspecified] Depression Therapy - Reviewed & agreed to staff entries. - Medication list reviewed. - Education and instructions. - Intervention and counseling on cessation of tobacco use. - Clinical summary provided to patient. - Explanation of plan: patient/guardian states understanding of and agreement to treatment options and plan. Vaccinations - Received dose of influenza virus vaccine Plan StartCited - Cervicalgia Acetaminophen-Codeine 300-60 MG tablet TAKE 1 TO 2 TABLETS BY MOUTH 4 TIMES DAILY NEEDED, 8 days, 0 refills EndCited StartCited - Other Follow-up 2 months Cyclobenzaprine HCl 10 MG tablet One tablet at bed time, 30 days, 1 refills EndCited StartCited - Type 2 diabetes mellitus without complications Jardiance 25 MG tablet 1 tablet every morning, 90 days, 1 refills EndCited Stop doing Ozempic. he has lots too much weight Start taking Jardiance 25 mg, one tablet in the morning. Made aware; it makes urine a little sticky. (This is the replacement for Ozempic). Stop taking amlodipine, it can lower your blood pressure. BP too low Refills on medication are provided to the patient. We discussed lifestyle recommendations, including the importance of a healthy diet and exercising as tolerated. Maintain a healthy diet. Encouraged to walk in the form of exercise. Stay well hydrated. Have more water. Follow up as scheduled. IJulieta, scribing the following service on behalf of Dr. Mayte Montanez on 10/04/2023. This note has been reviewed by the provider before submitting. Practice Management Use of tobacco assessment performed and patient screened for future fall risk documentation of any fall with injury in past year. Care Team - LUCAS SALAS MD - Cardiovascular Disease - KALEB SILVA MD - Pain Management Health Reminders - Assess Blood Pressure satisfied 10/04/2023. - Assess BMI satisfied 10/04/2023. - Assess Tobacco Use satisfied 10/04/2023. - Blood Pressure Measurement satisfied 10/04/2023. - Colorectal Cancer Screening satisfied 07/12/2021. - Flu Shot satisfied 10/04/2023. - Smoking & Tobacco Cessation Intervention and Counseling satisfied 10/04/2023. User Defined 25 Patient education about home safety plans for prevention of falls: Patient completed a Fall risk assesment and was provided fall risk education materials.
--- OUTSIDE RECORDS SUMMARY | 2024-07-18 08:55 | XMS_ITS | Clinical Summary ---
Author Organization [facility] Address [address] [place] [address] Phone Care Team Providers Care Print Washer Name Role Phone STACY GREGORY, MARYA Unavailable [phone] LUCAS SALAS MD Unavailable [phone] HAYLEY FISCHER, MARCEL Walker Primary Care Provider [phone] KALEB SILVA MD Unavailable [phone] Reason for Visit and Chief Complaint REFERRAL Problems Includes: Problems addressed during this encounter and other active Problems All Visits Onset Date Resolved Date Provider Condition S tatus Sciatica Bilateral 02/25/2022 TAMICA Aragon Active Last Documented On 2 9:43AM ; [facility] Primary Insomnia 01/25/2022 MARYA KUMAR MD Active Last Documented On 2 2:57PM ; [facility] Arthralgia - Shoulder Region Bilateral 01/24/2018 MARYA KUMAR MD Active Last Documented On 01/24/2018 11:24AM ; [facility] Note: ---GIVE CORTISONE INJ ANTERIORLY Peripheral Neuropathy 10/18/2017 MARYA GALDAMEZ MD Active Last Documented On 8 9:12AM ; [facility] Personal history of colonic polyps 06/02/2017 Annie WEN DO Active Last Documented On 8 9:49AM ; [facility] Note: Unchanged Hypothyroidism 02/05/2016 MARYA KUMAR MD Active Last Documented On 6 4:34PM ; [facility] Depression 12/31/2009 MARYA KUMAR MD Act tamie Last Documented On 7 4:27PM ; [facility] Diabetes Mellitus Type 2 09/03/2008 MARYA DOLAN MD Active Last Documented On 0 11:25PM ; [facility] Hyperlipidemia 09/03/2008 MARYA KUMAR MD Active Last Documented On 1 11:12AM ; [facility] Essential Hypertension Benign 09/03/2008 MARYA KUMAR MD Active Last Documented On 0 11:25PM ; [facility] Plan of Treatment Pending Tests Order Diagnosis Results Due Ordering P rovider Lab TSH 04/19/23 MARYA GALDAMEZ MD Last Documented On 3 12:24PM ; [facility] Lab A1C HGB (GLYCO HEMOGLOBIN) 04/19/23 MARYA KUMAR MD Last Documented On 3 12:24PM ; [facility] Lab LIPID PANEL 04/19/23 MARYA LOPEZ MD Last Documented On 3 12:24PM ; [facility] Lab CMP 04/19/23 MARYA GALDAMEZ MD Last Documented On 3 12:24PM ; [facility] Lab PSA SCREEN 04/19/23 MARYA GALDAMEZ MD Last Documented On 3 12:24PM ; [facility] Lab Comp Metabolic Panel 07/30/23 CLIFFORD KUMAR MD Last Documented On 4 2:55PM ; [facility] Lab HgbA1C 07/30/23 MARYA GALDAMEZ MD Last Documented On 4 2:55PM ; [facility] Lab LIPID 07/30/23 MARYA GALDAMEZ MD Last Documented On 4 2:55PM ; [facility] Assessments Includes: Assessments from this encounter No Assessments Recorded Medical Equipment - Implanted Devices Includes: Current Devices No Medical Equipment Recorded Medications Includes: Medications discussed during this encounter and other current Medications Current Medications (continue as prescribed) Omeprazole 20 MG Oral Capsul e Delayed Release 10/14/2023 Provider: MARYA Rose Diagnosis: TAKE 1 CAPSULE BY MOUTH ONCE DAILY BEFORE NIGHT MEAL Last Documented On 4 12:09AM By MARYA KUMAR MD ; [facility] Jardiance 25 MG Oral Tablet 10/04/2023 Provider: MARYA Rose Diagnosis: Type 2 diabetes mellitus without complications 1 tablet every morning Last Documented On 4 9:18AM By MARYA KUMAR MD ; [facility] Cyclobenzaprine HCl 10 MG Oral Tablet 10/04/2023 Pro vider: MARYA KUMAR MD Diagnosis: One tablet at bed time Last Documented On 4 9:34AM By MARYA KUMAR MD ; [facility] Acetaminophen-Codeine 300-60 MG Oral Tablet 10/04/2023 Provider: MARYA Rose Diagnosis: Cervicalgia TAKE 1 TO 2 TABLETS BY MOUTH 4 TIMES DAILY NEEDED Last Documented On 4 1:09PM By RYAN ALY ; [facility] Ozempic (0.25 or 0.5 MG/DOSE) 2 MG/3ML Subcutaneous Solution Pen-injector 09/11/2023 Provider: MARYA Rose Diagnosis: Type 2 diabetes mellitus without complications 0.50 mg once weekly Last Documented On 4 1:26PM By MARYA KUMAR MD ; [facility] Losartan Potassium 50 MG Oral Tablet 08/01/2023 Prov ider: MARYA KUMAR MD Diagnosis: Take 1 tablet by mouth once daily Last Documented On 4 1:09PM By RYAN ALY ; [facility] Pregabalin 100 MG Oral Capsule 07/18/2023 Provider: MARYA KUMAR MD Diagnosis: Take 1 capsule by mouth twice daily Last Documented On 4 1:11PM By MARYA KUMAR MD ; [facility] Vitamin D (Ergocalciferol) 1 .25 MG (58297 UT) Oral Capsule 07/03/2023 Provider: MARYA Rose Diagnosis: TAKE 1 CAPSULE BY MOUTH EVERY OTHER WEEK Last Documented On 07/03/2023 12:52PM By Kizzy ALY ; [facility] Repatha SureClick 140 MG/ML Subcutaneous Solution Auto-injector 06/05/2023 Provider: MARYA Ruiz MD Diagnosis: as directed inject 140mg SQ every other week for cholesterol Last Documented On 4 11:58AM By MARYA KUMAR MD ; [facility] EQ Nicotine 14 MG/24HR Transdermal Patch 24 Hour 12/16/2022 Provider: MARYA GALDAMEZ MD Diagnosis: Nicotine depende nce, cigarettes, uncomplicated as directed on am and off pm Last Documented On 3 9:21AM By MARYA KUMAR MD ; [facility] Syringe 25G X 1 3 ML Miscellaneous 05/23/2022 Provi dean: MARYA KUMAR MD Diagnosis: USE WITH B12 SHOTS Last Documented On 05/23/2022 7:30AM By NADIR Franklin LPN ; [facility] Cyanocobalamin 1000 MCG/ML I njection Solution 05/20/2022 Provider: MARYA Rose Diagnosis: inject 1ml once a week for 6 weeks, then once a month Last Documented On 05/20/2022 5:17PM By Kizzy ALY ; [facility] Medications Administered Includes: Administered Medications from this encounter No Administered Medications Recorded Results Includes: Results discussed during this encounter No Results Recorded For Specified Dates History of Present Illness Includes: History of Present Illness from this encounter No History of Present Illness Recorded Social History No Social History Recorded - Smoking Status Unknown Medical History Includes: Medical History addressed during this encounter No Medical History Recorded Family History Includes: Family History addressed during this encounter No Family History Recorded Review of Systems Includes: Review of Systems [...] ve Last Documented On 4 1:08PM ; [facility] traMADol HCl Intolerance Sleeplessness / Insomnia 08/13/2020 Active Last Documented On 4 1:08PM ; [facility] Statins Allergy 03/28/2022 Active Last Documented On 09/11/2023 1:08PM ; [facility] Note: leg pains HYDROcodone-Acetaminophe n Intolerance Sleeplessness / Insomnia 12/28/2018 Act tamie Last Documented On 1:08PM ; [facility] Encounters Encounter Provider Location Date Check-In Time Check-Out Time Diagnosis REFERRAL MARYA KUMAR MD 09/14/2023 12:17PM 11:59PM Insurance Includes: Active Insurance Policies Plan Name Member ID Group # Subscriber Relationship Effect tamie Dates 1 - [facility] [id number] LEXY HOLLIS S lucia 2 - [employer] [facility] [id number] LEXY HOLLIS Self Clinical Notes Includes: Clinical Notes from this encounter No Clinical Notes Recorded
--- OUTSIDE RECORDS SUMMARY | 2024-07-18 08:55 | XMS_ITS | Clinical Summary ---
Author Organization [facility] Address [address] [place] [address] Phone Care Team Providers Care Clinical Pharmacist Name Role Phone STACY GREGORY, MARYA Unavailable [phone] LUCAS SALAS MD Unavailable [phone] HAYLEY FISCHER, MARCEL Walker Primary Care Provider [phone] KALEB SILVA MD Unavailable [phone] Reason for Visit and Chief Complaint The Chief Complaint is: pt would like a shot in his left hip Problems Includes: Problems addressed during this encounter and other active Problems All Visits Onset Date Resolved Date Provider Condition S tatus Sciatica Bilateral 02/25/2022 TAMICA Aragon Active Last Documented On 2 9:43AM ; [facility] Primary Insomnia 01/25/2022 MARYA KUMAR MD Active Last Documented On 2 2:57PM ; [facility] Arthralgia - Shoulder Region Bilateral 01/24/2018 MARYA KUMAR MD Active Last Documented On 01/24/2018 11:24AM ; [facility] Note: ---GIVE CORTISONE INJ ANTERIORLY Peripheral Neuropathy 10/18/2017 MARYA GALDAMEZ MD Active Last Documented On 8 9:12AM ; [facility] Personal history of colonic polyps 06/02/2017 Annie WEN DO Active Last Documented On 8 9:49AM ; [facility] Note: Unchanged Hypothyroidism 02/05/2016 MARYA KUMAR MD Active Last Documented On 6 4:34PM ; [facility] Depression 12/31/2009 MARYA KUMAR MD Act tamie Last Documented On 7 4:27PM ; [facility] Diabetes Mellitus Type 2 09/03/2008 MARYA DOLAN MD Active Last Documented On 0 11:25PM ; [facility] Hyperlipidemia 09/03/2008 MARYA KUMAR MD Active Last Documented On 1 11:12AM ; [facility] Essential Hypertension Benign 09/03/2008 MARYA KUMAR MD Active Last Documented On 0 11:25PM ; [facility] Plan of Treatment The patient received Depo medrol 80 mg in the clinic today. Ordered an MRI L/S spine. The hospital will call you to set up an appointment. Start doing Ozempic 0.50 mg once a week. - Last Documented On 09/12/2023 11:20PM ; [facility] Pending Tests Order Diagnosis Results Due Ordering P rovider Lab TSH 04/19/23 MARYA GALDAMEZ MD Last Documented On 3 12:24PM ; [facility] Lab A1C HGB (GLYCO HEMOGLOBIN) 04/19/23 MARYA KUMAR MD Last Documented On 3 12:24PM ; [facility] Lab LIPID PANEL 04/19/23 MARYA LOPEZ MD Last Documented On 3 12:24PM ; [facility] Lab CMP 04/19/23 MARYA GALDAMEZ MD Last Documented On 3 12:24PM ; [facility] Lab PSA SCREEN 04/19/23 MARYA GALDAMEZ MD Last Documented On 3 12:24PM ; [facility] Lab Comp Metabolic Panel 07/30/23 CLIFFORD KUMAR MD Last Documented On 4 2:55PM ; [facility] Lab HgbA1C 07/30/23 MARYA GALDAMEZ MD Last Documented On 4 2:55PM ; [facility] Lab LIPID 07/30/23 MARYA GALDAMEZ MD Last Documented On 4 2:55PM ; [facility] Injections Depo-Medrol 80MG Lumbago with sc iatica, left side 09/11/23 MARYA KUMAR MD Last Documented On 4 1:21PM ; [facility] Injections Theraputic Injection Lumbago wit h sciatica, left side 09/11/23 MARYA KUMAR MD Last Documented On 4 1:21PM ; [facility] Instructions to patient Intervention and counseling on cessation of tobacco use Last Documented On 4 1:09PM ; [facility] Education and Decision Aids were provided during visit for: Patient education about home safety plans for prevention of falls : Patient completed a Fall risk assesment and was provided fall risk education materials Last Documented On 4 1:09PM ; [facility] Assessments Includes: Assessments from this encounter Findings - [M54.42 - Lumbago with sciatica, left side] Lumbago with left-side sciatica - Last Documented On 09/12/2023 11:20PM ; [facility] Instructions Includes: Instructions from this encounter Instructions to patient Intervention and counseling on cessation of tobacco use Last Documented On 4 1:09PM ; [facility] Education and Decision Aids were provided during visit for: Patient education about home safety plans for prevention of falls : Patient completed a Fall risk assesment and was provided fall risk education materials Last Documented On 4 1:09PM ; [facility] Medical Equipment - Implanted Devices Includes: Current Devices No Medical Equipment Recorded Medications Includes: Medications discussed during this encounter and other current Medications New / Renewed during this visit MARYA KUMAR MD on 09/11/2023 Ozempic (0.25 or 0.5 MG/DOSE) 2 MG/3ML Subcutaneous Solution Pen-injector Provider: MARYA Rose 30 day supply: 3 mL, 3 refills Diagnosis: Type 2 diabetes mellitus without complications 0.50 mg once weekly Pharmacy: [facility], [address] - Last Documented On 4 1:26PM By MARYA KUMAR MD ; [facility] Current Medications (continue as prescribed) Omeprazole 20 MG Oral Capsul e Delayed Release 10/14/2023 Provider: MARYA Rose Diagnosis: TAKE 1 CAPSULE BY MOUTH ONCE DAILY BEFORE NIGHT MEAL Last Documented On 4 12:09AM By MARYA KUMAR MD ; [facility] Jardiance 25 MG Oral Tablet 10/04/2023 Provider: MARYA Rose Diagnosis: Type 2 diabetes mellitus without complications 1 tablet every morning Last Documented On 4 9:18AM By MARYA KUMAR MD ; [facility] Cyclobenzaprine HCl 10 MG Oral Tablet 10/04/2023 Pro vider: MARYA KUMAR MD Diagnosis: One tablet at bed time Last Documented On 4 9:34AM By MARYA KUMAR MD ; [facility] Acetaminophen-Codeine 300-60 MG Oral Tablet 10/04/2023 Provider: MARYA Rose Diagnosis: Cervicalgia TAKE 1 TO 2 TABLETS BY MOUTH 4 TIMES DAILY NEEDED Last Documented On 4 1:09PM By RYAN ALY ; [facility] Losartan Potassium 50 MG Oral Tablet 08/01/2023 Prov ider: MARYA KUMAR MD Diagnosis: Take 1 tablet by mouth once daily Last Documented On 4 1:09PM By RYAN ALY ; [facility] Pregabalin 100 MG Oral Capsule 07/18/2023 Provider: MARYA KUMAR MD Diagnosis: Take 1 capsule by mouth twice daily Last Documented On 4 1:11PM By MARYA KUMAR MD ; [facility] Vitamin D (Ergocalciferol) 1 .25 MG (53447 UT) Oral Capsule 07/03/2023 Provider: MARYA Rose Diagnosis: TAKE 1 CAPSULE BY MOUTH EVERY OTHER WEEK Last Documented On 07/03/2023 12:52PM By Kizzy ALY ; [facility] Repatha SureClick 140 MG/ML Subcutaneous Solution Auto-injector 06/05/2023 Provider: MARYA Ruiz MD Diagnosis: as directed inject 140mg SQ every other week for cholesterol Last Documented On 4 11:58AM By MARYA KUMAR MD ; [facility] EQ Nicotine 14 MG/24HR Transdermal Patch 24 Hour 12/16/2022 Provider: MARYA GALDAMEZ MD Diagnosis: Nicotine depende nce, cigarettes, uncomplicated as directed on am and off pm Last Documented On 3 9:21AM By MARYA KUMAR MD ; [facility] Syringe 25G X 1 3 ML Miscellaneous 05/23/2022 Provi dean: MARYA KUMAR MD Diagnosis: USE WITH B12 SHOTS Last Documented On 05/23/2022 7:30AM By NADIR Franklin LPN ; [facility] Cyanocobalamin 1000 MCG/ML I njection Solution 05/20/2022 Provider: MARYA Rose Diagnosis: inject 1ml once a week for 6 weeks, then once a month Last Documented On 05/20/2022 5:17PM By Kizzy ALY ; [facility] Past Medications on file amLODIPine Besylate 10 MG Oral Tablet 08/29/2023 - 11/27/2023 Provider: MARYA ST MD Diagnosis: Take 1 tablet by mouth once daily Last Documented On 08/29/2023 5:14PM By Kizzy ALY ; [facility] Nortriptyline HCl 10 MG Oral Capsule 12/22/2022 - 01/21/2023 Provider: MARCEL HARDY PA-C Diagnosis: 1-2 cap po q HS PRN sleep. Last Documented On 3 4:10PM By MARCEL HARDY PA-C ; [facility] LORazepam 0.5 MG Oral Tablet 06/21/2021 - 06/28/2021 P rovider: MARYA GALDAMEZ MD Diagnosis: 1 every 6 hours as needed PRN Last Documented On 2 2:34PM By MARYA KUMAR MD ; [facility] Medications Administered Includes: Administered Medications from this encounter No Administered Medications Recorded Vital Signs Includes: Vital Signs from this encounter Vital Name 09/11/2023 01:09P Blood Pressure Sitting R 98/60 BP Cuff Size Regular Pulse Rate-Sitting (bpm) 72 Respiration Rate (breaths/min) 18 Height (in) 69.5 Oxygen Saturation (%) 98 Last Documented: On 09/11/2023 1:09PM ; [facility] Results Includes: Results discussed during this encounter No Results Recorded For Specified Dates History of Present Illness Includes: History of Present Illness from this encounter HPI LEXY HOLLIS is a 63 year old male. - Allergy list reviewed - Medication list reviewed - Feeling fine in general Pt had cervical spine surgery 3 weeks ago and is feeling great as far as his neck is concerned. Today he complains of pain in his right glut that goes down his left thigh on the outside to his knee. It makes it hard ot move and walk. He previously had pain in his low back but not so much today, His surgery totally improved his neck pain and alxeandra shoulder pain. He is super happy with his results as is his . 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 None 03/31/2023 Last Documented On 4 1:08PM ; [facility] Smoking packs of cigarettes per day Two packs a day 01/25/2023 Last Documented On 4 1:08PM ; [facility] Cigarette smoking: history 2 packs per d ay 02/15/2022 Last Documented On 4 1:08PM ; [facility] Current smoker for 38 years 02/15/2022 Last Documented On 4 1:08PM ; [facility] Smoking status : Current everyday smoker 2 ppd 08/13/2020 Last Documented On 4 1:08PM ; [facility] Smoker 12/26/2019 Last Documented On 4 1:08PM ; [facility] Procedures and Surgical History Includes: Procedures from this encounter Procedures Code Diagnosis Performing Provider Service Location Service Date DEPO MEDROL 1 MG J1010 Lumbago with sciatica, left side MARYA KUMAR MD [facility] 09/11/2023 Last Documented On 4 12:48PM ; [facility] THERAPUTIC INJECTION 89188 Lumbago with sciatica, left side MARYA KUMAR MD [facility] 09/11/2023 Last Documented On 4 12:50PM ; [facility] DEPO MEDROL 80MG J1010 Lumbago with sciatica, left side MARYA KUMAR MD [facility] 09/11/2023 Last Documented On 4 12:50PM ; [facility] intervention and 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 Liset Lopez @ [facility] : ~-Anterior cervical diskectomy C5-6 & C6-7 ~-Anterior cervical arthrodesis C5-6 & C6-7 w. i-factor ~-Anterior cervical interbody placement at C5-6 & C6-7 09/12/2023 Last Documented On 4 11:20PM ; [facility] History of cholecystectomy 2 005 - Re-operation shortly post operative for bleeding. ~LT KIDNEY STONE, STENT PLACED 12/[address] BROWN ~PROSTATE PARTIALLY REMOVED 08/202002/26/2021 Last Documented On 4 1:08PM ; [facility] History of tonsillectomy with adenoidect chiqui 199611/07/2011 Last Documented On 4 1:08PM ; [facility] Medical History Includes: Medical History addressed during this encounter Description Last Updated Has had a fall in the last 1 2 months. STEPPED IN HOLE AND FELL DOWN. ~ALSO A FALL STEPPING INTO TRUCK AND STEP WASN'T FASTENED 01/25/2023 Last Documented On 4 1:08PM ; [facility] Blood pressure was high 01/25/2023 Last Documented On 4 1:08PM ; [facility] Hypertension 01/25/2023 Last Documented On 4 1:08PM ; [facility] Taking medication for high blood pressur e 01/25/2023 Last Documented On 4 1:08PM ; [facility] Injection/Nerve blocks 01/25/2023 Last Documented On 4 1:08PM ; [facility] Moderate to severe pain 01/25/2023 Last Documented On 4 1:08PM ; [facility] Please list all illnesses/co nditions you have been diagnosed with: High blood pressure and diabetes 01/25/2023 Last Documented On 4 1:08PM ; [facility] Please list all surgeries: I have surgery. I had done [facility] in [place], [place] to remove part of my prostate. Can?t remember the date 01/25/2023 Last Documented On 4 1:08PM ; [facility] Vaccine history June 29 2022 12/16/2022 Last Documented On 4 1:08PM ; [facility] History of colonoscopy fiberoptic was pe rformed 07/12/2021 repeat in 5 yrs 11/22/2022 Last Documented On 4 1:08PM ; [facility] Diabetes managed by insulin 09/29/2022 Last Documented On 4 1:08PM ; [facility] Insulin/carbohydrate ratio by home blood sugar check 09/29/2022 Last Documented On 4 1:08PM ; [facility] Long-term use of insulin 09/29/2022 Last Documented On 4 1:08PM ; [facility] History of nicotine dependence 2 Last Documented On 4 1:08PM ; [facility] History of diabetes mellitus 02/10/2020 Last Documented On 4 1:08PM ; [facility] History of hyperlipidemia 02/10/2020 Last Documented On 4 1:08PM ; [facility] History of hypertension 02/10/2020 Last Documented On 4 1:08PM ; [facility] History of thyroid disorder 02/10/2020 Last Documented On 4 1:08PM ; [facility] Taking OTC allergy medication decongesta nt 09/06/2016 Last Documented On 4 1:08PM ; [facility] History of esophageal reflux 11/07/2011 Last Documented On 4 1:08PM ; [facility] History of hiatal hernia 11/07/2011 Last Documented On 4 1:08PM ; [facility] History of irritable bowel syndrome 12/2011 Last Documented On 4 1:08PM ; [facility] carpal tunnel right hand 1997 11/07/2011 Last Documented On 4 1:08PM ; [facility] Exposure airborne chemical particulate 0 09/03/2008 Last Documented On 4 1:08PM ; [facility] Family History Includes: Family History addressed during this encounter Description Last Updated Fraternal history of family history of i schemic heart disease 01/25/2023 Last Documented On 4 1:08PM ; [facility] Fraternal history of stroke/paralysis Last Documented On 4 1:08PM ; [facility] Maternal history of Arthritis 01/25/2023 Last Documented On 4 1:08PM ; [facility] Maternal history of stroke/paralysis Last Documented On 4 1:08PM ; [facility] Paternal history of family history of is chemic heart disease 01/25/2023 Last Documented On 4 1:08PM ; [facility] Maternal history of systemic hypertension ~mom had many CVA ~sister age 70 CVA ~brother with CVA age 63 03/28/2022 Last Documented On 4 1:08PM ; [facility] Family history unchanged 01/13/2021 Last Documented On 4 1:08PM ; [facility] Maternal history of family history of ca ncer 12/07/2016 Last Documented On 4 1:08PM ; [facility] Paternal history of family history of he art disease 12/07/2016 Last Documented On 4 1:08PM ; [facility] Paternal history of diabetes mellitus FA THER, BROTHER 08/29/2014 Last Documented On 4 1:08PM ; [facility] Review of Systems Includes: Review of Systems from this encounter Neurological: No ataxia. Psychological: No fear of falling. Past Medical: A fall in the past 6 months. Mental Status Includes: Mental Status from this encounter Description The memory was unimpaired Judgement was not impaired Functional Status Includes: Functional Status from this encounter No Functional Status Recorded Physical Exam Includes: Physical Exam from this encounter Allergies Includes: Active Allergies Substance Type Reaction Onset Date Resolved Date Statu s Trulicity Intolerance pancreatitis 06/27/2019 Acti ve Last Documented On 4 1:08PM ; [facility] traMADol HCl Intolerance Sleeplessness / Insomnia 08/13/2020 Active Last Documented On 4 1:08PM ; [facility] Statins Allergy 03/28/2022 Active Last Documented On 09/11/2023 1:08PM ; [facility] Note: leg pains HYDROcodone-Acetaminophe n Intolerance Sleeplessness / Insomnia 12/28/2018 Act tamie Last Documented On 4 1:08PM ; [facility] Encounters Encounter Provider Location Date Check-In Time Check-Out Time Diagnosis INJECTION MARYA KUMAR MD [facility] 09/11/19 24 12:43PM 1:30PM Lumbago with Sciatica Left-side Insurance Includes: Active Insurance Policies Plan Name Member ID Group # Subscriber Relationship Effect tamie Dates 1 - [facility] [id number] LEXY russo 2 - MEDICAID [facility] [id number] LEXY HOLLIS Self Clinical Notes Includes: Clinical Notes from this encounter * Progress note Date Encounter Last Documented by 09/11/2023 INJECTION Last documented on 09/12/2023; 11:20 PM, MARYA KUMAR MD; [facility] Active Problems & Conditions - M25.519 - [...] Bilateral Chief Complaint The Chief Complaint is: Pt would like a shot in his left hip. History of Present Illness LEXY HOLLIS is a 63 year old male. - Allergy list reviewed - Medication list reviewed - Feeling fine in general Pt had cervical spine surgery 3 weeks ago and is feeling great as far as his neck is concerned. Today he complains of pain in his right glut that goes down his left thigh on the outside to his knee. It makes it hard ot move and walk. He previously had pain in his low back but not so much today, His surgery totally improved his neck pain and alexandra shoulder pain. He is super happy with his results as is his . 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 Current Medication - amLODIPine Besylate 10 MG [...] Pen-injector 0.50 mg once weekly, 30 days, 6 refills - Pregabalin 100 MG Oral Capsule Take 1 capsule by mouth twice daily, 90 days, 1 refills - Repatha SureClick 140 MG/ML Subcutaneous Solution Auto-injector as directed inject 140mg SQ every other week for cholesterol, 28 days, 5 refills - Syringe 25G X 1 3 ML Miscellaneous USE WITH B12 SHOTS, 90 days, 3 refills - Vitamin D (Ergocalciferol) 1.25 MG (97353 UT) Oral Capsule TAKE 1 CAPSULE BY MOUTH EVERY OTHER WEEK, 84 days, 1 refills Past Medical/Surgical History Reported: Injection/Nerve blocks, Please list all illnesses/conditions you have been diagnosed with: High blood pressure and diabetes, and Please list all surgeries: I have surgery. I had done [facility] in [place], [place] to remove part of my prostate. Can?t remember the date. Medical: Vaccine history June 29 2022, orthopedic history Left Knee Score mild pain Moderate to severe pain, Diabetes Diabetes managed by insulin, and Hypertension. Medications: Taking medication for high blood pressure, medication for diabetes long-term use of insulin, and psuy-bss-trzxvua allergy medication decongestant. Tests: Blood pressure was [...] ...neck surgery 08/23/23 Dr. Liset Lopez @ [facility] : -Anterior cervical diskectomy C5-6 & C6-7 [...] None. 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 Psychological: No fear of falling. Past Medical: A fall in the past 6 months. Physical Findings - Vitals taken 09/11/2023 01:09 pm BP-Sitting R 98/60 mmHg 100 - 120/60 - 80 BP Cuff Size Regular Pulse Rate-Sitting 72 bpm 50 - 100 Respiration Rate 18 per min 18 - 26 Height 69.5 in 64 - 74 Oxygen Saturation 98 % 93 - 100 General Appearance: - Alert. - Well nourished. - In no acute distress. Musculoskeletal System: Lumbar / Lumbosacral Spine: General/bilateral: - A straight-leg raising test was positive. - Lumbosacral spine exhibited no tenderness on palpation. Hips: General/bilateral: - No tenderness on palpation of the trochanteric bursa. - No pain was elicited by hip motion. Neurological: - Memory was unimpaired. - Judgement was not impaired. Gait And Stance: - Abnormal tender in left glut into left lateral thigh to left knee. obvious muscle atrophy of left gluteus brennon and some of left lateral thigh. Assessment - [M54.42 - Lumbago with sciatica, left side] Lumbago with left-side sciatica Therapy - Intervention and counseling on cessation of tobacco use. Plan StartCited - Lumbago with sciatica, left side Radiology @ [facility]/MRI: MRI L/S SPINE Instructions: cant do PT just had c spine surgery pain going down left leg and has muscle atrophy Injections: Depo-Medrol 80MG, Theraputic Injection EndCited StartCited - Other *Phone Call notify he is overdue for his low dose lung cancer screen. does he want us to get that set up? last one was done at [facility]. EndCited StartCited - Type 2 diabetes mellitus without complications Ozempic (0.25 or 0.5 MG/DOSE) 2 MG/3ML mL 0.50 mg once weekly, 30 days, 3 refills EndCited The patient received Depo medrol 80 mg in the clinic today. Ordered an MRI L/S spine. The hospital will call you to set up an appointment. Start doing Ozempic 0.50 mg once a week. Practice Management Use of tobacco assessment performed and patient screened for future fall risk documentation of any fall with injury in past year. Care Team - LUCAS SALAS MD - Cardiovascular Disease - KALEB SILVA MD - Pain Management Health Reminders - Assess Blood Pressure satisfied 09/11/2023. - Assess Tobacco Use satisfied 09/11/2023. - Blood Pressure Measurement satisfied 09/11/2023. - Colorectal Cancer Screening satisfied 07/12/2021. - Smoking & Tobacco Cessation Intervention and Counseling satisfied 09/11/2023. User Defined 25 Patient education about home safety plans for prevention of falls: Patient completed a Fall risk assesment and was provided fall risk education materials.
--- OUTSIDE RECORDS SUMMARY | 2024-07-18 08:56 | XMS_ITS | Encounter Summary ---
Author Organization [facility] Address [address] [place] [address] Phone Care Team Providers Care Audio Visual Collections Coordinator Name Role Phone Lisseth Hu MD Primary Care Provider [phone] Reason for Referral * Radiology Services (Routine) - Closed Specialty Diagnoses / Procedures Referred By Contac t Referred To Contact Radiology Diagnoses Pre-op testing Procedures EKG 12 LEAD Juni Hines MD [address] [place] [address] Phone: tel: fax: Referral ID Status Reason Start Date Expiration Date Visits Re quested Visits Authorized [id number] Closed 09/01/2020 1 1 Encounter Details Date Type Department Care Team (Late st Contact Info) Description 09/01/2020 Transcribe Orders [facility] Preop/Pacu II [address] [place] [id number] Juni Hines MD [address] [place] [address] Pre-op testing (Primary Dx) Social History Tobacco Use Types Packs/Day Years Used Date Smoking Tobacco: Every Day Cigarettes 2 30 Smokeless Tobacco: Never Alcohol Use Standard Drinks/Week Comments No 0 (1 standard drink = 0.6 oz pur e alcohol) Sexually Active Control Partners Comments Yes None Female Sex and Gender Information Value Date Recorded Sex Assigned at Male 06/14/2023 10:18 PM [employer] Legal Sex Male 12:31 AM CDT Gender Identity Male 06/14/2023 10:18 PM [employer] Sexual Orientation Not on file 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 No / Unsure 09/04/2020 5:00 AM CDT documented as of this encounter Plan of Treatment Not on file documented as of this encounter Results * EKG 12 LEAD (09/01/2020 12:09 PM CDT) Ventricular Rate BPM EXTERNAL EKG Atrial Rate BPM EXTERNAL EKG P-R Interval 150 ms EXTERNAL EKG QRS Duration 92 ms EXTERNAL EKG Q-T Duration 338 ms EXTERNAL EKG QTC CALCULATION 388 ms EXTERNAL EKG P [place] 53 degrees EXTERNAL EKG R [place] 58 degrees EXTERNAL EKG T [place] -2 degrees EXTERNAL EKG 09/01/2020 12:0 9 PM CDT Impressions EXTERNAL EKG - 09/02/2020 8:44 AM CDT Sinus rhythm Inferior T wave abnormality is nonspecific Comparison Summary: Descriptive differences only Summary: Borderline ECG Compared with:07/22/2019 4:22 PM Confirmed by Isidro Luna [id number] on 09/02/2020 8:44:55 AM Narrative Procedure Note Elda Felix MD - 09/02/2020 IMPRESSION: Sinus rhythm Inferior T wave abnormality is nonspecific Comparison Summary: Descriptive differences only Summary: Borderline ECG Compared with:07/22/2019 4:22 PM Confirmed by Isidro Luna [id number] on 09/02/2020 8:44:55 AM us Juni Hines MD IMG ECG ORDERABLES Final Resu lt EXTERNAL EKG documented in this encounter Visit Diagnoses Diagnosis Pre-op testing- Primary Preoperative examination, unspecified Pre-op testing Preoperative examination, unspecified documented in this encounter Additional Health Concerns Infection Onset Date Last Indicated Resolved Time COVID - 19 05/02/2021 05/02/2021 05/02/2021 6:36 PM [facility] COVID - 19 05/17/2024 05/17/2024 05/17/2024 9:50 AM [employer] Influenza 05/17/2024 05/17/2024 05/24/2024 12:1 6 AM [employer] documented as of this encounter Care Teams Audio Visual Collections Coordinator Relationship Specialty Start Date End Date Lisseth Hu MD [address] [place] [id number] PCP - General 03/07/16 documented as of this encounter
--- OUTSIDE RECORDS SUMMARY | 2024-07-18 08:56 | XMS_ITS | Clinical Summary ---
Author Organization [facility] Address [address] [place] [address] Care Team Providers Care Thread Grinder Name Role Phone Mayte-Lisseth Hall MD Primary Care Provider Allergies Active Allergy Reactions Criticality Noted Date Comments Dulaglutide Other (See comments) Low 06/27/2019 Trulicity caused pancreatitis. Hydrocodone-Acetaminoph en Other (See comments) Low 12/28/2018 jittery Medications pregabalin (LYRICA) 100 mg capsule Take 1 capsule (100 mg total) by mouth 2 (two) times a day 3 9 Active amLODIPine (NORVASC) 10 mg tablet Take 1 tablet (10 mg total) by mouth daily 3 9 Active losartan (COZAAR) 50 mg tablet Take 1 tablet (50 mg total) by mouth daily 1 9 Active BD Luer-Carie Syringe 3 mL 25 gauge x 1 syringe 3 Active omeprazole (PriLOSEC) 20 mg capsule TAKE 1 CAPSULE BY MOUTH ONCE DAILY BEFORE NIGHT MEAL 3 Active Jardiance 25 mg tablet Take 1 tablet (25 mg total) by mouth daily 4 Active acetaminophen-codei ne (TYLENOL with CODEINE #4) 300-60 mg per tablet Take 1 tablet by mouth every 6 (six) hours as needed for pain Active ondansetron ODT (ZOFRAN-ODT) 4 mg disintegrating tablet Take 1 tablet (4 mg total) by mouth every 8 (eight) hours as needed for nausea or vomiting Active cyclobenzaprine (FLEXERIL) 10 mg tablet Take 1 tablet (10 mg total) by mouth 3 (three) times a day as needed for muscle spasms Active Active Problems Problem Noted Date Diagnosed Date Hyponatremia 05/19/2024 Dehydration 05/19/2024 Hypokalemia 05/19/2024 Constipation 05/19/2024 Metabolic acidosis, increased anion gap 05/19/19 25 Pneumonia due to infectious organism, unspecified laterality, unspecified part of lung 05/18/2024 Influenza A 05/18/2024 Gastroesophageal reflux disease without esophagi tis 05/18/2024 Type 2 diabetes mellitus wit hout complication, without long-term current use of insulin 05/18/2024 Neuropathy 05/18/2024 Cervical vertebral fusion 05/18/2024 Chronic bilateral low back pain with bilateral s ciatica 08/03/2022 Insomnia secondary to chronic pain 08/03/2022 DDD (degenerative disc disease), lumbar 07/20/19 Lumbar facet arthropathy 07/19/2022 Lumbar radiculopathy 07/19/2022 Spinal stenosis, lumbar napoleon on, without neurogenic claudication 07/19/2022 Palpitations 04/07/2022 Hyperlipidemia associated with type 2 diabetes m ellitus 04/07/2022 Jaw pain 04/07/2022 Atypical chest pain 04/07/2022 LELE (obstructive sleep apnea) 12/26/2019 Hypertension associated with diabetes 05/26/2016 Overview (08/04/2016): Diabetes mellitus with coincident hypertension Tobacco abuse 05/26/2016 Overview (08/04/2016): Tobacco abuse Encounters for administrative purposes 7 Overview (08/04/2016): Encounter for 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 Transportation (DOT) examination for igor licence Hypothyroidism 05/26/2016 Overview (08/04/2016): Hypothyroidism, unspecified type Essential hypertension 05/26/2016 Overview (08/04/2016): Hypertension, essential Resolved Problems Problem Noted Date Diagnosed Date Resolved Date Body mass index 40+ - severely obese 05/26/2016 12/26/2019 Overview (08/04/2016): Morbid obesity with BMI of 40.0-44.9, adult Encounters Date Type Department Care Team Description 05/18/2024 4:48 AM ADJUNCT POLITICAL SCIENCE INSTRUCTOR - 05/20/2024 11:35 AM ADJUNCT POLITICAL SCIENCE INSTRUCTOR Hospital Encounter [facility] [address] [place] [address] Sen Bojorquez MD Hanson, Thomas S., MD Bross, Deborah L F D, MD Pneumonia due to infectious organism, unspecified laterality, unspecified part of lung (Primary Dx); Influenza A; Hyponatremia; Dehydration; Hypokalemia; Type 2 diabetes mellitus without complication, without long-term current use of insulin (HCC); Hypertension associated with diabetes (HCC); Neuropathy; Gastroesophageal reflux disease without esophagitis; LELE (obstructive sleep apnea); Cervical vertebral fusion Discharge Disposition: Discharge to home or self care 05/18/2024 4:29 AM ADJUNCT POLITICAL SCIENCE INSTRUCTOR - 05/18/2024 11:59 PM ADJUNCT POLITICAL SCIENCE INSTRUCTOR Hospital Encounter [facility] Emergency, Room R Discharge Disposition: Discharge to home or self care 05/10/2024 Orders Only [facility] [address] [place] [phone] Deion Vyas MD 05/09/2024 2:30 PM ADJUNCT POLITICAL SCIENCE INSTRUCTOR Office Visit [facility] Medical [facility] Cardiology [address] [place] [phone] Royal Picharod MD Hypertension associated with diabetes (HCC) (Primary Dx); Hyperlipidemia associated with type 2 diabetes mellitus (HCC); Palpitations; LELE (obstructive sleep apnea); Tobacco abuse from Last 3 Months Surgical History Surgery Date Site/Laterality Comments PROSTATE SURGERY CHOLECYSTECTOMY Medical History Medical History Date Comments Hx Other Medical HTn, DM, hypoth yroidism, allergies, sinusitis, s/p; Comments: MAF 05/26/2016 - Hypertension Diabetes mellitus (HCC) Family History Medical History Relation Name Comments Other Brother 1 Cabg x3; Liver disease Brother 2 Liver disease; Heart disease Father Cardiovascular disease; Other Father Bypass; Arthritis Other Diabetes Other Hypertension Other Stroke Other Relation Name Status Comments Brother 1 Brother 2 Father Other Social History Tobacco Use Types Packs/Day Years Used Date Smoking Tobacco: Heavy Smoker Tobacco Cessation:Ready to Q uit: Not Asked; Counseling Given: Not Answered Comments:Smoking History Packs/day: 2 Packs Alcohol Use Standard Drinks/Week Comments No 0 (1 standard drink = 0.6 oz pur e alcohol) PHQ-2 Answer Date Recorded PHQ-2 Total Score (If total score is 3 or more points, staff should administer the PHQ-9) 0 07/19/2022 Personal Safety Answer Date Recorded Have you ever been in or are you currently in a harmful physical or emotional relationship or is someone making you feel afraid or unsafe? Denies 05/18/2024 Sex and Gender Information Value Date Recorded Sex Assigned at Not on file Legal Sex Male 7:28 PM ADJUNCT POLITICAL SCIENCE INSTRUCTOR Gender Identity Not on file Sexual Orientation Not on file Obstetrics History Last Filed Vital Signs Vital Sign Reading Time Taken Comments Blood Pressure 117/62 05/20/2024 7:15 AM ADJUNCT POLITICAL SCIENCE INSTRUCTOR Pulse 80 05/20/2024 7:15 AM ADJUNCT POLITICAL SCIENCE INSTRUCTOR Temperature 36.2 C (97.1 F) 05/20/2024 7:15 AM ADJUNCT POLITICAL SCIENCE INSTRUCTOR Respiratory Rate 18 05/20/2024 7:15 AM ADJUNCT POLITICAL SCIENCE INSTRUCTOR Oxygen Saturation 90% 05/20/2024 7:15 AM ADJUNCT POLITICAL SCIENCE INSTRUCTOR Inhaled Oxygen Concentration - - Weight 74.8 kg (165 lb) 05/18/2024 4:50 AM ADJUNCT POLITICAL SCIENCE INSTRUCTOR Height 175.3 cm (5' 9 ) 05/18/2024 4:50 AM ADJUNCT POLITICAL SCIENCE INSTRUCTOR Body Mass Index 24.37 05/18/2024 4:50 AM ADJUNCT POLITICAL SCIENCE INSTRUCTOR Plan of Treatment Health Maintenance Due Date Last Done Comments Albumin Creatinine Ratio, Urine 1961 Colon Cancer Screening-Colonoscopy 1961 Hemoglobin A1C 1961 Hepatitis C Screening 1961 Prostate Cancer Screening-PSA 1961 Dilated Eye Exam 1961 Foot Exam 1961 DTaP/Tdap/Td Vaccine (1 - Tdap) 1972 Hepatitis B Screening 09/11/1979 Regular Well Visit/Exam 18-64 09/11/1979 Pneumococcal vaccine <65 (2 of 2 - PCV) 11/08/2018 11/08/2017 Depression Screening 07/20/2023 07/19/2022, 07/20/19 23 Influenza Vaccine (#1) 2023 9, 02/12/2018, 01/24/2018, Additional history exists Lipid Panel 07/28/2024 07/29/2023, 03/03, 2022, Additional history exists eGFR 05/20/2025 05/20/2024, 05/01, 05/18/2024, Additional history exists Zoster Vaccine Completed 02/12/2018, 11/13/2017 Goals Goal Patient Goal Type Associated Problems Recent Progress Patient-Stated? Author BH-Pain Behavioral Health Improving( 8:40 AM CDT) No Nancy Moran, RN Note: Patient will establish a comfort-function goal and identify the pain level that will allow the patient to perform desired activities and achieve an acceptable quality of life. Procedures Procedure Name Priority Date/Time Associated Diagnosis Comments EGFR Routine 05/20/2024 8:42 AM ADJUNCT POLITICAL SCIENCE INSTRUCTOR BASIC METABOLIC PANEL Routine 05/20/2024 8:42 AM ADJUNCT POLITICAL SCIENCE INSTRUCTOR POCT GLUCOSE DEVICE Routine 05/20/2024 8 :11 AM ADJUNCT POLITICAL SCIENCE INSTRUCTOR POCT GLUCOSE DEVICE Routine 05/20/2024 1 :57 AM ADJUNCT POLITICAL SCIENCE INSTRUCTOR POCT GLUCOSE DEVICE Routine 05/19/2024 9 :05 PM ADJUNCT POLITICAL SCIENCE INSTRUCTOR POTASSIUM LEVEL Timed 05/19/2024 5:06 PM ADJUNCT POLITICAL SCIENCE INSTRUCTOR POCT GLUCOSE DEVICE Routine 05/19/2024 4 :52 PM ADJUNCT POLITICAL SCIENCE INSTRUCTOR POCT GLUCOSE DEVICE Routine 05/19/2024 1 2:16 PM ADJUNCT POLITICAL SCIENCE INSTRUCTOR OPIATES CONFIRMATION MS, URINE Routine 05/19/2024 9:09 AM ADJUNCT POLITICAL SCIENCE INSTRUCTOR EGFR Routine 05/19/2024 9:09 AM ADJUNCT POLITICAL SCIENCE INSTRUCTOR DRUGS OF ABUSE SCREEN, URINE WITH REFLEX CONFIRMATION Routine 05/19/2024 9:09 AM ADJUNCT POLITICAL SCIENCE INSTRUCTOR ETHANOL Routine 05/19/2024 9:09 AM ADJUNCT POLITICAL SCIENCE INSTRUCTOR COMPREHENSIVE METABOLIC PANEL Routine 05/19/2024 9:09 AM ADJUNCT POLITICAL SCIENCE INSTRUCTOR POCT GLUCOSE DEVICE Routine 05/19/2024 7 :58 AM ADJUNCT POLITICAL SCIENCE INSTRUCTOR POCT GLUCOSE DEVICE Routine 05/19/2024 2 :00 AM ADJUNCT POLITICAL SCIENCE INSTRUCTOR POCT GLUCOSE DEVICE Routine 05/18/2024 8 :46 PM ADJUNCT POLITICAL SCIENCE INSTRUCTOR PROCALCITONIN Add-On 05/18/2024 6:33 PM ADJUNCT POLITICAL SCIENCE INSTRUCTOR POCT GLUCOSE DEVICE Routine 05/18/2024 4 :43 PM ADJUNCT POLITICAL SCIENCE INSTRUCTOR POCT GLUCOSE DEVICE Routine 05/18/2024 1 2:12 PM ADJUNCT POLITICAL SCIENCE INSTRUCTOR TROPONIN T HIGH-SENSITIVITY 6-HOUR Timed 05/18/2024 11:02 AM ADJUNCT POLITICAL SCIENCE INSTRUCTOR TROPONIN T HIGH-SENSITIVITY 4-HR Timed 05/18/2024 9:26 AM ADJUNCT POLITICAL SCIENCE INSTRUCTOR POCT GLUCOSE DEVICE Routine 05/18/2024 8 :32 AM ADJUNCT POLITICAL SCIENCE INSTRUCTOR SEPSIS LACTATE WITH REFLEX Timed 05/18/2024 7:21 AM ADJUNCT POLITICAL SCIENCE INSTRUCTOR TROPONIN T HIGH-SENSITIVITY 2-HOUR Timed 05/18/2024 7:21 AM ADJUNCT POLITICAL SCIENCE INSTRUCTOR PRO B-TYPE NATRIURETIC PEPTIDE STAT 05/18/2024 5:33 AM ADJUNCT POLITICAL SCIENCE INSTRUCTOR BLOOD CULTURE Routine 05/18/2024 5:33 AM ADJUNCT POLITICAL SCIENCE INSTRUCTOR XR CHEST 1 VIEW ED 05/18/2024 5:31 AM ADJUNCT POLITICAL SCIENCE INSTRUCTOR BLOOD CULTURE Routine 05/18/2024 5:25 AM ADJUNCT POLITICAL SCIENCE INSTRUCTOR BLOOD GAS, VENOUS STAT 05/18/2024 4:5 6 AM ADJUNCT POLITICAL SCIENCE INSTRUCTOR SEPSIS LACTATE WITH REFLEX STAT 05/18/2024 4:56 AM ADJUNCT POLITICAL SCIENCE INSTRUCTOR ECG 12-LEAD STAT 05/18/2024 4:55 AM ADJUNCT POLITICAL SCIENCE INSTRUCTOR DIFFERENTIAL AUTO STAT 05/18/2024 4:5 4 AM ADJUNCT POLITICAL SCIENCE INSTRUCTOR EGFR STAT 05/18/2024 4:54 AM ADJUNCT POLITICAL SCIENCE INSTRUCTOR TROPONIN T HIGH-SENSITIVITY SERIES (BASELINE, 2HR, 4HR, 6HR) STAT 05/18/2024 4:54 AM ADJUNCT POLITICAL SCIENCE INSTRUCTOR CBC WITH AUTO DIFFERENTIAL STAT 05/18/2024 4:54 AM ADJUNCT POLITICAL SCIENCE INSTRUCTOR COMPREHENSIVE METABOLIC PANEL STAT 05/18/2024 4:54 AM ADJUNCT POLITICAL SCIENCE INSTRUCTOR LIPID PANEL Routine 07/29/2023 3:57 PM CDT from Last 3 Months or Most Recently Relevant to Health Maintenance Results * eGFR (05/20/2024 8:42 AM ADJUNCT POLITICAL SCIENCE INSTRUCTOR) eGFR >90 >=60 mL/min/1. 73 m2 Comment: Interpretive Data Reference Interval Normal >/= 90 mL/min/1.73m2 Mildly decreased* 60 - 89 mL/min/1.73m2 Mildly to moderately decreased 45 - 59 mL/min/1.73m2 Moderately to severely decreased 30 - 44 mL/min/1.73m2 Severely decreased 15 - 29 mL/min/1.73m2 Kidney Failure < 15 mL/min/1.73m2 *Relative to young adult level Estimated glomerular filtration rate is determined by the 2020 CKD-EPI equation recommended by the National Kidney Foundation (A Unifying Approach to GFR Estimation: Recommendations of the NKF-ASK Task Force on Reassessing the Inclusion of Race in Diagnosing Kidney Disease, JASN 2020). The CKD-EPI equation should not be used for patients with unstable renal function and has not been validated in children and those over 70. Current interpretive data was last reviewed 2021. Blood 05/20/2024 8:42 AM ADJUNCT POLITICAL SCIENCE INSTRUCTOR 05/20/2024 8:47 AM ADJUNCT POLITICAL SCIENCE INSTRUCTOR Era Hugo MD LAB BLOOD ORDERABLES Kathy conrad Result [facility] ([place]) 1 [facility] 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 [address] * (ABNORMAL) Basic metabolic panel (05/20/2024 8:42 AM ADJUNCT POLITICAL SCIENCE INSTRUCTOR) Sodium 135 135 - 145 mmol/L Potassium, pl 3.5 3.3 - 4.9 mmol/L [facility]) Chloride 102 97 - 110 mmol/L [facility]) CO2 19(L) 22 - 32 mmol/L [facility]) Anion gap 15 2 - 15 mmol/L [facility] ([place]) BUN 11 6 - 25 mg/dL [facility] ([place]) Creatinine 0.59(L) 0.80 - 1.30 mg/dL [facility] ([place]) Glucose 103 70 - 199 mg/dL [facility] ([place]) Comment: Interpretive Data Fasting glucose >/= 126 mg/dl is diagnostic for diabetes. Fasting is defined as no caloric intake for at least 8 hours. Fasting glucose between 100 mg/dl to 125 mg/dl is diagnostic of prediabetes. In a patient with classic symptoms of hyperglycemia or hyperglycemic crisis, a random glucose >/= 200 mg/dl is diagnostic for diabetes. In the absence of unequivocal hyperglycemia, results should be confirmed by repeat testing. The classification and Diagnosis of Diabetes Diabetes Care 2021; 46: S19-S40. Current interpretive data was last revised 2022. Calcium 9.0 8.5 - 10.3 mg/dL [facility] ([place]) Blood 05/20/2024 8:42 AM ADJUNCT POLITICAL SCIENCE INSTRUCTOR 05/20/2024 8:47 AM ADJUNCT POLITICAL SCIENCE INSTRUCTOR Era Hugo MD LAB BLOOD ORDERABLES Kathy l Result [facility] ([place]) [address] [facility] [place] [address] * POCT glucose (05/20/2024 8:11 AM ADJUNCT POLITICAL SCIENCE INSTRUCTOR) Glucose, POC 119 70 - 199 mg/dL Blood 05/20/2024 8:11 AM ADJUNCT POLITICAL SCIENCE INSTRUCTOR 05/20/2024 8:11 AM ADJUNCT POLITICAL SCIENCE INSTRUCTOR Era Hugo MD LAB POCT ORDERABLES - DEV ICE Final Result [facility] ([place]) [address] [facility] [place] [address] * POCT glucose (05/20/2024 1:57 AM ADJUNCT POLITICAL SCIENCE INSTRUCTOR) Glucose, POC 106 70 - 199 mg/dL Blood 05/20/2024 1:57 AM ADJUNCT POLITICAL SCIENCE INSTRUCTOR 05/20/2024 1:57 AM ADJUNCT POLITICAL SCIENCE INSTRUCTOR Era Hugo MD LAB POCT ORDERABLES - DEV ICE Final Result [facility] ([place]) [address] [facility] [place] [address] * POCT glucose (05/19/2024 9:05 PM ADJUNCT POLITICAL SCIENCE INSTRUCTOR) Glucose, POC 111 70 - 199 mg/dL Blood 05/19/2024 9:05 PM ADJUNCT POLITICAL SCIENCE INSTRUCTOR 05/19/2024 9:05 PM ADJUNCT POLITICAL SCIENCE INSTRUCTOR Era Hugo MD LAB POCT ORDERABLES - DEV ICE Final Result [facility] ([place]) [address] [facility] [place] [address] * Potassium (05/19/2024 5:06 PM ADJUNCT POLITICAL SCIENCE INSTRUCTOR) Potassium, pl 3.6 3.3 - 4.9 mmol/L Blood 05/19/2024 5:06 PM ADJUNCT POLITICAL SCIENCE INSTRUCTOR 05/19/2024 5:10 PM ADJUNCT POLITICAL SCIENCE INSTRUCTOR Era Hugo MD LAB BLOOD ORDERABLES Kathy l Result Performing Organization Address [facility] Co de Phone Number [facility] ([place]) [address] [facility] [place] [address] * POCT glucose (05/19/2024 4:52 PM ADJUNCT POLITICAL SCIENCE INSTRUCTOR) Glucose, POC 103 70 - 199 mg/dL Blood 05/19/2024 4:52 PM ADJUNCT POLITICAL SCIENCE INSTRUCTOR 05/19/2024 4:52 PM ADJUNCT POLITICAL SCIENCE INSTRUCTOR Era Hugo MD LAB POCT ORDERABLES - DEV ICE Final Result Performing Organization Address [facility] de Phone Number [facility] ([place] [address] [facility] [place] [address] * POCT glucose (05/19/2024 12:16 PM ADJUNCT POLITICAL SCIENCE INSTRUCTOR) Glucose, POC 92 70 - 199 mg/dL Blood 05/19/2024 12:1 6 PM ADJUNCT POLITICAL SCIENCE INSTRUCTOR 05/19/2024 12:16 PM ADJUNCT POLITICAL SCIENCE INSTRUCTOR Era Hugo MD LAB POCT ORDERABLES - DEV ICE Final Result Performing Organization Address [facility] de Phone Number [facility] ([place]) [address] [facility] [place] [address] * (ABNORMAL) Drugs of Abuse Screen, Urine with Reflex Confirmation (05/19/2024 9:09 AM ADJUNCT POLITICAL SCIENCE INSTRUCTOR) Pathologist [facility] Amphetamine, ur Not Detected CutOff 500ng/mL Comment: Interpretive Data - Amphetamines: Samples containing greater than 500 ng/mL d-methamphetamine or other cross-reacting amphetamine compounds are reported as positive. Amphetamine immunoassays are subject to significant false positive rates due to cross-reactivity of non-amphetamine drugs. Confirmatory testing required for definitive results. Current Interpretive Data was last reviewed 2022. Barbiturates, ur Not Detected CutOff 200ng/mL [facility] ([place]) Comment: Interpretive Data - Barbiturates: Samples containing greater than 200 ng/mL secobarbital or other cross-reacting barbiturate compounds are reported as positive. False positive and false negative results are possible. Confirmatory testing required for definitive results. Current Interpretive Data was last reviewed 2022. Benzodiazepines, ur Not Detected CutOff 100ng/mL [facility] ([place]) Comment: Interpretive Data - Benzodiazepines: Samples containing greater than 100 ng/mL nordiazepam or other cross-reacting compounds are reported as positive. False positive and false negative results are possible. Confirmatory testing required for definitive results. Current Interpretive Data was last reviewed 2022. Cannabinoids, ur Screen Positive, presumptive (A) CutOff 50 ng/mL [facility] ([place]) Comment: Interpretive Data - Cannabinoids: Samples containing greater than 50 ng/mL delta-9 THC -COOH or other cross- reacting compounds are reported as positive. False positive and false negative results are possible. Confirmatory testing required for definitive results. Current Interpretive Data was last reviewed 2022. Cocaine, ur Not Detected CutOff 150ng/mL [facility] ([place]) Comment: Interpretive Data - Cocaine: Samples containing greater than 150 ng/mL benzoylecgonine or other cross- reacting compounds are reported as positive. False positive and false negative results are possible. Confirmatory testing required for definitive results. Current Interpretive Data was last reviewed 2022. Fentanyl, Ur Not Detected CutOff 5 ng/mL [facility] ([place]) Comment: Interpretive Data - Fentanyl: Samples containing greater than 5 ng/mL norfentanyl, fentanyl, or other cross-reacting fentanyl compounds are reported as positive. False positive and false negative results are possible. Confirmatory testing required for definitive results. Current Interpretive Data was last reviewed 2023. Methadone, ur Not Detected CutOff 300ng/mL [facility] ([place]) Comment: Interpretive Data - Methadone: Samples containing greater than 300 ng/mL d,l-methadone or other cross-reacting compounds are reported as positive. False positive and false negative results are possible. Confirmatory testing required for definitive results. Current Interpretive Data was last reviewed 2022. Opiates, ur Screen Positive, presumptive (A) CutOff 300ng/mL [facility] ([place]) Comment: Interpretive Data - Opiates: Samples containing greater than 300 ng/mL morphine or other cross-reacting compounds are reported as positive. False positive and false negative results are possible. Confirmatory testing required for definitive results. Current Interpretive Data was last reviewed 2022. Oxycodone, ur Not Detected CutOff 100ng/mL [facility] ([place]) Comment: Interpretive Data - Oxycodone: Samples containing greater than 100 ng/mL oxycodone or other cross-reacting compounds are reported as positive. False positive and false negative results are possible. Confirmatory testing required for definitive results. Current Interpretive Data was last reviewed 2022. Phencyclidine, ur Not Detected CutOff 25 ng/mL [facility] ([place]) Comment: Interpretive Data - Phencyclidine: Samples containing greater than 25 ng/mL phencyclidine or other cross-reacting compounds are reported as positive. False positive and false negative results are possible. Confirmatory testing required for definitive results. Current Interpretive Data was last reviewed 2022. Urine Creatinine 80 mg/dL [facility] ([place]) Comment: Interpretive Data Urine Creatinine: < 10 mg/dL is extremely dilute = or > 10 but < 20 mg/dL is dilute = or > 20 mg/dL is normal Current Interpretive Data was last revised on 2017. Urine 05/19/2024 9:09 AM ADJUNCT POLITICAL SCIENCE INSTRUCTOR 05/19/2024 9:19 AM ADJUNCT POLITICAL SCIENCE INSTRUCTOR Narrative [facility] ([place]) - 05/19/2024 9:50 AM ADJUNCT POLITICAL SCIENCE INSTRUCTOR Drug of Abuse screening is performed by immunoassay for medical purposes only. This is not to be used for Pain Management purposes. If Detected, confirmation testing will be performed for Amphetamines, Cocaine, Fentanyl, Methadone, Opiates, Oxycodone or Phencyclidine. us Era Hugo MD LAB URINE ORDERABLES Kathy conrad Result [facility] ([place]) 1 [facility] 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 [address] * eGFR (05/19/2024 9:09 AM ADJUNCT POLITICAL SCIENCE INSTRUCTOR) eGFR >90 >=60 mL/min/1. 73 m2 Comment: Interpretive Data Reference Interval Normal >/= 90 mL/min/1.73m2 Mildly decreased* 60 - 89 mL/min/1.73m2 Mildly to moderately decreased 45 - 59 mL/min/1.73m2 Moderately to severely decreased 30 - 44 mL/min/1.73m2 Severely decreased 15 - 29 mL/min/1.73m2 Kidney Failure < 15 mL/min/1.73m2 *Relative to young adult level Estimated glomerular filtration rate is determined by the 2020 CKD-EPI equation recommended by the National Kidney Foundation (A Unifying Approach to GFR Estimation: Recommendations of the NKF-ASK Task Force on Reassessing the Inclusion of Race in Diagnosing Kidney Disease, JASN 2020). The CKD-EPI equation should not be used for patients with unstable renal function and has not been validated in children and those over 70. Current interpretive data was last reviewed 2021. Blood 05/19/2024 9:09 AM ADJUNCT POLITICAL SCIENCE INSTRUCTOR 05/19/2024 9:34 AM ADJUNCT POLITICAL SCIENCE INSTRUCTOR us Era Hugo MD LAB BLOOD ORDERABLES Kathy conrad Result [facility] ([place]) 1 [facility] 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 [address] * (ABNORMAL) Opiates Confirmation, Urine (05/19/2024 9:09 AM ADJUNCT POLITICAL SCIENCE INSTRUCTOR) Codeine Conf, Ur Confirmed Positive(A) CutOff 50 ng/mL Comment:Testing performed by : [facility], [address] [place] [address] 6- Acetylmorphine Conf, Ur Does Not Confirm CutOff 10 ng/mL [facility] ([place]) Comment:Testing performed by : [facility], [address] [place] [address] Hydrocodone Conf, Ur Does Not Confirm CutOff 50 ng/mL [facility] ([place]) Comment:Testing performed by : [facility], [address] [place]., [address] Morphine Conf, Ur Does Not Confirm CutOff 50 ng/mL [facility] ([place]) Comment:Testing performed by : [facility], [address] [place]., [address] Hydromorphone Conf, Ur Does Not Confirm CutOff 50 ng/mL [facility] ([place]) Comment: Interpretive Data This test detects the presence or absence of drug compounds using LC Tandem mass spectrometry and is not intended to assess compliance with prescribed medications. While this test is highly specific, false positive and false negative results may occur in very rare circumstances. Contact the laboratory for consultation, if needed. Performance characteristics were determined by the [facility] in a manner consistent with CLIA requirement and has not been cleared or approved by the U.S. Food and Drug Administration. Current interpretive data was last revised 2020. Testing performed by: [facility], [address] [place]., [address] Urine 05/19/2024 9:09 AM ADJUNCT POLITICAL SCIENCE INSTRUCTOR 05/20/2024 9:48 AM ADJUNCT POLITICAL SCIENCE INSTRUCTOR Era Hugo MD LAB URINE ORDERABLES Kathy l Result [facility] ([place]) 1 [facility] 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 [address] * Ethanol (05/19/2024 9:09 AM ADJUNCT POLITICAL SCIENCE INSTRUCTOR) Ethanol <10 <=10 mg/dL Comment: Interpretive Data Legal limit of intoxication > or = 80 mg/dL Levels > or = 400 mg/dL are potentially TOXIC. Current interpretive data was last revised on 2018. Blood 05/19/2024 9:09 AM ADJUNCT POLITICAL SCIENCE INSTRUCTOR 05/19/2024 9:34 AM ADJUNCT POLITICAL SCIENCE INSTRUCTOR Era Hguo MD LAB BLOOD ORDERABLES Kathy l Result [facility] ([place]) [facility] 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 [address] * (ABNORMAL) Comprehensive metabolic panel (05/19/2024 9:09 AM ADJUNCT POLITICAL SCIENCE INSTRUCTOR) Sodium 133(L) 135 - 145 mmol/L Potassium, pl 3.2(L) 3.3 - 4.9 mmol/L [facility]) Chloride 100 97 - 110 mmol/L [facility] ([place]) CO2 21(L) 22 - 32 mmol/L [facility]) Anion gap 12 2 - 15 mmol/L [facility] ([place]) BUN 13 6 - 25 mg/dL [facility] ([place]) Creatinine 0.58(L) 0.80 - 1.30 mg/dL [facility] ([place]) Glucose 162 70 - 199 mg/dL [facility] ([place]) Comment: Interpretive Data Fasting glucose >/= 126 mg/dl is diagnostic for diabetes. Fasting is defined as no caloric intake for at least 8 hours. Fasting glucose between 100 mg/dl to 125 mg/dl is diagnostic of prediabetes. In a patient with classic symptoms of hyperglycemia or hyperglycemic crisis, a random glucose >/= 200 mg/dl is diagnostic for diabetes. In the absence of unequivocal hyperglycemia, results should be confirmed by repeat testing. The classification and Diagnosis of Diabetes Diabetes Care 2021; 46: S19-S40. Current interpretive data was last revised 2022. Calcium 8.3(L) 8.5 - 10.3 mg/dL [facility]) Bilirubin, total 0.3 0.1 - 1.2 mg/dL [facility] ([place]) Protein, pl 6.0(L) 6.5 - 8.5 g/dL [facility]) Albumin 3.4(L) 3.5 - 5.0 g/dL [facility]) Alk phos 87 40 - 130 Units/L [facility]) ALT 49 7 - 55 Units/L [facility]) AST 75(H) 10 - 50 Units/L [facility] ([place]) Blood 05/19/2024 9:09 AM ADJUNCT POLITICAL SCIENCE INSTRUCTOR 05/19/2024 9:34 AM ADJUNCT POLITICAL SCIENCE INSTRUCTOR us Era Hugo MD LAB BLOOD ORDERABLES Kathy l Result [facility] ([place]) 1 [facility] [place] [address] * POCT glucose (05/19/2024 7:58 AM ADJUNCT POLITICAL SCIENCE INSTRUCTOR) Glucose, POC 97 70 - 199 mg/dL Blood 05/19/2024 7:58 AM ADJUNCT POLITICAL SCIENCE INSTRUCTOR 05/19/2024 7:58 AM ADJUNCT POLITICAL SCIENCE INSTRUCTOR us Era Hugo MD LAB POCT ORDERABLES - DEV ICE Final Result Performing Organization Address [facility]/ZIP Co de Phone Number [facility] ([place]) 1 [facility] [place] [address] * POCT glucose (05/19/2024 2:00 AM ADJUNCT POLITICAL SCIENCE INSTRUCTOR) Glucose, POC 134 70 - 199 mg/dL Blood 05/19/2024 2:00 AM ADJUNCT POLITICAL SCIENCE INSTRUCTOR 05/19/2024 2:00 AM ADJUNCT POLITICAL SCIENCE INSTRUCTOR Era Hugo MD LAB POCT ORDERABLES - DEV ICE Final Result Performing Organization Address City/[facility]/ZIP Co de Phone Number [facility] ([place]) 1 [facility] [place] [address] * POCT glucose (05/18/2024 8:46 PM ADJUNCT POLITICAL SCIENCE INSTRUCTOR) Glucose, POC 143 70 - 199 mg/dL Blood 05/18/2024 8:46 PM ADJUNCT POLITICAL SCIENCE INSTRUCTOR 05/18/2024 8:46 PM ADJUNCT POLITICAL SCIENCE INSTRUCTOR Era Hugo MD LAB POCT ORDERABLES - DEV ICE Final Result [facility] ([place]) 1 [facility] [place] [address] * Procalcitonin (05/18/2024 6:33 PM ADJUNCT POLITICAL SCIENCE INSTRUCTOR) Procalcitonin 0.17 <=0.25 ng/mL Comment:Testing performed by : [facility], [facility], [place]., [address] Blood 05/18/2024 6:33 PM ADJUNCT POLITICAL SCIENCE INSTRUCTOR 05/19/2024 3:09 PM ADJUNCT POLITICAL SCIENCE INSTRUCTOR Era Hugo MD LAB BLOOD ORDERABLES Kathy l Result [facility] ([place]) [address] [place] [address] * POCT glucose (05/18/2024 4:43 PM ADJUNCT POLITICAL SCIENCE INSTRUCTOR) Glucose, POC 133 70 - 199 mg/dL Blood 05/18/2024 4:43 PM ADJUNCT POLITICAL SCIENCE INSTRUCTOR 05/18/2024 4:43 PM ADJUNCT POLITICAL SCIENCE INSTRUCTOR Era Hugo MD LAB POCT ORDERABLES - DEV ICE Final Result [facility] ([place]) 1 [facility] [place] [address] * POCT glucose (05/18/2024 12:12 PM ADJUNCT POLITICAL SCIENCE INSTRUCTOR) Glucose, POC 145 70 - 199 mg/dL Blood 05/18/2024 12:1 2 PM ADJUNCT POLITICAL SCIENCE INSTRUCTOR 05/18/2024 12:12 PM ADJUNCT POLITICAL SCIENCE INSTRUCTOR Era Hugo MD LAB POCT ORDERABLES - DEV ICE Final Result [facility] ([place]) 1 [facility] [place] [address] * (ABNORMAL) Troponin T high-sensitivity 6-hour (05/18/2024 11:02 AM ADJUNCT POLITICAL SCIENCE INSTRUCTOR) Trop T hs 24(H) <=22 ng/L Comment: Interpretive Data For further hscTnT resources including the diagnostic algorithm and an aid in interpretation, copy and paste this link: https://nrl.[employer].org/show/hsTrop Current Interpretive Data last revised 2020. Trop T hs delta 3 ng/L [facility] ([place]) Trop T hs interp Insignificant [facility] ([place]) Blood 05/18/2024 11:0 2 AM ADJUNCT POLITICAL SCIENCE INSTRUCTOR 05/18/2024 11:06 AM ADJUNCT POLITICAL SCIENCE INSTRUCTOR us Sen Bojorquez MD LAB BLOOD ORDERABLES Final Re sult Performing Organization Address [facility]/ZIP Co de Phone Number [facility] ([place]) [address] [place] [address] [email or web address] [address] * Troponin T high-sensitivity 4-hour (05/18/2024 9:26 AM ADJUNCT POLITICAL SCIENCE INSTRUCTOR) Trop T hs 22 <=22 ng/L Comment: Interpretive Data For further hscTnT resources including the diagnostic algorithm and an aid in interpretation, copy and paste this link: https://nrl.[employer].org/show/hsTrop Current Interpretive Data last revised 2020. Trop T hs delta 1 ng/L [facility] ([place]) Trop T hs interp Insignificant [facility] ([place]) Blood 05/18/2024 9:26 AM ADJUNCT POLITICAL SCIENCE INSTRUCTOR 05/18/2024 9:28 AM ADJUNCT POLITICAL SCIENCE INSTRUCTOR us Sen Bojorquez MD LAB BLOOD ORDERABLES Final Re sult [facility] ([place]) 1 [facility] [place] [address] * POCT glucose (05/18/2024 8:32 AM ADJUNCT POLITICAL SCIENCE INSTRUCTOR) Glucose, POC 158 70 - 199 mg/dL Blood 05/18/2024 8:32 AM ADJUNCT POLITICAL SCIENCE INSTRUCTOR 05/18/2024 8:32 AM ADJUNCT POLITICAL SCIENCE INSTRUCTOR us Era Hugo MD LAB POCT ORDERABLES - DEV ICE Final Result [facility] ([place]) 1 [facility] [place] [address] * Troponin T high-sensitivity 2-hour (05/18/2024 7:21 AM ADJUNCT POLITICAL SCIENCE INSTRUCTOR) Trop T hs 17 <=22 ng/L Comment: Interpretive Data For further hscTnT resources including the diagnostic algorithm and an aid in interpretation, copy and paste this link: https://nrl.testcatalog.org/show/hsTrop Current Interpretive Data last revised 2020. Trop T hs delta -4 ng/L [facility] ([place]) Trop T hs interp Insignificant [facility] ([place]) Blood 05/18/2024 7:21 AM ADJUNCT POLITICAL SCIENCE INSTRUCTOR 05/18/2024 7:24 AM ADJUNCT POLITICAL SCIENCE INSTRUCTOR us Sen Bojorquez MD LAB BLOOD ORDERABLES Final Re sult Performing Organization Address [facility]/ZIP Co de Phone Number [facility] ([place]) 1 [facility] [place] [address] * Sepsis Lactate w/ Reflex (05/18/2024 7:21 AM ADJUNCT POLITICAL SCIENCE INSTRUCTOR) Sepsis Lactate 1.9 0.7 - 2.0 mmol/L Blood 05/18/2024 7:21 AM ADJUNCT POLITICAL SCIENCE INSTRUCTOR 05/18/2024 7:24 AM ADJUNCT POLITICAL SCIENCE INSTRUCTOR us Sen Bojorquez MD LAB BLOOD ORDERABLES Final Re sult [facility] ([place]) 1 [facility] 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 [address] * (ABNORMAL) Pro B-type natriuretic peptide (05/18/2024 5:33 AM ADJUNCT POLITICAL SCIENCE INSTRUCTOR) NT-proBNP 404(H) <=300 pg/mL Comment: Interpretive Comments: A. Dyspnea in Acute Care Setting All Ages: < 300 pg/ml, acute heart failure unlikely. < 50 yrs: 300 - 450 pg/ml, further investigation warranted. > 450 pg/ml, acute heart failure likely. 50 - 74 yrs: 300 - 900 pg/ml, further investigation warranted. > 900 pg/ml, acute heart failure likely . > or = 75 yrs: 450 - 1800 pg/ml, further investigation warranted. > 1800 pg/ml, acute heart failure likely. B. Non-acute Setting < 75 yrs < 125 pg/ml, rules out heart failure. > or = 125 pg/ml, further investigation warranted. > or = 75 yrs < 450 pg/ml, rules out heart failure. > or = 450 pg/ml, further investigation warranted. - Knowledge of each individual patient's NT-proBNP range may be more useful than using similar cut-points for every patient. Please note that marked elevations in NT-proBNP levels may be observed in state other than Left Ventricular Congestive Failure, including: acute coronary syndromes, right heart strain/failure (including pulmonary embolism and cor pulmonale), critical illness, renal failure, as well as advanced age. - References: 1. Donte JL et.al. Eur Heart J. 2006:27:330-337. 2. Danae RW, Trever AGUIRRE. J. AM Stefanie Cardiol: Cardiovasc Imag. 2009;2: 216- 225. Interpretive Data Last Revised Date: 2017. Blood 05/18/2024 5:33 AM ADJUNCT POLITICAL SCIENCE INSTRUCTOR 05/18/2024 5:37 AM ADJUNCT POLITICAL SCIENCE INSTRUCTOR us Sen Bojorquez MD LAB BLOOD ORDERABLES Final Re sult [facility] [place]) [address] [employer] [facility] 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 [address] * Blood culture Blood (05/18/2024 5:33 AM ADJUNCT POLITICAL SCIENCE INSTRUCTOR) Report Final Report: No growth Comment:Testing performed by : [facility], [address] [place]., [address] Blood 05/18/2024 5:33 AM ADJUNCT POLITICAL SCIENCE INSTRUCTOR 05/18/2024 10:19 AM ADJUNCT POLITICAL SCIENCE INSTRUCTOR Narrative [facility] ([place]) - 05/22/2024 12:00 PM ADJUNCT POLITICAL SCIENCE INSTRUCTOR From a different site than #1. Collection->Peripheral 1. Blood cultures are incubated for 4 days on a continuously monitored blood culture system. The first report of a negative culture is issued within 24 hours of receipt of the specimen in the laboratory. 2. Positive culture results are reported as soon as they are detected. 3. The most important factor for detection of microbes in the setting of bloodstream infection is the volume of blood submitted for culture. Failure to collect an optimal blood volume can result in false negative blood cultures. 4. For pediatric patients, the recommended blood volume to collect follows a weight based strategy. See the electronic test catalog for collection instructions. 5. For positive blood cultures, a rapid molecular test may be performed for organism identification using the louise e[employer]lex blood culture identification panel for gram positive (BCID-GP) and gram negative (BCID-GN) organisms. This nucleic acid amplification test detects microbial DNA in positive blood culture broth. This assay has been cleared by the [place] Food and Drug Administration and its performance characteristics have been verified by the [facility]. For questions about this culture, contact the Microbiology Laboratory at [phone]. Interpretive data was last revised on 24. Sen Bojorquez MD LAB MICROBIOLOGY - GENERAL OR DERABLES Final Result [facility] ([place]) 1 [facility] 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 [address] * XR Chest 1 Vw Portable (if patient condition/safety warrant portable) (05/18/2024 5:31 AM ADJUNCT POLITICAL SCIENCE INSTRUCTOR) Anatomical Region Laterality Modality Body, Chest N/A Computed Radiogr aphy 05/18/2024 5:34 AM ADJUNCT POLITICAL SCIENCE INSTRUCTOR Narrative 05/18/2024 5:37 AM ADJUNCT POLITICAL SCIENCE INSTRUCTOR EXAM DESCRIPTION: XR CHEST 1 VIEW REASON FOR STUDY: Shortness of breath C/o SOB after testing positive for Influenza and taking his first dose of tamaflu. Smoker Diabetic Hypertension TECHNIQUE: 1 radiographic view(s) of the chest. COMPARISON: 01/30/2012 FINDINGS: LUNGS: Patchy bibasilar airspace opacities are noted. This could represent atelectasis or pneumonia in the appropriate clinical setting.. No pleural effusion or pneumothorax. HEART/MEDIASTINUM: Normal heart size and cardiomediastinal contours LINES/TUBES: None. BONES: Cervical fusion is partially visualized. No acute displaced fracture or aggressive bone lesion is seen. IMPRESSION: Patchy bibasilar airspace opacities, which could represent atelectasis or pneumonia in the appropriate clinical setting. THIS IS AN ELECTRONICALLY VERIFIED FINAL REPORT 05/18/2024 5:37 AM - Electronically signed by Aubrey Peterson M.D. MZ: RAE Report ID: [id number] Reading Location: [place] [address] Procedure Note Aubrey Peterson MD - 05/18/2024 EXAM DESCRIPTION: XR CHEST 1 VIEW REASON FOR STUDY: Shortness of breath C/o SOB after testing positive for Influenza and taking his first dose of tamaflu. Smoker Diabetic Hypertension TECHNIQUE: 1 radiographic view(s) of the chest. COMPARISON: 01/30/2012 FINDINGS: LUNGS: Patchy bibasilar airspace opacities are noted. This couldrepresent atelectasis or pneumonia in the appropriate clinical setting.. No pleural effusion or pneumothorax. HEART/MEDIASTINUM: Normal heart size and cardiomediastinal contours LINES/TUBES: None. BONES: Cervical fusion is partially visualized. No acute displacedfracture or aggressive bone lesion is seen. IMPRESSION: Patchy bibasilar airspace opacities, which could represent atelectasis or pneumonia in the appropriate clinical setting. THIS IS AN ELECTRONICALLY VERIFIED FINAL REPORT 05/18/2024 5:37 AM - Electronically signed by Aubrey Peterson M.D. MZ: RAE Report ID: [id number] Reading Location: [place] [address] Sen Bojorquez MD IMG XR PROCEDURES Final Resul t * Blood culture Blood (05/18/2024 5:25 AM ADJUNCT POLITICAL SCIENCE INSTRUCTOR) Report Final Report: No growth Comment:Testing performed by : [facility], 1 [place] [address] Blood 05/18/2024 5:25 AM ADJUNCT POLITICAL SCIENCE INSTRUCTOR 05/18/2024 10:18 AM ADJUNCT POLITICAL SCIENCE INSTRUCTOR Narrative [facility] ([place]) - 05/22/2024 12:00 PM ADJUNCT POLITICAL SCIENCE INSTRUCTOR Received only aerobic blood culture bottle. Collection->Peripheral 1. Blood cultures are incubated for 4 days on a continuously monitored blood culture system. The first report of a negative culture is issued within 24 hours of receipt of the specimen in the laboratory. 2. Positive culture results are reported as soon as they are detected. 3. The most important factor for detection of microbes in the setting of bloodstream infection is the volume of blood submitted for culture. Failure to collect an optimal blood volume can result in false negative blood cultures. 4. For pediatric patients, the recommended blood volume to collect follows a weight based strategy. See the electronic test catalog for collection instructions. 5. For positive blood cultures, a rapid molecular test may be performed for organism identification using the louise ePlex blood culture identification panel for gram positive (BCID-GP) and gram negative (BCID-GN) organisms. This nucleic acid amplification test detects microbial DNA in positive blood culture broth. This assay has been cleared by the [place] Food and Drug Administration and its performance characteristics have been verified by the [facility]. For questions about this culture, contact the Microbiology Laboratory at [phone]. Interpretive data was last revised on 24. Sen Bojorquez MD LAB MICROBIOLOGY - GENERAL OR DERABLES Final Result [facility] ([place]) 1 [facility] 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 [address] * (ABNORMAL) Sepsis Lactate w/ Reflex (05/18/2024 4:56 AM ADJUNCT POLITICAL SCIENCE INSTRUCTOR) Sepsis Lactate 2.7(H) 0.7 - 2.0 mmol/L Blood 05/18/2024 4:56 AM ADJUNCT POLITICAL SCIENCE INSTRUCTOR 05/18/2024 4:59 AM ADJUNCT POLITICAL SCIENCE INSTRUCTOR Sen Bojorquez MD LAB BLOOD ORDERABLES Final Re sult Performing Organization Address [facility] Co de Phone Number [facility] MARTINO ([place]) 1 [facility] [place] [address] * (ABNORMAL) Blood gas, venous (05/18/2024 4:56 AM ADJUNCT POLITICAL SCIENCE INSTRUCTOR) pH, Venous 7.29(L) 7.32 - 7.43 PCO2, Venous 39(L) 40 - 50 mmHg [facility] ([place]) PO2, Venous 38 mmHg [facility] ([place]) Comment: Interpretive Data No reference range established. Current interpretive data was last revised 2017. HCO3 Venous, Calculated 18(L) 20 - 30 mmol/L [facility] ([place]) BE, venous -7 mmol/L [facility] ([place]) Comment: Interpretive Data No Reference Range Established Current Interpretive Data was last revised on 2017. Blood 05/18/2024 4:56 AM ADJUNCT POLITICAL SCIENCE INSTRUCTOR 05/18/2024 5:19 AM ADJUNCT POLITICAL SCIENCE INSTRUCTOR us Sen Bojorquez MD LAB BLOOD ORDERABLES Final Re sult Performing Organization Address [facility] Co de Phone Number [facility]YL MARTINO ([place]) 1 [facility] [place] [address] * ECG 12 lead (05/18/2024 4:55 AM ADJUNCT POLITICAL SCIENCE INSTRUCTOR) 05/18/2024 4:55 AM ADJUNCT POLITICAL SCIENCE INSTRUCTOR Narrative [facility] - 05/18/2024 10:58 AM ADJUNCT POLITICAL SCIENCE INSTRUCTOR Vent Rate: 117 bpm RR Interval: 511 msec MD Interval: 152 msec QRS Duration: 81 msec QT Interval: 315 msec QTC Interval: 384 msec P-R-T [place]: 52 - 52 - 35 degrees IMPRESSION: SINUS TACHYCARDIA POSSIBLE LEFT ATRIAL ENLARGEMENT [-0.1mV P-WAVE IN V1/V2] SEPTAL MYOCARDIAL INFARCTION , OF INDETERMINATE AGE [40+ ms Q WAVE IN V1/V2] ABNORMAL ECG Electronically Signed By: Maciej Davis MD us Sen Bojorquez MD ECG ORDERABLES Final Result [facility] * Troponin T high-sensitivity series (baseline, 2hr, 4hr, 6hr) (05/18/2024 4:54 AM ADJUNCT POLITICAL SCIENCE INSTRUCTOR) Trop T hs 21 <=22 ng/L Comment: Interpretive Data For further hscTnT resources including the diagnostic algorithm and an aid in interpretation, copy and paste this link: https://nrl.testcatalog.org/show/hsTrop Current Interpretive Data last revised 2020. Blood 05/18/2024 4:54 AM ADJUNCT POLITICAL SCIENCE INSTRUCTOR 05/18/2024 4:59 AM ADJUNCT POLITICAL SCIENCE INSTRUCTOR us Sen Bojorquez MD LAB BLOOD ORDERABLES Final Re sult [facility] [place]) [address] [place] [address] 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 Laboratories [place] [id number] * eGFR (05/18/2024 4:54 AM ADJUNCT POLITICAL SCIENCE INSTRUCTOR) eGFR >90 >=60 mL/min/1. 73 m2 Comment: Interpretive Data Reference Interval Normal >/= 90 mL/min/1.73m2 Mildly decreased* 60 - 89 mL/min/1.73m2 Mildly to moderately decreased 45 - 59 mL/min/1.73m2 Moderately to severely decreased 30 - 44 mL/min/1.73m2 Severely decreased 15 - 29 mL/min/1.73m2 Kidney Failure < 15 mL/min/1.73m2 *Relative to young adult level Estimated glomerular filtration rate is determined by the 2020 CKD-EPI equation recommended by the National Kidney Foundation (A Unifying Approach to GFR Estimation: Recommendations of the NKF-ASK Task Force on Reassessing the Inclusion of Race in Diagnosing Kidney Disease, JASN 2020). The CKD-EPI equation should not be used for patients with unstable renal function and has not been validated in children and those over 70. Current interpretive data was last reviewed 2021. Blood 05/18/2024 4:54 AM ADJUNCT POLITICAL SCIENCE INSTRUCTOR 05/18/2024 4:59 AM ADJUNCT POLITICAL SCIENCE INSTRUCTOR us Sen Bojorquez MD LAB BLOOD ORDERABLES Final Re sult [facility] ([place]) 1 [facility] 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 [address] * (ABNORMAL) Differential, auto (05/18/2024 4:54 AM ADJUNCT POLITICAL SCIENCE INSTRUCTOR) Neutrophil abs 5.1 1.5 - 6.5 K/cumm Imm gran abs 0.0 0.0 - 0.1 K/cumm [facility] ([place]) Lymphocyte abs 0.3(L) 0.8 - 3.3 K/cumm [facility] ([place]) Monocyte abs 0.8 0.2 - 0.8 K/cumm [facility] ([place]) Eosinophil abs 0.0 0.0 - 0.5 K/cumm [facility] ([place]) Basophil abs 0.1 0.0 - 0.1 K/cumm [facility] ([place]) Neutrophil pct 81.5 % [facility] ([place]) Comment: Consistent with previous result Interpretive Data Percent cell count reference ranges are not reported, since discordance with absolute values may lead to misinterpretation of CBC data. Current Interpretive Data was last revised on 2017. Imm gran pct 0.3 % [facility] ([place]) Comment: Interpretive Data Percent cell count reference ranges are not reported, since discordance with absolute values may lead to misinterpretation of CBC data. Current Interpretive Data was last revised on 2017. Lymphocyte pct 5.1 % [facility] ([place]) Comment: Interpretive Data Percent cell count reference ranges are not reported, since discordance with absolute values may lead to misinterpretation of CBC data. Current Interpretive Data was last revised on 2017. Monocyte pct 11.9 % [facility] ([place]) Comment: Interpretive Data Percent cell count reference ranges are not reported, since discordance with absolute values may lead to misinterpretation of CBC data. Current Interpretive Data was last revised on 2017. Eosinophil pct 0.2 % [facility] ([place]) Comment: Interpretive Data Percent cell count reference ranges are not reported, since discordance with absolute values may lead to misinterpretation of CBC data. Current Interpretive Data was last revised on 2017. Basophil pct 1.0 % [facility] ([place]) Comment: Interpretive Data Percent cell count reference ranges are not reported, since discordance with absolute values may lead to misinterpretation of CBC data. Current Interpretive Data was last revised on 2017. Blood 05/18/2024 4:54 AM ADJUNCT POLITICAL SCIENCE INSTRUCTOR 05/18/2024 4:59 AM ADJUNCT POLITICAL SCIENCE INSTRUCTOR us Sen Bojorquez MD LAB BLOOD ORDERABLES Final Re sult [facility] ([place]) 1 [facility] 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 [address] * CBC with auto differential (05/18/2024 4:54 AM ADJUNCT POLITICAL SCIENCE INSTRUCTOR) WBC 6.3 3.8 - 9.9 K/cumm Hgb 16.5 13.0 - 17.5 g/dL [facility] ([place]) Hct 49.9 38.9 - 50.3 % [facility] ([place]) Plt 181 150 - 400 K/cumm [facility] ([place]) MPV 9.4 9.1 - 12.3 fL [facility] ([place]) RBC 5.71 4.30 - 5.80 M/cumm [facility] ([place]) MCV 87.4 81.3 - 96.4 fL [facility]) MCH 28.9 27.1 - 33.3 pg [facility] ([place]) MCHC 33.1 32.3 - 35.7 g/dL [facility] ([place]) RDW CV 13.0 11.1 - 14.9 % [facility] ([place]) RDW SD 41.6 35.7 - 48.1 fL [facility] ([place]) NRBC abs 0.00 0.00 - 0.01 K/cumm [facility] ([place]) Blood 05/18/2024 4:54 AM ADJUNCT POLITICAL SCIENCE INSTRUCTOR 05/18/2024 4:59 AM ADJUNCT POLITICAL SCIENCE INSTRUCTOR us Sen Bojorquez MD LAB BLOOD ORDERABLES Final Re sult [facility] ([place]) [facility] 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 [address] * (ABNORMAL) Comprehensive metabolic panel (05/18/2024 4:54 AM ADJUNCT POLITICAL SCIENCE INSTRUCTOR) Sodium 133(L) 135 - 145 mmol/L Potassium, pl 3.5 3.3 - 4.9 mmol/L [facility] ([place]) Chloride 92(L) 97 - 110 mmol/L [facility]) CO2 17(L) 22 - 32 mmol/L [facility] ([place]) Anion gap 24(H) 2 - 15 mmol/L [facility] ([place]) BUN 12 6 - 25 mg/dL [facility] ([place]) Creatinine 0.64(L) 0.80 - 1.30 mg/dL [facility] ([place]) Glucose 171 70 - 199 mg/dL [facility] ([place]) Comment: Interpretive Data Fasting glucose >/= 126 mg/dl is diagnostic for diabetes. Fasting is defined as no caloric intake for at least 8 hours. Fasting glucose between 100 mg/dl to 125 mg/dl is diagnostic of prediabetes. In a patient with classic symptoms of hyperglycemia or hyperglycemic crisis, a random glucose >/= 200 mg/dl is diagnostic for diabetes. In the absence of unequivocal hyperglycemia, results should be confirmed by repeat testing. The classification and Diagnosis of Diabetes Diabetes Care 202; 46: S19-S40. Current interpretive data was last revised 2022. Calcium 9.2 8.5 - 10.3 mg/dL [facility] Bilirubin, total 0.6 0.1 - 1.2 mg/dL [facility] Protein, pl 8.1 6.5 - 8.5 g/dL [facility] Albumin 4.6 3.5 - 5.0 g/dL [facility] Alk phos 130 40 - 130 Units/L [facility] ALT 32 7 - 55 Units/L [facility] AST 70(H) 10 - 50 Units/L [facility] Blood 05/18/2024 4:54 AM ADJUNCT POLITICAL SCIENCE INSTRUCTOR 05/18/2024 4:59 AM ADJUNCT POLITICAL SCIENCE INSTRUCTOR us Sen Bojorquez MD LAB BLOOD ORDERABLES Final Re sult [facility]) [facility] 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 [address] * Lipid panel (07/29/2023 3:57 PM CDT) SCRIBED Cholesterol, Total 85 <200 [facility] SCRIB[facility] HDL 37 >40 [facility] S[facility] LDL 20 <100 [facility] S[facility] Triglycerides 227 <150 [facility] Blood us Historical Provider LAB BLOOD ORDERABLES Edit ed Result - Final [facility] from Last 3 Months or Most Recently Relevant to Health Maintenance Insurance [facility] CHO[facility] HMO/PPO Address: [facility] [address] [place] [address] Advance Directives For more information, please contact: [phone] * LIMITED - No CPR (Latest Code Status on File) Date Activated Date Inactivated Comments 05/19/2024 2:56 PM 05/20/2024 3:35 PM Question Answer Comments Provide aggressive medical m anagement before a full cardiopulmonary arrest occurs. Use antibiotics, IV Fluids, and medical treatment unless specifically selected below: No intubationNo non-invasive ventilationNo cardioversionNo internal / external pacemakerNo vasopressors * LIMITED - No CPR Date Activated Date Inactivated Comments 05/19/2024 10:30 AM 05/19/2024 2:56 PM Question Answer Comments Provide aggressive medical m anagement before a full cardiopulmonary arrest occurs. Use antibiotics, IV Fluids, and medical treatment unless specifically selected below: No intubationNo cardioversionNo internal / external pacemakerNo vasopressors * Full Code Date Activated Date Inactivated Comments 05/18/2024 7:46 AM 05/19/2024 10:30 AM Care Teams Thread Grinder Relationship Specialty Start Date End Date Lisseth Lund MD [address] [place] [id number] PCP - General 07/18/16
--- OUTSIDE RECORDS SUMMARY | 2024-07-18 08:56 | XMS_ITS | Encounter Summary ---
Author Organization [facility] Address [address] [place] [address] Phone Care Team Providers Care Torch Straightener Name Role Phone Lisseth Hu MD Primary Care Provider [phone] Encounter Details Date Type Department Care Team (Late st Contact Info) Description 08/14/2020 Transcribe Orders [facility] Preop/Pacu II [address] [place] [address] Ochoa Vicente, DO [address] [place] [address] Pre-op testing (Primary Dx) Social History Tobacco Use Types Packs/Day Years Used Date Smoking Tobacco: Every Day Cigarettes 2 30 Smokeless Tobacco: Never Alcohol Use Standard Drinks/Week Comments No 0 (1 standard drink = 0.6 oz pur e alcohol) Sexually Active Control Partners Comments Yes None Female Sex and Gender Information Value Date Recorded Sex Assigned at Male 06/14/2023 10:18 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
--- OUTSIDE RECORDS SUMMARY | 2024-07-18 08:56 | XMS_ITS | Referral Summary ---
Author Organization [facility] Address [address] [place] [address] Care Team Providers Care Route Salesperson Name Role Phone Lisseth Lund MD Primary Care Provider Encounters Date Type Department Care Team Description 05/18/2024 4:48 AM SHARE DAIRY FARMER - 05/20/2024 11:35 AM SHARE DAIRY FARMER Hospital Encounter [facility] IMU [address] [place] [address] Sen Bojorquez MD Hanson, Thomas S., MD [...] home or self care 05/18/2024 4:29 AM SHARE DAIRY FARMER - 05/18/2024 11:59 PM SHARE DAIRY FARMER Hospital Encounter [facility] Emergency, Room R Discharge Disposition: Discharge to home or self care 05/10/2024 Orders Only [facility] Cardiology [address] [place] [address] Deion Vyas MD 05/09/2024 2:30 PM SHARE DAIRY FARMER Office Visit [facility] Medical [facility] Cardiology [address] [place] [address] Royal Pichardo MD Hypertension associated with diabetes (HCC) (Primary Dx); Hyperlipidemia associated with type 2 diabetes mellitus (HCC); Palpitations; LELE (obstructive sleep apnea); Tobacco abuse from Last 3 Months Allergies Active Allergy Reactions Criticality Noted Date [...] Morbid obesity with BMI of 40.0-44.9, adult Social History Tobacco Use Types Packs/Day Years [...] on file Legal Sex Male 7:28 PM SHARE DAIRY FARMER Gender Identity Not on file Sexual Orientation Not on file Last Filed Vital Signs Vital Sign Reading Time Taken Comments Blood Pressure 117/62 05/20/2024 7:15 AM SHARE DAIRY FARMER Pulse 80 05/20/2024 7:15 AM SHARE DAIRY FARMER Temperature 36.2 C (97.1 F) 05/20/2024 7:15 AM SHARE DAIRY FARMER Respiratory Rate 18 05/20/2024 7:15 AM SHARE DAIRY FARMER Oxygen Saturation 90% 05/20/2024 7:15 AM SHARE DAIRY FARMER Inhaled Oxygen Concentration - - Weight 74.8 kg (165 lb) 05/18/2024 4:50 AM SHARE DAIRY FARMER Height 175.3 cm (5' 9 ) 05/18/2024 4:50 AM SHARE DAIRY FARMER Body Mass Index 24.37 05/18/2024 4:50 AM SHARE DAIRY FARMER Plan of Treatment Not on file Goals Goal Patient Goal Type Associated Problems Recent Progress Patient-Stated? Author BH-Pain Behavioral Health Improving( 8:40 AM CDT) Nancy Talamantes, [place] Note: Patient will establish a comfort-function goal and identify the pain level that will allow the patient to perform desired activities and achieve an acceptable quality of life. Procedures Procedure Name Priority Date/Time Associated Diagnosis Comments EGFR Routine 05/20/2024 8:42 AM SHARE DAIRY FARMER BASIC METABOLIC PANEL Routine 05/20/2024 8:42 AM SHARE DAIRY FARMER POCT GLUCOSE DEVICE Routine 05/20/2024 8 :11 AM SHARE DAIRY FARMER POCT GLUCOSE DEVICE Routine 05/20/2024 1 :57 AM SHARE DAIRY FARMER POCT GLUCOSE DEVICE Routine 05/19/2024 9 :05 PM SHARE DAIRY FARMER POTASSIUM LEVEL Timed 05/19/2024 5:06 PM SHARE DAIRY FARMER POCT GLUCOSE DEVICE Routine 05/19/2024 4 :52 PM SHARE DAIRY FARMER POCT GLUCOSE DEVICE Routine 05/19/2024 1 2:16 PM SHARE DAIRY FARMER OPIATES CONFIRMATION MS, URINE Routine 05/19/2024 9:09 AM SHARE DAIRY FARMER EGFR Routine 05/19/2024 9:09 AM SHARE DAIRY FARMER DRUGS OF ABUSE SCREEN, URINE WITH REFLEX CONFIRMATION Routine 05/19/2024 9:09 AM SHARE DAIRY FARMER ETHANOL Routine 05/19/2024 9:09 AM SHARE DAIRY FARMER COMPREHENSIVE METABOLIC PANEL Routine 05/19/2024 9:09 AM SHARE DAIRY FARMER POCT GLUCOSE DEVICE Routine 05/19/2024 7 :58 AM SHARE DAIRY FARMER POCT GLUCOSE DEVICE Routine 05/19/2024 2 :00 AM SHARE DAIRY FARMER POCT GLUCOSE DEVICE Routine 05/18/2024 8 :46 PM SHARE DAIRY FARMER PROCALCITONIN Add-On 05/18/2024 6:33 PM SHARE DAIRY FARMER POCT GLUCOSE DEVICE Routine 05/18/2024 4 :43 PM SHARE DAIRY FARMER POCT GLUCOSE DEVICE Routine 05/18/2024 1 2:12 PM SHARE DAIRY FARMER TROPONIN T HIGH-SENSITIVITY 6-HOUR Timed 05/18/2024 11:02 AM SHARE DAIRY FARMER TROPONIN T HIGH-SENSITIVITY 4-HR Timed 05/18/2024 9:26 AM SHARE DAIRY FARMER POCT GLUCOSE DEVICE Routine 05/18/2024 8 :32 AM SHARE DAIRY FARMER SEPSIS LACTATE WITH REFLEX Timed 05/18/2024 7:21 AM SHARE DAIRY FARMER TROPONIN T HIGH-SENSITIVITY 2-HOUR Timed 05/18/2024 7:21 AM SHARE DAIRY FARMER PRO B-TYPE NATRIURETIC PEPTIDE STAT 05/18/2024 5:33 AM SHARE DAIRY FARMER BLOOD CULTURE Routine 05/18/2024 5:33 AM SHARE DAIRY FARMER XR CHEST 1 VIEW ED 05/18/2024 5:31 AM SHARE DAIRY FARMER BLOOD CULTURE Routine 05/18/2024 5:25 AM SHARE DAIRY FARMER BLOOD GAS, VENOUS STAT 05/18/2024 4:5 6 AM SHARE DAIRY FARMER SEPSIS LACTATE WITH REFLEX STAT 05/18/2024 4:56 AM SHARE DAIRY FARMER ECG 12-LEAD STAT 05/18/2024 4:55 AM SHARE DAIRY FARMER DIFFERENTIAL AUTO STAT 05/18/2024 4:5 4 AM SHARE DAIRY FARMER EGFR STAT 05/18/2024 4:54 AM SHARE DAIRY FARMER TROPONIN T HIGH-SENSITIVITY SERIES (BASELINE, 2HR, 4HR, 6HR) STAT 05/18/2024 4:54 AM SHARE DAIRY FARMER CBC WITH AUTO DIFFERENTIAL STAT 05/18/2024 4:54 AM SHARE DAIRY FARMER COMPREHENSIVE METABOLIC PANEL STAT 05/18/2024 4:54 AM SHARE DAIRY FARMER LIPID PANEL Routine 07/29/2023 3:57 PM CDT from Last 3 Months or Most Recently Relevant to Health Maintenance Results * eGFR (05/20/2024 8:42 AM SHARE DAIRY FARMER) eGFR >90 >=60 mL/min/1. 73 m2 Comment: [...] last reviewed 2021. Blood 05/20/2024 8:42 AM SHARE DAIRY FARMER 05/20/2024 8:47 AM SHARE DAIRY FARMER us Era Hugo MD LAB BLOOD ORDERABLES Kathy conrad Result [facility] ([facility]) 1 [facility] 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 [address] * (ABNORMAL) Basic metabolic panel (05/20/2024 8:42 AM SHARE DAIRY FARMER) Sodium 135 135 - 145 mmol/L Potassium, pl 3.5 3.3 - 4.9 mmol/L [facility] ([facility]) Chloride 102 97 - 110 mmol/L [facility] CO2 19(L) 22 - 32 mmol/L [facility] ([facility]) Anion gap 15 2 - 15 mmol/L [facility] BUN 11 6 - 25 mg/dL [facility] Creatinine 0.59(L) 0.80 - 1.30 mg/dL [facility] ([facility]) Glucose 103 70 - 199 mg/dL [facility] Comment: Interpretive Data Fasting glucose [...] 2022. Calcium 9.0 8.5 - 10.3 mg/dL [facility] ([facility]) Blood 05/20/2024 8:42 AM SHARE DAIRY FARMER 05/20/2024 8:47 AM SHARE DAIRY FARMER Era Hugo MD LAB BLOOD ORDERABLES Kathy l Result [facility] ([facility]) 1 [facility] [place] [employer] [place] [address] * POCT glucose (05/20/2024 8:11 AM SHARE DAIRY FARMER) Glucose, POC 119 70 - 199 mg/dL Blood 05/20/2024 8:11 AM SHARE DAIRY FARMER 05/20/2024 8:11 AM SHARE DAIRY FARMER Era Hugo MD LAB POCT ORDERABLES - DEV ICE Final Result Performing Organization Address City/[facility] Co de Phone Number V[facility]YL [facility] (P[facility]) 1 [facility] [place] [place] [address] * POCT glucose (05/20/2024 1:57 AM SHARE DAIRY FARMER) Glucose, POC 106 70 - 199 mg/dL Blood 05/20/2024 1:57 AM SHARE DAIRY FARMER 05/20/2024 1:57 AM SHARE DAIRY FARMER Era Hugo MD LAB POCT ORDERABLES - DEV ICE Final Result Performing Organization Address City/[facility]/ZIP Co de Phone Number [facility] (PONCE) 1 [facility] [place] [employer] [place] [address] * POCT glucose (05/19/2024 9:05 PM SHARE DAIRY FARMER) Glucose, POC 111 70 - 199 mg/dL Blood 05/19/2024 9:05 PM SHARE DAIRY FARMER 05/19/2024 9:05 PM SHARE DAIRY FARMER Era Hugo MD LAB POCT ORDERABLES - DEV ICE Final Result [facility] ([place]) 1 [facility] [place] [employer] [place] [address] * Potassium (05/19/2024 5:06 PM SHARE DAIRY FARMER) Potassium, pl 3.6 3.3 - 4.9 mmol/L Blood 05/19/2024 5:06 PM SHARE DAIRY FARMER 05/19/2024 5:10 PM SHARE DAIRY FARMER Era Hugo MD LAB BLOOD ORDERABLES Kathy l Result Performing Organization Address [facility]/ZIP Co de Phone Number [facility] (PONCE) 1 [facility] [place] [employer] [place] [address] * POCT glucose (05/19/2024 4:52 PM SHARE DAIRY FARMER) Glucose, POC 103 70 - 199 mg/dL Blood 05/19/2024 4:52 PM SHARE DAIRY FARMER 05/19/2024 4:52 PM SHARE DAIRY FARMER Era Hugo MD LAB POCT ORDERABLES - DEV ICE Final Result Performing Organization Address City/[facility]/ZIP Co de Phone Number [facility] ([place]) 1 [facility] [place] [employer] [place] [address] * POCT glucose (05/19/2024 12:16 PM SHARE DAIRY FARMER) Glucose, POC 92 70 - 199 mg/dL Blood 05/19/2024 12:1 6 PM SHARE DAIRY FARMER 05/19/2024 12:16 PM SHARE DAIRY FARMER Era Hugo MD LAB POCT ORDERABLES - DEV ICE Final Result Performing Organization Address City/[facility]/ZIP Co de Phone Number [facility] ([facility]) 1 [facility] 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 [address] * (ABNORMAL) Drugs of Abuse Screen, Urine with Reflex Confirmation (05/19/2024 9:09 AM SHARE DAIRY FARMER) Amphetamine, ur Not Detected CutOff 500ng/mL Comment: [...] 2023. Methadone, ur Not Detected CutOff 300ng/mL [facility] ([facility]) Comment: Interpretive Data - Methadone: Samples containing greater than 300 ng/mL d,l-methadone or other cross-reacting compounds are reported as positive. False positive and false negative results are possible. Confirmatory testing required for definitive results. Current Interpretive Data was last reviewed 2022. Opiates, ur Screen Positive, presumptive (A) CutOff 300ng/mL [facility] ([facility]) Comment: Interpretive Data - Opiates: Samples containing greater than 300 ng/mL morphine or other cross-reacting compounds are reported as positive. False positive and false negative results are possible. Confirmatory testing required for definitive results. Current Interpretive Data was last reviewed 2022. Oxycodone, ur Not Detected CutOff 100ng/mL [facility] ([facility]) Comment: Interpretive Data - Oxycodone: Samples containing greater than 100 ng/mL oxycodone or other cross-reacting compounds are reported as positive. False positive and false negative results are possible. Confirmatory testing required for definitive results. Current Interpretive Data was last reviewed 2022. Phencyclidine, ur Not Detected CutOff 25 ng/mL [facility] ([facility]) Comment: Interpretive Data - Phencyclidine: Samples containing greater than 25 ng/mL phencyclidine or other cross-reacting compounds are reported as positive. False positive and false negative results are possible. Confirmatory testing required for definitive results. Current Interpretive Data was last reviewed 2022. Urine Creatinine 80 mg/dL [facility] ([facility]) Comment: Interpretive Data Urine Creatinine: < 10 mg/dL is extremely dilute = or > 10 but < 20 mg/dL is dilute = or > 20 mg/dL is normal Current Interpretive Data was last revised on 2017. Urine 05/19/2024 9:09 AM SHARE DAIRY FARMER 05/19/2024 9:19 AM SHARE DAIRY FARMER Narrative [facility] ([facility]) - 05/19/2024 9:50 AM SHARE DAIRY FARMER Drug of Abuse screening is performed by immunoassay for medical purposes only. This is not to be used for Pain Management purposes. If Detected, confirmation testing will be performed for Amphetamines, Cocaine, Fentanyl, Methadone, Opiates, Oxycodone or Phencyclidine. Era Hugo MD LAB URINE ORDERABLES Kathy conrad Result Performing Organization Address City/[facility]/ZIP Co de Phone Number [facility] ([facility]) [address] [place] [address] [place] [address] * eGFR (05/19/2024 9:09 AM SHARE DAIRY FARMER) eGFR >90 >=60 mL/min/1. 73 m2 Comment: [...] last reviewed 2021. Blood 05/19/2024 9:09 AM SHARE DAIRY FARMER 05/19/2024 9:34 AM SHARE DAIRY FARMER us Era Hugo MD LAB BLOOD ORDERABLES Kathy l Result Performing Organization Address City/[facility]/ZIP Co de Phone Number [facility] ([facility]) 1 [facility] Department [place] [employer] [place] [address] * (ABNORMAL) Opiates Confirmation, Urine (05/19/2024 9:09 AM SHARE DAIRY FARMER) Codeine Conf, Ur Confirmed Positive(A) CutOff 50 ng/mL Comment:Testing performed by : [facility], [address] [place]., [address] 6- Acetylmorphine Conf, Ur Does Not Confirm CutOff 10 ng/mL [facility] ([facility]) Comment:Testing performed by : [facility], [address] [place]., [address] Hydrocodone Conf, Ur Does Not Confirm CutOff 50 ng/mL [facility] ([facility]) Comment:Testing performed by : [facility], [address] [place]., [address] Morphine Conf, Ur Does Not Confirm CutOff 50 ng/mL [facility] ([facility]) Comment:Testing performed by : [facility], [address] [place]., [address] Hydromorphone Conf, Ur Does Not Confirm CutOff 50 ng/mL [facility] ([facility]) Comment: Interpretive Data This test detects the presence or absence of drug compounds using LC Tandem mass spectrometry and is not intended to assess compliance with prescribed medications. While this test is highly specific, false positive and false negative results may occur in very rare circumstances. Contact the laboratory for consultation, if needed. Performance characteristics were determined by the [facility] [place] in a manner consistent with CLIA requirement and has not been cleared or approved by the U.S. Food and Drug Administration. Current interpretive data was last revised 2020. Testing performed by: [facility], [address] [place]., [address] Urine 05/19/2024 9:09 AM SHARE DAIRY FARMER 05/20/2024 9:48 AM SHARE DAIRY FARMER us Era Hugo MD LAB URINE ORDERABLES Kathy conrad Result [facility] ([facility]) 1 [facility] 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 [address] * Ethanol (05/19/2024 9:09 AM SHARE DAIRY FARMER) Ethanol <10 <=10 mg/dL Comment: Interpretive Data Legal limit of intoxication > or = 80 mg/dL Levels > or = 400 mg/dL are potentially TOXIC. Current interpretive data was last revised on 2018. Blood 05/19/2024 9:09 AM SHARE DAIRY FARMER 05/19/2024 9:34 AM SHARE DAIRY FARMER us Era Hugo MD LAB BLOOD ORDERABLES Kathy conrad Result [facility] ([facility]) 1 [facility] 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 [address] * (ABNORMAL) Comprehensive metabolic panel (05/19/2024 9:09 AM SHARE DAIRY FARMER) Sodium 133(L) 135 - 145 mmol/L Potassium, [...] [facility] ([facility]) Blood 05/19/2024 9:09 AM SHARE DAIRY FARMER 05/19/2024 9:34 AM SHARE DAIRY FARMER Era Hugo MD LAB BLOOD ORDERABLES Kathy l Result [facility] (RAYO) 1 [facility] [address] [place] [address] * POCT glucose (05/19/2024 7:58 AM SHARE DAIRY FARMER) Glucose, POC 97 70 - 199 mg/dL Blood 05/19/2024 7:58 AM SHARE DAIRY FARMER 05/19/2024 7:58 AM SHARE DAIRY FARMER us Era Hugo MD LAB POCT ORDERABLES - DEV ICE Final Result Performing Organization Address City/[facility]/ZIP Co de Phone Number [facility] (RAYO) 1 [facility] [place] [place] [address] * POCT glucose (05/19/2024 2:00 AM SHARE DAIRY FARMER) Glucose, POC 134 70 - 199 mg/dL Blood 05/19/2024 2:00 AM SHARE DAIRY FARMER 05/19/2024 2:00 AM SHARE DAIRY FARMER Era Hugo MD LAB POCT ORDERABLES - DEV ICE Final Result [facility] (RAYO) 1 [facility] [place] [employer] [place] [address] * POCT glucose (05/18/2024 8:46 PM SHARE DAIRY FARMER) Glucose, POC 143 70 - 199 mg/dL Blood 05/18/2024 8:46 PM SHARE DAIRY FARMER 05/18/2024 8:46 PM SHARE DAIRY FARMER Era Hugo MD LAB POCT ORDERABLES - DEV ICE Final Result [facility] ([facility]) 1 [facility] [place] [place] [address] * Procalcitonin (05/18/2024 6:33 PM SHARE DAIRY FARMER) Procalcitonin 0.17 <=0.25 ng/mL Comment:Testing performed by : [facility], [facility], [place]., [address] Blood 05/18/2024 6:33 PM SHARE DAIRY FARMER 05/19/2024 3:09 PM SHARE DAIRY FARMER Era Hugo MD LAB BLOOD ORDERABLES Kathy l Result [facility] ([place]) 1 [facility] [place] [address] * POCT glucose (05/18/2024 4:43 PM SHARE DAIRY FARMER) Glucose, POC 133 70 - 199 mg/dL Blood 05/18/2024 4:43 PM SHARE DAIRY FARMER 05/18/2024 4:43 PM SHARE DAIRY FARMER Era Hugo MD LAB POCT ORDERABLES - DEV ICE Final Result [facility] ([place]) 1 [facility] [place] [address] * POCT glucose (05/18/2024 12:12 PM SHARE DAIRY FARMER) Glucose, POC 145 70 - 199 mg/dL Blood 05/18/2024 12:1 2 PM SHARE DAIRY FARMER 05/18/2024 12:12 PM SHARE DAIRY FARMER us Era Hugo MD LAB POCT ORDERABLES - DEV ICE Final Result Performing Organization Address [facility]/ZIP Co de Phone Number [facility] (RAYO) 1 [facility] [place] [place] [address] * (ABNORMAL) Troponin T high-sensitivity 6-hour (05/18/2024 11:02 AM SHARE DAIRY FARMER) Trop T hs 24(H) <=22 ng/L Comment: Interpretive Data For further hscTnT resources including the diagnostic algorithm and an aid in interpretation, copy and paste this link: https://nrl.DrawQuest.org/show/hsTrop Current Interpretive Data last revised 2020. Trop T hs delta 3 ng/L [facility] ([facility]) Trop T hs interp Insignificant [facility] ([facility]) Blood 05/18/2024 11:0 2 AM SHARE DAIRY FARMER 05/18/2024 11:06 AM SHARE DAIRY FARMER us Sen Bojorqeuz MD LAB BLOOD ORDERABLES Final Re sult Performing Organization Address [facility] Co de Phone Number [facility] (RAYO) 1 [place] [address] * Troponin T high-sensitivity 4-hour (05/18/2024 9:26 AM SHARE DAIRY FARMER) Trop T hs 22 <=22 ng/L Comment: Interpretive Data For further hscTnT resources including the diagnostic algorithm and an aid in interpretation, copy and paste this link: https://nrl.testSplitSecnd.org/show/hsTrop Current Interpretive Data last revised 2020. Trop T hs delta 1 ng/L [facility] ([facility]) Trop T hs interp Insignificant [facility] ([facility]) Blood 05/18/2024 9:26 AM SHARE DAIRY FARMER 05/18/2024 9:28 AM SHARE DAIRY FARMER Sen Bojorquez MD LAB BLOOD ORDERABLES Final Re sult [facility] ([facility]ON[facility]) 1 [facility] 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 [employer] [place] [address] * POCT glucose (05/18/2024 8:32 AM SHARE DAIRY FARMER) Glucose, POC 158 70 - 199 mg/dL Blood 05/18/2024 8:32 AM SHARE DAIRY FARMER 05/18/2024 8:32 AM SHARE DAIRY FARMER Era Hugo MD LAB POCT ORDERABLES - DEV ICE Final Result Performing Organization Address [facility] Co de Phone Number [facility] ([place]ONCE) 1 [facility] [place] [employer] [place] [address] * Troponin T high-sensitivity 2-hour (05/18/2024 7:21 AM SHARE DAIRY FARMER) Pathologist [facility] Trop T hs 17 <=22 ng/L Comment: Interpretive Data For further hscTnT resources including the diagnostic algorithm and an aid in interpretation, copy and paste this link: https://nrl.testcatalog.org/show/hsTrop Current Interpretive Data last revised 2020. Trop T hs delta -4 ng/L [facility] ([facility]) Trop T hs interp Insignificant [facility] ([facility]) Blood 05/18/2024 7:21 AM SHARE DAIRY FARMER 05/18/2024 7:24 AM SHARE DAIRY FARMER us Sen Bojorquez MD LAB BLOOD ORDERABLES Final Re sult [facility] ([place]) 1 [facility] 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 [employer] [place] [address] * Sepsis Lactate w/ Reflex (05/18/2024 7:21 AM SHARE DAIRY FARMER) Sepsis Lactate 1.9 0.7 - 2.0 mmol/L Blood 05/18/2024 7:21 AM SHARE DAIRY FARMER 05/18/2024 7:24 AM SHARE DAIRY FARMER us Sen Bojorquez MD LAB BLOOD ORDERABLES Final Re sult [facility] ([facility]) 1 [facility] 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 [address] * (ABNORMAL) Pro B-type natriuretic peptide (05/18/2024 5:33 AM SHARE DAIRY FARMER) NT-proBNP 404(H) <=300 pg/mL Comment: Interpretive Comments: [...] as advanced age. - References: 1. Donte PANDEY et.al. Eur Heart J. 2006:27:330-337. 2. Danae VIZCARRA, Trever AGUIRRE. J. AM Stefanie Cardiol: Cardiovasc Imag. 2009;2: 216- 225. Interpretive Data Last Revised Date: 2017. Blood 05/18/2024 5:33 AM SHARE DAIRY FARMER 05/18/2024 5:37 AM SHARE DAIRY FARMER Sen Bojorquez MD LAB BLOOD ORDERABLES Final Re sult Performing Organization Address City/[facility]/ZIP Co de Phone Number [facility] RAYO) 1 [facility] 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 [address] * Blood culture Blood (05/18/2024 5:33 AM SHARE DAIRY FARMER) Report Final Report: No growth Comment:Testing performed by : [facility], 1 [place] [address] Blood 05/18/2024 5:33 AM SHARE DAIRY FARMER 05/18/2024 10:19 AM SHARE DAIRY FARMER Narrative [facility] (RAYO) - 05/22/2024 12:00 PM SHARE DAIRY FARMER From a different site than #1. Collection->Peripheral [...] performance characteristics have been verified by the [facility] Microbiology Laboratory. For questions about this culture, contact the Microbiology Laboratory at [phone]. Interpretive data was last revised on 24. Sen Bojorquez MD LAB MICROBIOLOGY - GENERAL OR DERABLES Final Result Performing Organization Address City/[facility]/ZIP Co de Phone Number [facility] (RAYO) [address] [place] [address] 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 [address] * XR Chest 1 Vw Portable (if patient condition/safety warrant portable) (05/18/2024 5:31 AM SHARE DAIRY FARMER) Anatomical Region Laterality Modality Body, Chest N/A Computed Radiogr aphy 05/18/2024 5:34 AM SHARE DAIRY FARMER Narrative 05/18/2024 5:37 AM SHARE DAIRY FARMER EXAM DESCRIPTION: XR CHEST 1 VIEW REASON [...] Aubrey Peterson M.D. MZ: RAE Report ID: [id number] Reading Location: [place] [address] Procedure Note Aubrey Peterson MD - 05/18/2024 [...] Electronically signed by Aubrey Peterson M.D. MZ: MZ Report ID: [id number] Reading Location: [place] [address] Sen Bojorquez MD IMG XR PROCEDURES Final Resul t * Blood culture Blood (05/18/2024 5:25 AM SHARE DAIRY FARMER) Report Final Report: No growth Comment:Testing performed by : [facility], [address] [facility], [place]., [address] Blood 05/18/2024 5:25 AM SHARE DAIRY FARMER 05/18/2024 10:18 AM SHARE DAIRY FARMER Narrative [facility] ([facility]) - 05/22/2024 12:00 PM SHARE DAIRY FARMER Received only aerobic blood culture bottle. Collection->Peripheral [...] performance characteristics have been verified by the [facility] Microbiology Laboratory. For questions about this culture, contact the Microbiology Laboratory at [phone]. Interpretive data was last revised on 24. Sen Bojorquez MD LAB MICROBIOLOGY - GENERAL OR DERABLES Final Result [facility] (PONCE) 1 [facility] 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 [place] [address] * (ABNORMAL) Sepsis Lactate w/ Reflex (05/18/2024 4:56 AM SHARE DAIRY FARMER) Sepsis Lactate 2.7(H) 0.7 - 2.0 mmol/L Blood 05/18/2024 4:56 AM SHARE DAIRY FARMER 05/18/2024 4:59 AM SHARE DAIRY FARMER Sen Bojorquez MD LAB BLOOD ORDERABLES Final Re sult Performing Organization Address [facility] Co de Phone Number [facility] (PONCE) 1 [facility] [place] [address] * (ABNORMAL) Blood gas, venous (05/18/2024 4:56 AM SHARE DAIRY FARMER) pH, Venous 7.29(L) 7.32 - 7.43 PCO2, Venous 39(L) 40 - 50 mmHg [facility] ([facility]) PO2, Venous 38 mmHg [facility] (PONCE) Comment: Interpretive Data No reference range established. Current interpretive data was last revised 2017. HCO3 Venous, Calculated 18(L) 20 - 30 mmol/L [facility] ([facility]) BE, venous -7 mmol/L [facility] ([facility]) Comment: Interpretive Data No Reference Range Established Current Interpretive Data was last revised on 2017. Blood 05/18/2024 4:56 AM SHARE DAIRY FARMER 05/18/2024 5:19 AM SHARE DAIRY FARMER Sen Bojorquez MD LAB BLOOD ORDERABLES Final Re sult Performing Organization Address [facility]/ZIP Co de Phone Number [facility] (PONCE) 1 [facility] 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 [place] [address] * ECG 12 lead (05/18/2024 4:55 AM SHARE DAIRY FARMER) 05/18/2024 4:55 AM SHARE DAIRY FARMER Narrative [facility] - 05/18/2024 10:58 AM SHARE DAIRY FARMER Vent Rate: 117 bpm RR Interval: 511 msec RI Interval: 152 msec QRS Duration: 81 msec QT Interval: 315 msec QTC Interval: 384 msec P-R-T [place]: 52 - 52 - 35 degrees IMPRESSION: SINUS TACHYCARDIA POSSIBLE LEFT ATRIAL ENLARGEMENT [-0.1mV P-WAVE IN V1/V2] SEPTAL MYOCARDIAL INFARCTION , OF INDETERMINATE AGE [40+ ms Q WAVE IN V1/V2] ABNORMAL ECG Electronically Signed By: Maciej Davis MD us Sen Bojorquez MD ECG ORDERABLES Final Result [facility] * Troponin T high-sensitivity series (baseline, 2hr, 4hr, 6hr) (05/18/2024 4:54 AM SHARE DAIRY FARMER) Trop T hs 21 <=22 ng/L Comment: Interpretive Data For further hscTnT resources including the diagnostic algorithm and an aid in interpretation, copy and paste this link: https://nrl.testcatalog.org/show/hsTrop Current Interpretive Data last revised 2020. Blood 05/18/2024 4:54 AM SHARE DAIRY FARMER 05/18/2024 4:59 AM SHARE DAIRY FARMER us Sen Bojorquez MD LAB BLOOD ORDERABLES Final Re sult [facility] ([facility]) [facility] 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 [address] * eGFR (05/18/2024 4:54 AM SHARE DAIRY FARMER) eGFR >90 >=60 mL/min/1. 73 m2 Comment: [...] last reviewed 2021. Blood 05/18/2024 4:54 AM SHARE DAIRY FARMER 05/18/2024 4:59 AM SHARE DAIRY FARMER us Sen Bojorquez MD LAB BLOOD ORDERABLES Final Re sult [facility] ([place]) [facility] 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 [address] * (ABNORMAL) Differential, auto (05/18/2024 4:54 AM SHARE DAIRY FARMER) Neutrophil abs 5.1 1.5 - 6.5 K/cumm Imm gran abs 0.0 0.0 - 0.1 K/cumm [facility] ([facility]) Lymphocyte abs 0.3(L) 0.8 - 3.3 K/cumm [facility] ([place]) Monocyte abs 0.8 0.2 - 0.8 K/cumm [facility] ([facility]) Eosinophil abs 0.0 0.0 - 0.5 K/cumm [...] revised on 2017. Basophil pct 1.0 % [facility] ([place]) Comment: Interpretive Data Percent cell count reference ranges are not reported, since discordance with absolute values may lead to misinterpretation of CBC data. Current Interpretive Data was last revised on 2017. Blood 05/18/2024 4:54 AM SHARE DAIRY FARMER 05/18/2024 4:59 AM SHARE DAIRY FARMER us Sen Bojorquez MD LAB BLOOD ORDERABLES Final Re sult [facility] ([facility]) [facility] 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 [address] * CBC with auto differential (05/18/2024 4:54 AM SHARE DAIRY FARMER) WBC 6.3 3.8 - 9.9 K/cumm Hgb 16.5 13.0 - 17.5 g/dL [facility] ([place]) Hct 49.9 38.9 - 50.3 % [facility] ([facility]) Plt 181 150 - 400 K/cumm [facility] ([place]) MPV 9.4 9.1 - 12.3 fL [facility] ([facility]) RBC 5.71 4.30 - 5.80 M/cumm [facility] ([place]) MCV 87.4 81.3 - 96.4 fL [facility] ([facility]) MCH 28.9 27.1 - 33.3 pg [facility] ([facility]) MCHC 33.1 32.3 - 35.7 g/dL [facility] ([facility]) RDW CV 13.0 11.1 - 14.9 % [facility] ([facility]) RDW SD 41.6 35.7 - 48.1 fL [facility] ([facility]) NRBC abs 0.00 0.00 - 0.01 K/cumm [facility] ([facility]) Blood 05/18/2024 4:54 AM SHARE DAIRY FARMER 05/18/2024 4:59 AM SHARE DAIRY FARMER us Sen Bojorquez MD LAB BLOOD ORDERABLES Final Re sult [facility] ([facility]) [facility] 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 [address] * (ABNORMAL) Comprehensive metabolic panel (05/18/2024 4:54 AM SHARE DAIRY FARMER) Sodium 133(L) 135 - 145 mmol/L Potassium, pl 3.5 3.3 - 4.9 mmol/L [facility] ([facility]) Chloride 92(L) 97 - 110 mmol/L [facility] ([facility]) CO2 17(L) 22 - 32 mmol/L [facility] ([place]) Anion gap 24(H) 2 - 15 mmol/L [facility] ([facility]) BUN 12 6 - 25 mg/dL [facility] ([place]) Creatinine 0.64(L) 0.80 - 1.30 mg/dL [facility] ([facility]) Glucose 171 70 - 199 mg/dL [facility] ([facility]) Comment: Interpretive Data Fasting glucose >/= [...] [facility] ([facility]) Blood 05/18/2024 4:54 AM SHARE DAIRY FARMER 05/18/2024 4:59 AM SHARE DAIRY FARMER Sen Bojorquez MD LAB BLOOD ORDERABLES Final Re sult [facility] ([facility]) [facility] 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 [address] * Lipid panel (07/29/2023 3:57 PM CDT) SCRIBED Cholesterol, Total 85 <200 [facility] SCRIBED HDL 37 >40 [facility] S[facility] LDL 20 <100 [facility] SCRIB[facility] Triglycerides 227 <150 [facility] Blood Historical Provider LAB BLOOD ORDERABLES Edit ed Result - Final [facility] from Last 3 Months or Most Recently Relevant to Health Maintenance Insurance [facility] Advance Directives For more information, please contact: [phone] * LIMITED - No CPR (Latest Code [...] 7:46 AM 05/19/2024 10:30 AM Care Teams Route Salesperson Relationship Specialty Start Date End Date Lisseth Lund MD [address] [place] [id number] PCP - General 07/18/16
--- OUTSIDE RECORDS SUMMARY | 2024-07-18 08:56 | XMS_ITS | Data Portability ---
Author Organization [facility] Aragon SI (11) Address [id number] [place] [id number] Care Team Providers Care Spinner Iron Name Role Phone AFIA ALEXANDER Referring Provider [phone] Assessment No assessment recorded. Plan of Treatment Reminders Order Date Submit Date Provider Last Modified By Organization Details Last Modified Time Details Appointments None record ed. Lab None record ed. Referral None record ed. Procedures None record ed. Surgeries None record ed. Imaging None record ed. Medication Orders None record ed. Patient TargetsNo targets recorded. Patient InstructionsNo instructions recorded. Reason for Referral None Reported. Procedures Surgical History Date Name Laterality Status Provider Name and Address Organization Details Recorded Time 01/12/2018 Sleep Study completed Royal Lin [address] [facility] [address], [place], [address], [facility] 01/16/2018 10:36:03 Imaging Results None recorded. Procedure Notes None recorded. Medical Equipment None Reported. Medications Name Sig Start Date Stop Date Status Note LastModified by Organization Details LastModified Time cyclobenzaprine 10 mg tablet active Not Available Not Available Not Available nicotine 14 mg/24 hr daily transdermal patch active Not Available Not Avai lable Not Available omeprazole 40 mg capsule,delayed release active Not Available Not Available Not Available amlodipine 10 mg tablet active Not Available Not Available Not Available levothyroxine 50 mcg tablet active Not Available Not Available N ot Available irbesartan 150 mg tablet active Not Available Not Available Not Available Vitamin D2 1,250 mcg (50,000 unit) capsule active Not Available Not Available Not Available colestipol 1 gram tablet active Not Available Not Available Not Available Pneumovax-23 25 mcg/0.5 mL injection syringe active Not Available Not Avai lable Not Available Lyrica 50 mg capsule active Not Available Not Available Not Available Lyrica 100 mg capsule active Not Available Not Available Not Available Janumet XR 100 mg-1,000 mg tablet,extended release active Not Available Not Available Not Available Jardiance 10 mg tablet active Not Available Not Available Not Available Trulicity 0.75 mg/0.5 mL subcutaneous pen injector active Not Available Not Available Not Available Shingrix (PF) 50 mcg/0.5 mL intramuscular suspension, kit active Not Available Not Availa ble Not Available Vitals None Recorded Social History None recorded. Functional Status None recorded. Mental Status None recorded. Family History Nothing Reported. Medical History No medical history recorded. Past Encounters Encounter ID Performer Location Encounter Start Date Encounter Closed Date Diagnosis/Indication Diagnosis SNOMED-CT Code Diagnosis ICD10 Code Diagnosis Note [id number] Royal Lin CSI [phone] [place] [address] 01/12/2018 13:44:33 01/15/2018 14:37:22 Obstructive sleep apnea of adult 2132348707 103 G47.33 Health Concerns Section Related Observation LastModified by Organization Detai ls LastModified Time None Recorded Concern Status LastModified by Organization Details LastModified Time None Recorded Advance Directives Directive None Recorded Payers Encounter Date Sequence Insurance Name Policy Number Policy Arcos Covered Member ID Arcos Member ID Guarantor Name 01/10/2018 1 [employer] [id number] Iain Nguyen [id number] Iain Nguyen
--- OUTSIDE RECORDS SUMMARY | 2024-07-18 08:57 | XMS_ITS | Encounter Summary ---
Author Organization [facility] Address [address] [facility] [address] [place] [id number] Care Team Providers Care Audio Visual Production Specialist Name Role Phone Lisseth Lund MD Primary Care Provider Lisseth Lund MD Primary Care Provider Encounter Details Date Type Department Care Team (Late st Contact Info) Description 05/26/2016 Orders Only [facility] ProviderDeion MD [address] [place], [place] [id number] Social History Tobacco Use Types Packs/Day Years Used Date Smoking Tobacco: Heavy Smoker Comments:Smoking History Pac ks/day: 2 Packs Alcohol Use Standard Drinks/Week Comments No 0 (1 standard drink = 0.6 oz pur e alcohol) Sex and Gender Information Value Date Recorded Sex Assigned at Not on file Legal Sex Male 7:28 PM 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 Historical Provider [facility] NOEL OCHOA Final Result documented in this encounter Visit Diagnoses Not on filedocumented in this encounter Additional Health Concerns Infection Onset Date Last Indicated Resolved Time COVID: Suspected 05/18/2024 05/18/2024 05/18/2024 5:27 AM ENGINEERING LAB TECHNICIAN Influenza, adult 05/20/2024 05/20/2024 05/27/2024 3:05 AM ENGINEERING LAB TECHNICIAN documented as of this encounter Care Teams Audio Visual Production Specialist Relationship Specialty Start Date End Date Lisseth Lund MD [address] [place] [address] PCP - General 07/18/16 Lisseth Lund MD [address] [place] [address] PCP - General 04/18/16 07/17/16 documented as of this encounter
--- OUTSIDE RECORDS SUMMARY | 2024-07-18 08:57 | XMS_ITS | Clinical Summary ---
Author Organization [facility] Address [address] [place] [address] Phone Care Team Providers Care Restaurant Line Cook Name Role Phone STACY GREGORY, MARYA Unavailable [phone] LUCAS SALAS MD Unavailable [phone] HAYLEY FISCHER, MARCEL Walker Primary Care Provider [phone] KALEB SILVA MD Unavailable [phone] Reason for Visit and Chief Complaint * PHONE CALL Problems Includes: Problems addressed during this encounter and other active Problems All Visits Onset Date Resolved Date Provider Condition S tatus Sciatica Bilateral 02/25/2022 TAMICA Aragon Active Last Documented On 2 9:43AM ; [facility] Primary Insomnia 01/25/2022 MARYA KUMAR MD Active Last Documented On 2 2:57PM ; [facility] Arthralgia - Shoulder Region Bilateral 01/24/2018 MARYA KUMAR MD Active Last Documented On 01/24/2018 11:24AM ; [facility] Note: ---GIVE CORTISONE INJ ANTERIORLY Peripheral Neuropathy 10/18/2017 MARYA GALDAMEZ MD Active Last Documented On 8 9:12AM ; [facility] Personal history of colonic polyps 06/02/2017 Annie WEN DO Active Last Documented On 8 9:49AM ; [facility] Note: Unchanged Hypothyroidism 02/05/2016 MARYA KUMAR MD Active Last Documented On 6 4:34PM ; [facility] Depression 12/31/2009 MARYA KUMAR MD Act tamie Last Documented On 7 4:27PM ; [facility] Diabetes Mellitus Type 2 09/03/2008 MARYA DOLAN MD Active Last Documented On 0 11:25PM ; [facility] Hyperlipidemia 09/03/2008 MARYA KUMAR MD Active Last Documented On 1 11:12AM ; [facility] Essential Hypertension Benign 09/03/2008 MARYA KUMAR MD Active Last Documented On 0 11:25PM ; [facility] Plan of Treatment Pending Tests Order Diagnosis Results Due Ordering P rovider Lab TSH 04/19/23 MARYA GALDAMEZ MD Last Documented On 3 12:24PM ; [facility] Lab A1C HGB (GLYCO HEMOGLOBIN) 04/19/23 MARYA KUMAR MD Last Documented On 3 12:24PM ; [facility] Lab LIPID PANEL 04/19/23 MARYA LOPEZ MD Last Documented On 3 12:24PM ; [facility] Lab CMP 04/19/23 MARYA GALDAMEZ MD Last Documented On 3 12:24PM ; [facility] Lab PSA SCREEN 04/19/23 MARYA GALDAMEZ MD Last Documented On 3 12:24PM ; [facility] Lab Comp Metabolic Panel 07/30/23 CLIFFORD KUMAR MD Last Documented On 4 2:55PM ; [facility] Lab HgbA1C 07/30/23 MARYA GALDAMEZ MD Last Documented On 4 2:55PM ; [facility] Lab LIPID 07/30/23 MARYA GALDAMEZ MD Last Documented On 4 2:55PM ; [facility] Assessments Includes: Assessments from this encounter [...] 4 12:09AM By MARYA KUMAR MD ; [facility] Jardiance 25 MG Oral Tablet 10/04/2023 Provider: MARYA Rose Diagnosis: Type 2 diabetes mellitus without complications 1 tablet every morning Last Documented On 4 9:18AM By MARYA KUMAR MD ; [facility] Cyclobenzaprine HCl 10 MG Oral Tablet 10/04/2023 Pro vider: MARYA KUMAR MD Diagnosis: One tablet at bed time Last Documented On 4 9:34AM By MARYA KUMAR MD ; [facility] Acetaminophen-Codeine 300-60 MG Oral Tablet 10/04/2023 Provider: MARYA Rose Diagnosis: Cervicalgia TAKE 1 TO 2 TABLETS BY MOUTH 4 TIMES DAILY NEEDED Last Documented On 4 1:09PM By RYAN ALY ; [facility] Ozempic (0.25 or 0.5 MG/DOSE) 2 MG/3ML Subcutaneous Solution Pen-injector 09/11/2023 Provider: MARYA Rose Diagnosis: Type 2 diabetes mellitus without complications 0.50 mg once weekly Last Documented On 4 1:26PM By MARYA KUMAR MD ; [facility] Losartan Potassium 50 MG Oral Tablet 08/01/2023 Prov ider: MARYA KUMAR MD Diagnosis: Take 1 tablet by mouth once daily Last Documented On 4 1:09PM By RYAN ALY ; [facility] Pregabalin 100 MG Oral Capsule 07/18/2023 Provider: MARYA KUMAR MD Diagnosis: Take 1 capsule by mouth twice daily Last Documented On 4 1:11PM By MARYA KUMAR MD ; [facility] Vitamin D (Ergocalciferol) 1 .25 MG (52374 UT) Oral Capsule 07/03/2023 Provider: MARYA Rose Diagnosis: TAKE 1 CAPSULE BY MOUTH EVERY OTHER WEEK Last Documented On 07/03/2023 12:52PM By Kizzy ALY ; [facility] Repatha SureClick 140 MG/ML Subcutaneous Solution Auto-injector 06/05/2023 Provider: MARYA Ruiz MD Diagnosis: as directed inject 140mg SQ every other week for cholesterol Last Documented On 4 11:58AM By MARYA KUMAR MD ; [facility] EQ Nicotine 14 MG/24HR Transdermal Patch 24 Hour 12/16/2022 Provider: MARYA GALDAMEZ MD Diagnosis: Nicotine depende nce, cigarettes, uncomplicated as directed on am and off pm Last Documented On 3 9:21AM By MARYA KUMAR MD ; [facility] Syringe 25G X 1 3 ML Miscellaneous 05/23/2022 Provi dean: MARYA KUMAR MD Diagnosis: USE WITH B12 SHOTS Last Documented On 05/23/2022 7:30AM By NADIR Franklin LPN ; [facility] Cyanocobalamin 1000 MCG/ML I njection Solution 05/20/2022 Provider: MARYA Rose Diagnosis: inject 1ml once a week for 6 weeks, then once a month Last Documented On 05/20/2022 5:17PM By Kizzy ALY ; [facility] Past Medications on file amLODIPine Besylate 10 MG Oral Tablet 08/29/2023 - 11/27/2023 Provider: MARYA ST MD Diagnosis: Take 1 tablet by mouth once daily Last Documented On 08/29/2023 5:14PM By Kizzy ALY ; [facility] Nortriptyline HCl 10 MG Oral Capsule 12/22/2022 - 01/21/2023 Provider: MARCEL HARDY PA-C Diagnosis: 1-2 cap po q HS PRN sleep. Last Documented On 3 4:10PM By MARCEL HARDY PA-C ; [facility] LORazepam 0.5 MG Oral Tablet 06/21/2021 - 06/28/2021 P rovider: MARYA GALDAMEZ MD Diagnosis: 1 every 6 hours as needed PRN Last Documented On 2 2:34PM By MARYA KUMAR MD ; [facility] Medications Administered Includes: Administered Medications from this encounter No Administered Medications Recorded Results Includes: Results discussed during this encounter No Results Recorded For Specified Dates History of Present Illness Includes: History of Present Illness from this encounter HPI will try to get him in monday Social History Description Last Updated 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 None 03/31/2023 Last Documented On 4 2:41PM ; [facility] Smoking packs of cigarettes per day Two packs a day 01/25/2023 Last Documented On 4 2:41PM ; [facility] Tobacco non-user 11/07/2022 Last Documented On 4 2:41PM ; [facility] Cigarette smoking: history 2 packs per d ay 02/15/2022 Last Documented On 4 2:41PM ; [facility] Current smoker for 38 years 02/15/2022 Last Documented On 4 2:41PM ; [facility] Smoking status : Current everyday smoker 2 ppd 08/13/2020 Last Documented On 4 2:41PM ; [facility] Smoker 12/26/2019 Last Documented On 4 2:41PM ; [facility] Procedures and Surgical History Surgical History Last Updated History of back surgery 08/22 Dr. Liset Lopez @ [facility] ~-Anterior cervical diskectomy C5-6 & C6-7 ~-Anterior cervical arthrodesis C5-6 & C6-7 w. i-factor ~-Anterior cervical interbody placement at C5-6 & C6-7 09/07/2023 Last Documented On 4 11:43AM ; [facility] History of cholecystectomy 2 005 - Re-operation shortly post operative for bleeding. ~LT KIDNEY STONE, STENT PLACED 12/[address] BROWN ~PROSTATE PARTIALLY REMOVED 08/202002/26/2021 Last Documented On 4 2:41PM ; [facility] History of tonsillectomy with adenoidect chiqui 199611/07/2011 Last Documented On 4 2:41PM ; [facility] Medical History Includes: Medical History addressed during this encounter Description Last Updated Has had a fall in the last 1 2 months. STEPPED IN HOLE AND FELL DOWN. ~ALSO A FALL STEPPING INTO TRUCK AND STEP WASN'T FASTENED 01/25/2023 Last Documented On 4 2:41PM ; [facility] Blood pressure was high 01/25/2023 Last Documented On 4 2:41PM ; [facility] Hypertension 01/25/2023 Last Documented On 4 2:41PM ; [facility] Taking medication for high blood pressur e 01/25/2023 Last Documented On 4 2:41PM ; [facility] Injection/Nerve blocks 01/25/2023 Last Documented On 4 2:41PM ; [facility] Moderate to severe pain 01/25/2023 Last Documented On 4 2:41PM ; [facility] Please list all illnesses/co nditions you have been diagnosed with: High blood pressure and diabetes 01/25/2023 Last Documented On 4 2:41PM ; [facility] Please list all surgeries: I have surgery. I had done [facility] in [place], [place] to remove part of my prostate. Can?t remember the date 01/25/2023 Last Documented On 4 2:41PM ; [facility] Last visit 12/16/2022 DR VENEGAS 3 Last Documented On 4 2:41PM ; [facility] Vaccine history June 29 2022 12/16/2022 Last Documented On 4 2:41PM ; [facility] History of colonoscopy fiberoptic was pe rformed 07/12/2021 repeat in 5 yrs 11/22/2022 Last Documented On 4 2:41PM ; [facility] Diabetes managed by insulin 09/29/2022 Last Documented On 4 2:41PM ; [facility] Insulin/carbohydrate ratio by home blood sugar check 09/29/2022 Last Documented On 4 2:41PM ; [facility] Long-term use of insulin 09/29/2022 Last Documented On 4 2:41PM ; [facility] History of nicotine dependence 2 Last Documented On 4 2:41PM ; [facility] History of diabetes mellitus 02/10/2020 Last Documented On 4 2:41PM ; [facility] History of hyperlipidemia 02/10/2020 Last Documented On 4 2:41PM ; [facility] History of hypertension 02/10/2020 Last Documented On 4 2:41PM ; [facility] History of thyroid disorder 02/10/2020 Last Documented On 4 2:41PM ; [facility] Taking OTC allergy medication decongesta nt 09/06/2016 Last Documented On 4 2:41PM ; [facility] History of esophageal reflux 11/07/2011 Last Documented On 4 2:41PM ; [facility] History of hiatal hernia 11/07/2011 Last Documented On 4 2:41PM ; [facility] History of irritable bowel syndrome 12/2011 Last Documented On 4 2:41PM ; [facility] carpal tunnel right hand 1997 11/07/2011 Last Documented On 4 2:41PM ; [facility] Exposure airborne chemical particulate 0 09/03/2008 Last Documented On 4 2:41PM ; [facility] Family History Includes: Family History addressed during this encounter Description Last Updated Fraternal history of family history of i schemic heart disease 01/25/2023 Last Documented On 4 2:41PM ; [facility] Fraternal history of stroke/paralysis Last Documented On 4 2:41PM ; [facility] Maternal history of Arthritis 01/25/2023 Last Documented On 4 2:41PM ; [facility] Maternal history of stroke/paralysis Last Documented On 4 2:41PM ; [facility] Paternal history of family history of is chemic heart disease 01/25/2023 Last Documented On 4 2:41PM ; [facility] Maternal history of systemic hypertension ~mom had many CVA ~sister age 70 CVA ~brother with CVA age 63 03/28/2022 Last Documented On 4 2:41PM ; [facility] Family history unchanged 01/13/2021 Last Documented On 4 2:41PM ; [facility] Maternal history of family history of ca ncer 12/07/2016 Last Documented On 4 2:41PM ; [facility] Paternal history of family history of he art disease 12/07/2016 Last Documented On 4 2:41PM ; [facility] Paternal history of diabetes mellitus FA THER, BROTHER 08/29/2014 Last Documented On 4 2:41PM ; [facility] Review of Systems Includes: Review of [...] ve Last Documented On 4 1:08PM ; [facility] traMADol HCl Intolerance Sleeplessness / Insomnia 08/13/2020 Active Last Documented On 4 1:08PM ; [facility] Statins Allergy 03/28/2022 Active Last Documented On 09/11/2023 1:08PM ; [facility] Note: leg pains HYDROcodone-Acetaminophe n Intolerance Sleeplessness / Insomnia 12/28/2018 Act tamie Last Documented On 4 1:08PM ; [facility] Encounters Encounter Provider Location Date Check-In Time Check-Out Time Diagnosis * PHONE CALL MARYA KUMAR MD 09/04/2023 2:41PM 11:59PM Insurance Includes: Active Insurance Policies Plan Name Member ID Group # Subscriber Relationship Effect tamie Dates 1 - [facility] [id number] LEXY russo 2 - MEDICAID [facility] [facility] [id number] LEXY HOLLIS Self Clinical Notes Includes: Clinical Notes from this encounter * Progress note Date Encounter Last Documented by 09/04/2023 * PHONE CALL Last documented on 2023; 11:43 AM, MARYA VENEGAS- DENICE GREGORY; [facility] Active Problems & Conditions [...] Call - Chief Concern: Reason for call: he is 2 weeks out from surgery and is asking if he can have a cortisone shot in his left hip pt phone # for return call: Date/Initials: 09-04-23. History of Present Illness will try to get him in monday Current Medication - amLODIPine Besylate 10 MG [...] refills - Vitamin D (Ergocalciferol) 1.25 MG (05613 UT) Oral Capsule TAKE 1 CAPSULE BY MOUTH EVERY OTHER WEEK, 84 days, 1 refills Past Medical/Surgical History Reported: Injection/Nerve blocks, Please list all illnesses/conditions you have been diagnosed with: High blood pressure and diabetes, and Please list all surgeries: I have surgery. I had done [facility] in [place], [place] to remove part of my prostate. Can?t remember the date. Medical: Last visit 12/16/2022 DR VENEGAS, Vaccine history June 29 2022, orthopedic history Left Knee Score mild pain Moderate to severe pain, Diabetes Diabetes managed by insulin, and Hypertension. Medications: Taking medication for high blood pressure, medication for diabetes long-term use of insulin, and [id number] allergy medication decongestant. Tests: Blood pressure was [...] PROSTATE PARTIALLY REMOVED 08/2020 - Back surgery 08/23/23 Dr. Liset Lopez @ [facility] -Anterior cervical diskectomy C5-6 & C6-7 -Anterior [...] more drinks per day None. Drug Use: Number of times used recreational drug/ prescription drug for nonmedical reason. None. 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 - Assess Tobacco Use satisfied 09/04/2023. - Colorectal Cancer Screening satisfied 07/12/2021.
== END 2024-07-18 08:43 | disposition home or self-care (01) ==
PROVIDERS: Visit Provider Neurological Surgery
DX: Z98.1 Arthrodesis status (principal)
CPT/HCPCS: 72040